=== PATIENT | male | born 1970 | race Two or more races ===

== ENCOUNTER 2021-06-10 22:31 | Inpatient (IN) | payer MEDICARE, OTHER ==
[~2021-06-10] VITALS: Ht 165.1 cm; Wt 193.2 kg
[2021-06-11 02:38] LABS: Basophils # (auto) 0.1 10 ^3/uL (0-0.2); Basophils % (auto) 1.3 % (0.0-2.0); Eosinophils # (auto) 0.1 10 ^3/uL (0-0.8); Eosinophils % (auto) 1.4 % (0.0-7.0); Hematocrit 44.5 % (41.0-53.0); Hemoglobin 14.7 g/dL (13.5-17.5); Lymphocytes # (auto) 2.4 10 ^3/uL (0.4-5.4); Lymphocytes % (auto) 36.1 % (10.0-50.0); Mean Corpuscular Hemoglobin 28.7 pg (28.0-32.0); Mean Corpuscular Hgb Conc. 33.1 g/dL (32.0-36.0); Mean Corpuscular Volume 86.6 fL (80.0-100.0); Monocytes # (auto) 0.5 10 ^3/uL (0-1.3); Monocytes % (auto) 6.8 % (0.0-12.0); Neutrophils # (auto) 3.6 10 ^3/uL (1.6-8.6); Neutrophils % (auto) 54.4 % (37.0-80.0); Nucleated Red Blood Cells % 0.1 %; Red Blood Cells 5.14 10^6/uL (4.5-5.90); Red Cell Distribution Width 16.1 % (11.8-14.3); White Blood Cell 6.7 10^3/uL (4.4-10.8)
[2021-06-11 02:59] LABS: Albumin 3.6 g/dL (3.4-5.0); BUN/Creatinine Ratio 13.9; Calcium 8.7 mg/dL (8.5-10.1); Magnesium 2.1 mg/dL (1.6-2.6); Potassium 4.8 mmol/L (3.5-5.1)
[2021-06-11 03:04] LABS: Lactic Acid w/Reflex 2.1 mmol/L (0.4-2.0)
[2021-06-11 03:06] LABS: Bilirubin, Total 0.4 mg/dL (0.2-1.0); Total Protein 7.8 g/dL (6.4-8.2)
[2021-06-11] MEDS ORDERED: SITA100T7 PO (05:39)
[2021-06-11] MEDS ORDERED: ALBU108A5 IN (05:39)
[2021-06-11] MEDS ORDERED: ICOS1CAP OR (05:40)
[2021-06-11] MEDS ORDERED: CARV12.544 PO (05:41)
[2021-06-11] MEDS ORDERED: ALL100T PO (05:41)
[2021-06-11] MEDS ORDERED: HYDR50TA15 PO ×2 (05:42→05:46)
[2021-06-11] MEDS ORDERED: SPIR25TA8 PO (05:43)
[2021-06-11] MEDS ORDERED: levETIRAcetam 500 MG TAB PO ONE (05:45)
[2021-06-11] MEDS ORDERED: SODIUM CHLORIDE 0.9% 1,000 ML IV ONE (05:45)
[2021-06-11] MEDS ORDERED: levoFLOXacin 750MG 150 ML IV ONE (05:45)
[2021-06-11] MEDS ORDERED: VANCOMYCIN 1GM/250ML 250 ML IV ONE (05:45)
[2021-06-11] MEDS ORDERED: LISI2.5T47 PO (05:47)
[2021-06-11] MEDS ORDERED: GLYB5TAB9 PO (05:48)
[2021-06-11] MEDS ORDERED: ATOR20TA50 PO (05:48)
[2021-06-11] MEDS ORDERED: ASPI1TAB20 PO (05:49)
[2021-06-11] MEDS ORDERED: KEP500T PO (05:49)
[2021-06-11] MEDS ORDERED: AMIO200T33 PO (05:50)
[2021-06-11] MEDS ORDERED: HYDR25TA4 PO (05:50)
[2021-06-11] MEDS ORDERED: METF-489 PO (05:51)
[2021-06-11] MEDS ORDERED: HYDROcodone-ACET 5/325MG TAB PO PRN (06:15)
[2021-06-11] MEDS ORDERED: ACETAMINOPHEN 325 MG TAB PO PRN (06:15)
[2021-06-11] MEDS ORDERED: DEXTROSE (50%) 50ML SYRG IV PRN (06:15)
[2021-06-11] MEDS ORDERED: VANCOMYCIN PER PHARMACY 0 MG IV SCH (06:15)
[2021-06-11] MEDS ORDERED: ONDANSETRON HCL 4 MG/2 ML VIAL IV PRN (06:15)
[2021-06-11] MEDS ORDERED: TEMAZEPAM 15 MG CAP PO PRN (06:15)
[2021-06-11] MEDS ORDERED: VANCOMYCIN 1,500 MG in D5W 5% 250 ML IV SCH (06:24)
[2021-06-11] MEDS ORDERED: levoFLOXacin 250MG 50 ML IV SCH (06:30)
[2021-06-11] MEDS ORDERED: levoFLOXacin 500MG 100 ML IV ONE (07:00)
[2021-06-11] MEDS: ALLOPURINOL 100 MG TAB PO SCH (10:00)
[2021-06-11] MEDS: CARVEDILOL 12.5 MG TAB PO SCH ×3 (10:00→22:45)
[2021-06-11] MEDS: PANTOPRAZOLE 40 MG TAB PO SCH (10:00)
[2021-06-11] MEDS: CLINDAMYCIN 600MG IV 50 ML IV SCH ×2 (10:00→18:43)
[2021-06-11] MEDS: AMIODARONE HCL 200 MG TAB PO SCH (10:00)
[2021-06-11] MEDS: levETIRAcetam 500 MG TAB PO SCH ×2 (10:00→22:55)
[2021-06-11] MEDS: ACCU-CHEK COMFORT CURVE STRIP VI SCH ×3 (12:13→23:42)
[2021-06-11] MEDS: InsuLIN REG 1unit/0.01ml Soln (100units/ml) SC SCH ×3 (12:13→23:42)
[2021-06-11] MEDS: hydrALAZINE HCL 25 MG TAB PO SCH ×2 (14:01→23:20)
[2021-06-11] MEDS ORDERED: LORazepam 2MG/ML-1ML VIAL IV ONE (14:30)
[2021-06-11] MEDS ORDERED: FUROSEMIDE 40 MG/4 ML VIAL IV ONE (15:00)
[2021-06-11] MEDS: ATORVASTATIN 20 MG TAB PO SCH (22:45)
[2021-06-11 22:52] LABS: Urine Bacteria FEW /hpf (None Seen); Urine Blood Negative /uL (Negative); Urine Specific Gravity 1.011 (1.001-1.035); Urine WBC <1 /hpf (0 - 3)
[2021-06-12 00:50] VITALS: BP 133/68
[2021-06-12] MEDS: CLINDAMYCIN 600MG IV 50 ML IV SCH ×3 (02:01→17:17)
[2021-06-12 04:57] VITALS: BP 135/71
[2021-06-12] MEDS: hydrALAZINE HCL 25 MG TAB PO SCH ×3 (05:24→21:24)
[2021-06-12] MEDS: ACCU-CHEK COMFORT CURVE STRIP VI SCH ×4 (05:46→23:59)
[2021-06-12] MEDS: InsuLIN REG 1unit/0.01ml Soln (100units/ml) SC SCH ×3 (05:47→17:18)
[2021-06-12] MEDS ORDERED: levoFLOXacin 250MG 50 ML IV SCH (07:00)
[2021-06-12 07:27] LABS: Basophils # (auto) 0 10 ^3/uL (0-0.2); Basophils % (auto) 0.5 % (0.0-2.0); Eosinophils # (auto) 0.1 10 ^3/uL (0-0.8); Eosinophils % (auto) 1.9 % (0.0-7.0); Hematocrit 40.3 % (41.0-53.0); Hemoglobin 13.4 g/dL (13.5-17.5); Lymphocytes # (auto) 2.3 10 ^3/uL (0.4-5.4); Lymphocytes % (auto) 37.5 % (10.0-50.0); Mean Corpuscular Hemoglobin 28.6 pg (28.0-32.0); Mean Corpuscular Hgb Conc. 33.1 g/dL (32.0-36.0); Mean Corpuscular Volume 86.3 fL (80.0-100.0); Monocytes # (auto) 0.5 10 ^3/uL (0-1.3); Monocytes % (auto) 8.9 % (0.0-12.0); Neutrophils # (auto) 3.1 10 ^3/uL (1.6-8.6); Neutrophils % (auto) 51.2 % (37.0-80.0); Nucleated Red Blood Cells % 0.1 %; Red Blood Cells 4.67 10^6/uL (4.5-5.90); Red Cell Distribution Width 16.1 % (11.8-14.3); White Blood Cell 6.1 10^3/uL (4.4-10.8)
[2021-06-12 07:54] LABS: Albumin 3.2 g/dL (3.4-5.0); Calcium 8.5 mg/dL (8.5-10.1); Potassium 4.2 mmol/L (3.5-5.1)
[2021-06-12 07:57] LABS: Bilirubin, Total 0.6 mg/dL (0.2-1.0)
[2021-06-12 09:00] VITALS: BP 122/75
[2021-06-12] MEDS ORDERED: levoFLOXacin 500MG 100 ML IV ONE (09:00)
[2021-06-12] MEDS: FUROSEMIDE 40 MG/4 ML VIAL IV SCH (09:36)
[2021-06-12] MEDS: CARVEDILOL 12.5 MG TAB PO SCH ×2 (09:37→21:24)
[2021-06-12] MEDS: ALLOPURINOL 100 MG TAB PO SCH (09:37)
[2021-06-12] MEDS: PANTOPRAZOLE 40 MG TAB PO SCH (09:37)
[2021-06-12] MEDS: levETIRAcetam 500 MG TAB PO SCH ×2 (09:37→21:24)
[2021-06-12] MEDS: AMIODARONE HCL 200 MG TAB PO SCH (09:37)
[2021-06-12 13:00] VITALS: BP 138/82
[2021-06-12] MEDS: levoFLOXacin 500MG 100 ML IV SCH (13:03)
[2021-06-12 17:00] VITALS: BP 137/69
[2021-06-12] MEDS: ATORVASTATIN 20 MG TAB PO SCH (21:24)
[2021-06-12 21:41] VITALS: BP 142/77
[2021-06-13] MEDS: InsuLIN REG 1unit/0.01ml Soln (100units/ml) SC SCH ×5 (00:06→23:40)
[2021-06-13] MEDS: CLINDAMYCIN 600MG IV 50 ML IV SCH ×3 (02:07→17:01)
[2021-06-13 04:59] VITALS: BP 105/61
[2021-06-13] MEDS: ACCU-CHEK COMFORT CURVE STRIP VI SCH ×4 (06:05→23:38)
[2021-06-13] MEDS: hydrALAZINE HCL 25 MG TAB PO SCH ×3 (06:08→21:46)
[2021-06-13] MEDS ORDERED: diphenhdrAMINE HCL 25 MG CAP PO ONE (06:30)
[2021-06-13] MEDS ORDERED: levoFLOXacin 750MG 150 ML IV SCH (07:00)
[2021-06-13 07:19] LABS: BUN/Creatinine Ratio 12.8; Calcium 8.6 mg/dL (8.5-10.1); Potassium 4.4 mmol/L (3.5-5.1)
[2021-06-13] MEDS: FUROSEMIDE 40 MG/4 ML VIAL IV SCH (08:51)
[2021-06-13 09:00] VITALS: BP 125/68
[2021-06-13] MEDS: CARVEDILOL 12.5 MG TAB PO SCH ×2 (10:00→21:46)
[2021-06-13] MEDS: levETIRAcetam 500 MG TAB PO SCH ×2 (10:00→21:47)
[2021-06-13] MEDS: ALLOPURINOL 100 MG TAB PO SCH (10:00)
[2021-06-13] MEDS: AMIODARONE HCL 200 MG TAB PO SCH (10:00)
[2021-06-13] MEDS: levoFLOXacin 500MG 100 ML IV SCH (10:25)
[2021-06-13 11:43] LABS: INR 1.07 (0.9-1.15); Partial Thromboplastin Time 31.9 sec (23.6-33.0)
[2021-06-13] MEDS ORDERED: ceFAZolin 1GM VL ONE (12:03)
[2021-06-13] MEDS ORDERED: MIDAZOLAM HCL 2MG/2ML 2ml VIAL (1mg/ml) ONE (12:04)
[2021-06-13] MEDS ORDERED: ACCU-CHEK COMFORT CURVE STRIP VI ONE (12:45)
[2021-06-13] MEDS ORDERED: ONDANSETRON HCL 4 MG/2 ML VIAL IV PRN (12:45)
[2021-06-13 13:40] VITALS: BP 148/83
[2021-06-13 17:00] VITALS: BP 141/81
[2021-06-13] MEDS: ATORVASTATIN 20 MG TAB PO SCH (21:47)
[2021-06-13 22:00] VITALS: BP 132/67
[2021-06-14] MEDS: CLINDAMYCIN 600MG IV 50 ML IV SCH ×2 (01:16→09:47)
[2021-06-14 05:00] VITALS: BP 122/77
[2021-06-14] MEDS: ACCU-CHEK COMFORT CURVE STRIP VI SCH ×2 (06:28→12:09)
[2021-06-14] MEDS: InsuLIN REG 1unit/0.01ml Soln (100units/ml) SC SCH ×2 (06:31→12:13)
[2021-06-14] MEDS: hydrALAZINE HCL 25 MG TAB PO SCH ×2 (06:31→14:00)
[2021-06-14 09:00] VITALS: BP 122/69
[2021-06-14] MEDS: CARVEDILOL 12.5 MG TAB PO SCH (09:43)
[2021-06-14] MEDS: ALLOPURINOL 100 MG TAB PO SCH (09:43)
[2021-06-14] MEDS: FUROSEMIDE 40 MG/4 ML VIAL IV SCH (09:43)
[2021-06-14] MEDS: AMIODARONE HCL 200 MG TAB PO SCH (09:43)
[2021-06-14] MEDS: levETIRAcetam 500 MG TAB PO SCH (09:44)
[2021-06-14] MEDS: levoFLOXacin 500MG 100 ML IV SCH ×2 (11:43→12:09)
[2021-06-14 13:00] VITALS: BP 139/80
[2021-06-14 13:29] VITALS: BP 122/69
== END 2021-06-14 14:20 | disposition home or self-care (01) | DRG 622 ==
LOC: EDBD 22:31 → ER 22:34 → OVERFLOW 06-11 06:03 → EAST 06-11 22:59
PROVIDERS: ADMIT Nurse Practitioner; ATTEND Internal Medicine
PROC: 0HDRXZZ Extraction of Toe Nail, External Approach (ICD-10-PCS; 2021-06-13)
PROC: 0JBQ0ZZ Excision of Right Foot Subcutaneous Tissue and Fascia, Open Approach (ICD-10-PCS; principal; 2021-06-13 12:05)
DX: E11.621 Type 2 diabetes mellitus with foot ulcer (principal); I50.43 Acute on chronic combined systolic (congestive) and diastolic (congestive) heart failure; E44.0 Moderate protein-calorie malnutrition; Z68.45 Body mass index [BMI] 70 or greater, adult; I13.0 Hypertensive heart and chronic kidney disease with heart failure and stage 1 through stage 4 chronic kidney disease, or unspecified chronic kidney disease; S91.209A Unspecified open wound of unspecified toe(s) with damage to nail, initial encounter; L97.519 Non-pressure chronic ulcer of other part of right foot with unspecified severity; E66.01 Morbid (severe) obesity due to excess calories; N18.30 Chronic kidney disease, stage 3 unspecified; J44.9 Chronic obstructive pulmonary disease, unspecified; G47.30 Sleep apnea, unspecified; I27.20 Pulmonary hypertension, unspecified; E11.22 Type 2 diabetes mellitus with diabetic chronic kidney disease; E11.628 Type 2 diabetes mellitus with other skin complications; X58.XXXA Exposure to other specified factors, initial encounter; E78.5 Hyperlipidemia, unspecified; R56.9 Unspecified convulsions; Z20.822 Contact with and (suspected) exposure to COVID-19; Z88.0 Allergy status to penicillin; Z79.899 Other long term (current) drug therapy; Z82.5 Family history of asthma and other chronic lower respiratory diseases; Z83.3 Family history of diabetes mellitus; Y93.89 Activity, other specified; Y92.89 Other specified places as the place of occurrence of the external cause; Y99.8 Other external cause status
CPT/HCPCS: 36415; 71045; 73700; 78315; 80048; 80053; 81001; 82962; 83036; 83605; 83735; 83880; 85025; 85610; 85730; 86850; 86900; 86901; 87040; 87070; 87075; 87077; 87186; 87205; 87426; 93306; 93926; 96361; 96365; 96375; G0378; J0690; J1815; J1956; J2250; J3490; J7060

== ENCOUNTER 2021-11-16 19:36 | Inpatient (IN) | payer MEDICARE, OTHER ==
[~2021-11-16] VITALS: Ht 167.6 cm; Wt 206.6 kg
[~2021-11-16 19:36] MED LIST: ALBU108A5 IN; ALL100T PO; AMIO200T33 PO; ASPI1TAB20 PO; ATOR20TA50 PO; CARV12.544 PO; GLYB5TAB9 PO; HYDR25TA4 PO; HYDR50TA15 PO; ICOS1CAP OR; KEP500T PO; LISI2.5T47 PO; SITA100T7 PO; SPIR25TA8 PO
[2021-11-16] MEDS ORDERED: FUROSEMIDE 100 MG/10ML VIAL IV ONE (20:15)
[2021-11-16 21:10] LABS: Basophils # (auto) 0.1 10 ^3/uL (0-0.2); Basophils % (auto) 0.9 % (0.0-2.0); Eosinophils # (auto) 0.1 10 ^3/uL (0-0.8); Eosinophils % (auto) 1.3 % (0.0-7.0); Hematocrit 47.9 % (41.0-53.0); Hemoglobin 15.7 g/dL (13.5-17.5); Lymphocytes # (auto) 1.9 10 ^3/uL (0.4-5.4); Lymphocytes % (auto) 32.3 % (10.0-50.0); Mean Corpuscular Hemoglobin 28.1 pg (28.0-32.0); Mean Corpuscular Hgb Conc. 32.7 g/dL (32.0-36.0); Mean Corpuscular Volume 86.1 fL (80.0-100.0); Monocytes # (auto) 0.5 10 ^3/uL (0-1.3); Monocytes % (auto) 8.2 % (0.0-12.0); Neutrophils # (auto) 3.3 10 ^3/uL (1.6-8.6); Neutrophils % (auto) 57.3 % (37.0-80.0); Nucleated Red Blood Cells % 0.2 %; Red Blood Cells 5.56 10^6/uL (4.5-5.90); Red Cell Distribution Width 16.4 % (11.8-14.3); White Blood Cell 5.8 10^3/uL (4.4-10.8)
[2021-11-16 21:27] LABS: Albumin 3.1 g/dL (3.4-5.0); BUN/Creatinine Ratio 14.1; Calcium 8.4 mg/dL (8.5-10.1); Magnesium 1.8 mg/dL (1.6-2.6); Potassium 4.5 mmol/L (3.5-5.1)
[2021-11-16 21:32] LABS: Bilirubin, Total 0.6 mg/dL (0.2-1.0); Total Protein 6.3 g/dL (6.4-8.2)
[2021-11-16 22:04] LABS: INR 1.1 (0.9-1.15); Partial Thromboplastin Time 25.4 sec (23.6-33.0)
[2021-11-17] MEDS ORDERED: HYDROcodone-ACET 5/325MG TAB PO PRN (06:15)
[2021-11-17] MEDS ORDERED: DEXTROSE (50%) 50ML SYRG IV PRN (06:15)
[2021-11-17] MEDS ORDERED: MORPHINE SULFATE 4 MG/ML SYR/VIAL IV PRN (06:15)
[2021-11-17] MEDS ORDERED: DOCUSATE SOD 100 MG CAP PO PRN (06:15)
[2021-11-17] MEDS ORDERED: ONDANSETRON HCL 4 MG/2 ML VIAL IV PRN (06:15)
[2021-11-17] MEDS ORDERED: NITROGLYCERIN 0.4 MG SL TAB SL PRN (06:45)
[2021-11-17] MEDS ORDERED: MORPHINE SULFATE INJECTION 2 MG/ML SYRG IV PRN (06:45)
[2021-11-17 07:41] LABS: Urine WBC None Seen /hpf (0 - 3)
[2021-11-17 07:51] LABS: Basophils # (auto) 0.1 10 ^3/uL (0-0.2); Basophils % (auto) 1.7 % (0.0-2.0); Eosinophils # (auto) 0.1 10 ^3/uL (0-0.8); Eosinophils % (auto) 0.9 % (0.0-7.0); Hemoglobin 16.2 g/dL (13.5-17.5); Lymphocytes # (auto) 1.6 10 ^3/uL (0.4-5.4); Lymphocytes % (auto) 25.1 % (10.0-50.0); Mean Corpuscular Hemoglobin 28.1 pg (28.0-32.0); Mean Corpuscular Hgb Conc. 32.4 g/dL (32.0-36.0); Mean Corpuscular Volume 86.6 fL (80.0-100.0); Monocytes # (auto) 0.6 10 ^3/uL (0-1.3); Monocytes % (auto) 9.5 % (0.0-12.0); Neutrophils % (auto) 62.8 % (37.0-80.0); Nucleated Red Blood Cells % 0.2 %; Red Blood Cells 5.78 10^6/uL (4.5-5.90); Red Cell Distribution Width 16.4 % (11.8-14.3); White Blood Cell 6.4 10^3/uL (4.4-10.8)
[2021-11-17 08:12] VITALS: BP 158/81
[2021-11-17 08:12] LABS: Potassium 5.1 mmol/L (3.5-5.1)
[2021-11-17 08:24] LABS: Albumin 3.3 g/dL (3.4-5.0); Calcium 8.8 mg/dL (8.5-10.1); Total Protein 7.1 g/dL (6.4-8.2)
[2021-11-17 08:40] LABS: Urine Bacteria NONE SEEN /hpf (None Seen); Urine Blood 3+ /uL (Negative); Urine Specific Gravity 1.012 (1.001-1.035)
[2021-11-17] MEDS: InsuLIN REG 1unit/0.01ml Soln (100units/ml) SC SCH ×4 (09:09→22:14)
[2021-11-17] MEDS: ACCU-CHEK COMFORT CURVE STRIP VI SCH ×4 (09:10→22:14)
[2021-11-17] MEDS ORDERED: FAMOTIDINE (10MG/ML) 2ML VL IV SCH (10:00)
[2021-11-17] MEDS ORDERED: FUROSEMIDE 40 MG/4 ML VIAL IV SCH (10:00)
[2021-11-17] MEDS: B-COMPLEX W/ C & FOLIC ACID(NEPHROVITE TAB) PO SCH (10:21)
[2021-11-17] MEDS: ASPirin 81 mg TAB PO SCH (10:21)
[2021-11-17] MEDS: FUROSEMIDE 100 MG/10ML VIAL IV SCH (10:22)
[2021-11-17] MEDS: FAMOTIDINE (10MG/ML) 2ML VL IV SCH ×2 (10:22→22:11)
[2021-11-17] MEDS: CARVEDILOL 12.5 MG TAB PO SCH ×2 (10:22→22:12)
[2021-11-17] MEDS: HEPARIN SODIUM (PORCINE) 5000 UNITS/ML 1ML VIAL SC SCH ×2 (10:23→22:13)
[2021-11-17 11:15] VITALS: BP 137/79
[2021-11-17] MEDS ORDERED: METF500S PO (12:32)
[2021-11-17 13:00] VITALS: BP 160/74
[2021-11-17] MEDS ORDERED: metOLazone 5 MG TAB PO ONE (13:15)
[2021-11-17] MEDS: SODIUM CHLOR 0.9% PF (SALINE LOCK) 10ML VIAL/SYR IV SCH ×2 (16:43→22:12)
[2021-11-17 17:32] VITALS: BP 152/95
[2021-11-17 22:00] VITALS: BP 138/83
[2021-11-17] MEDS: ATORVASTATIN 20 MG TAB PO SCH (22:12)
[2021-11-18 05:00] VITALS: BP 166/90
[2021-11-18 05:30] LABS: Basophils # (auto) 0 10 ^3/uL (0-0.2); Basophils % (auto) 0.6 % (0.0-2.0); Eosinophils # (auto) 0.1 10 ^3/uL (0-0.8); Eosinophils % (auto) 0.8 % (0.0-7.0); Hematocrit 48.3 % (41.0-53.0); Lymphocytes % (auto) 23.9 % (10.0-50.0); Mean Corpuscular Hemoglobin 28.5 pg (28.0-32.0); Mean Corpuscular Volume 86.4 fL (80.0-100.0); Monocytes # (auto) 0.9 10 ^3/uL (0-1.3); Monocytes % (auto) 11.3 % (0.0-12.0); Neutrophils # (auto) 5.2 10 ^3/uL (1.6-8.6); Neutrophils % (auto) 63.4 % (37.0-80.0); Nucleated Red Blood Cells % 0.3 %; Red Blood Cells 5.59 10^6/uL (4.5-5.90); Red Cell Distribution Width 16.1 % (11.8-14.3); White Blood Cell 8.3 10^3/uL (4.4-10.8)
[2021-11-18 05:42] LABS: Calcium 8.4 mg/dL (8.5-10.1); Potassium 5.3 mmol/L (3.5-5.1)
[2021-11-18 05:47] LABS: Bilirubin, Total 1.3 mg/dL (0.2-1.0); Total Protein 6.6 g/dL (6.4-8.2)
[2021-11-18] MEDS: SODIUM CHLOR 0.9% PF (SALINE LOCK) 10ML VIAL/SYR IV SCH ×3 (06:16→22:00)
[2021-11-18] MEDS: ACCU-CHEK COMFORT CURVE STRIP VI SCH ×4 (06:16→21:30)
[2021-11-18] MEDS: InsuLIN REG 1unit/0.01ml Soln (100units/ml) SC SCH ×4 (06:17→22:07)
[2021-11-18 08:30] VITALS: BP 145/91
[2021-11-18] MEDS: FAMOTIDINE (10MG/ML) 2ML VL IV SCH ×2 (09:28→22:04)
[2021-11-18] MEDS: FUROSEMIDE 100 MG/10ML VIAL IV SCH (09:30)
[2021-11-18] MEDS: HEPARIN SODIUM (PORCINE) 5000 UNITS/ML 1ML VIAL SC SCH ×2 (09:39→22:05)
[2021-11-18] MEDS: ASPirin 81 mg TAB PO SCH ×2 (10:00→12:00)
[2021-11-18] MEDS: B-COMPLEX W/ C & FOLIC ACID(NEPHROVITE TAB) PO SCH ×2 (10:00→12:00)
[2021-11-18] MEDS: CARVEDILOL 12.5 MG TAB PO SCH ×3 (10:00→22:06)
[2021-11-18] MEDS ORDERED: SODIUM BICARBONATE 8.4% INJ 50ML SYRINGE IV ONE (11:15)
[2021-11-18] MEDS ORDERED: ALBUTEROL SULF 2.5 MG/0.5ML(0.5%) NEB SOLN NEB ONE (11:15)
[2021-11-18] MEDS ORDERED: FUROSEMIDE 20 MG/2 ML VIAL IV ONE (11:15)
[2021-11-18] MEDS ORDERED: DEXTROSE (50%) 50ML SYRG IV ONE (11:15)
[2021-11-18] MEDS ORDERED: InsuLIN REG 1unit/0.01ml Soln (100units/ml) IV ONE (11:15)
[2021-11-18] MEDS ORDERED: metOLazone 5 MG TAB PO ONE (12:45)
[2021-11-18] MEDS ORDERED: DEXTROSE 10% 250 ML IV ONE (12:45)
[2021-11-18 13:00] VITALS: BP 135/76
[2021-11-18] MEDS: ACETAMINOPHEN 325 MG TAB PO PRN (15:25)
[2021-11-18 16:56] VITALS: BP 127/75
[2021-11-18] MEDS: ALBUTEROL SULF 2.5 MG/0.5ML(0.5%) NEB SOLN NEB PRN (18:59)
[2021-11-18] MEDS: ATORVASTATIN 20 MG TAB PO SCH (22:05)
[2021-11-18 22:30] VITALS: BP 140/82
[2021-11-18 22:47] VITALS: BP 140/82
[2021-11-19 05:20] VITALS: BP 125/71
[2021-11-19] MEDS: SODIUM CHLOR 0.9% PF (SALINE LOCK) 10ML VIAL/SYR IV SCH ×3 (05:40→22:12)
[2021-11-19] MEDS: ACETAMINOPHEN 325 MG TAB PO PRN (05:55)
[2021-11-19] MEDS: ACCU-CHEK COMFORT CURVE STRIP VI SCH ×4 (06:10→22:14)
[2021-11-19 06:11] LABS: Basophils # (auto) 0 10 ^3/uL (0-0.2); Basophils % (auto) 0.6 % (0.0-2.0); Eosinophils # (auto) 0.1 10 ^3/uL (0-0.8); Hemoglobin 16.1 g/dL (13.5-17.5); Lymphocytes # (auto) 1.2 10 ^3/uL (0.4-5.4); Lymphocytes % (auto) 22.5 % (10.0-50.0); Mean Corpuscular Hemoglobin 28.8 pg (28.0-32.0); Mean Corpuscular Hgb Conc. 33.4 g/dL (32.0-36.0); Monocytes # (auto) 0.6 10 ^3/uL (0-1.3); Monocytes % (auto) 10.8 % (0.0-12.0); Neutrophils # (auto) 3.4 10 ^3/uL (1.6-8.6); Neutrophils % (auto) 65.1 % (37.0-80.0); Nucleated Red Blood Cells % 0.1 %; Red Blood Cells 5.58 10^6/uL (4.5-5.90); Red Cell Distribution Width 15.7 % (11.8-14.3); White Blood Cell 5.3 10^3/uL (4.4-10.8)
[2021-11-19 06:20] LABS: Potassium 4.5 mmol/L (3.5-5.1)
[2021-11-19 06:24] LABS: Calcium 8.7 mg/dL (8.5-10.1)
[2021-11-19] MEDS: InsuLIN REG 1unit/0.01ml Soln (100units/ml) SC SCH ×4 (06:58→22:14)
[2021-11-19 08:37] VITALS: BP 125/77
[2021-11-19] MEDS: FUROSEMIDE 100 MG/10ML VIAL IV SCH (09:04)
[2021-11-19] MEDS: ASPirin 81 mg TAB PO SCH (09:05)
[2021-11-19] MEDS: FAMOTIDINE (10MG/ML) 2ML VL IV SCH ×2 (09:05→22:12)
[2021-11-19] MEDS: B-COMPLEX W/ C & FOLIC ACID(NEPHROVITE TAB) PO SCH (09:06)
[2021-11-19] MEDS: CARVEDILOL 12.5 MG TAB PO SCH ×2 (09:06→22:13)
[2021-11-19] MEDS: HEPARIN SODIUM (PORCINE) 5000 UNITS/ML 1ML VIAL SC SCH ×2 (09:26→22:13)
[2021-11-19 12:41] VITALS: BP 104/66
[2021-11-19] MEDS: ALBUTEROL SULF 2.5 MG/0.5ML(0.5%) NEB SOLN NEB PRN (13:19)
[2021-11-19 16:46] VITALS: BP 135/85
[2021-11-19 22:00] VITALS: BP 118/76
[2021-11-19] MEDS: ATORVASTATIN 20 MG TAB PO SCH (22:13)
[2021-11-19 22:30] VITALS: BP 118/76
[2021-11-20] VITALS: BP 118/76
[2021-11-20 05:00] VITALS: BP 130/75
[2021-11-20] MEDS: SODIUM CHLOR 0.9% PF (SALINE LOCK) 10ML VIAL/SYR IV SCH ×2 (05:21→14:00)
[2021-11-20] MEDS: ACCU-CHEK COMFORT CURVE STRIP VI SCH ×2 (06:15→11:30)
[2021-11-20] MEDS: InsuLIN REG 1unit/0.01ml Soln (100units/ml) SC SCH ×2 (06:17→12:46)
[2021-11-20 06:39] LABS: Basophils # (auto) 0 10 ^3/uL (0-0.2); Basophils % (auto) 0.4 % (0.0-2.0); Eosinophils # (auto) 0.1 10 ^3/uL (0-0.8); Eosinophils % (auto) 1.8 % (0.0-7.0); Hematocrit 46.9 % (41.0-53.0); Hemoglobin 15.7 g/dL (13.5-17.5); Lymphocytes # (auto) 1.3 10 ^3/uL (0.4-5.4); Lymphocytes % (auto) 28.8 % (10.0-50.0); Mean Corpuscular Hemoglobin 28.6 pg (28.0-32.0); Mean Corpuscular Hgb Conc. 33.5 g/dL (32.0-36.0); Mean Corpuscular Volume 85.3 fL (80.0-100.0); Monocytes # (auto) 0.5 10 ^3/uL (0-1.3); Monocytes % (auto) 11.9 % (0.0-12.0); Neutrophils # (auto) 2.6 10 ^3/uL (1.6-8.6); Neutrophils % (auto) 57.1 % (37.0-80.0); Nucleated Red Blood Cells % 0.2 %; Red Cell Distribution Width 15.6 % (11.8-14.3); White Blood Cell 4.6 10^3/uL (4.4-10.8)
[2021-11-20 06:52] LABS: BUN/Creatinine Ratio 17.5; Calcium 8.6 mg/dL (8.5-10.1)
[2021-11-20 08:55] VITALS: BP 105/62
[2021-11-20] MEDS: HEPARIN SODIUM (PORCINE) 5000 UNITS/ML 1ML VIAL SC SCH (08:57)
[2021-11-20] MEDS: ASPirin 81 mg TAB PO SCH (08:57)
[2021-11-20] MEDS: B-COMPLEX W/ C & FOLIC ACID(NEPHROVITE TAB) PO SCH (08:57)
[2021-11-20] MEDS: FAMOTIDINE (10MG/ML) 2ML VL IV SCH (09:14)
[2021-11-20 09:55] VITALS: BP 105/62
[2021-11-20] MEDS: CARVEDILOL 12.5 MG TAB PO SCH (10:00)
[2021-11-20] MEDS ORDERED: FURO1TAB32 PO (10:26)
[2021-11-20] MEDS: FUROSEMIDE 100 MG/10ML VIAL IV SCH (10:43)
[2021-11-20 13:00] VITALS: BP 115/69
[2021-11-20 13:14] VITALS: BP 105/62
== END 2021-11-20 15:36 | disposition home or self-care (01) | DRG 291 ==
LOC: ER 19:40 → TELE 11-17 06:33 → TELE-WESTW 11-17 11:20
PROVIDERS: ADMIT Nurse Practitioner Family; ATTEND Internal Medicine
PROC: 5A09357 Assistance with Respiratory Ventilation, Less than 24 Consecutive Hours, Continuous Positive Airway Pressure (ICD-10-PCS; principal; 2021-11-17)
PROC: 5A09357 Assistance with Respiratory Ventilation, Less than 24 Consecutive Hours, Continuous Positive Airway Pressure (ICD-10-PCS; 2021-11-18)
DX: I13.0 Hypertensive heart and chronic kidney disease with heart failure and stage 1 through stage 4 chronic kidney disease, or unspecified chronic kidney disease (principal); J96.21 Acute and chronic respiratory failure with hypoxia; I50.23 Acute on chronic systolic (congestive) heart failure; Z68.45 Body mass index [BMI] 70 or greater, adult; E88.09 Other disorders of plasma-protein metabolism, not elsewhere classified; E11.65 Type 2 diabetes mellitus with hyperglycemia; N18.30 Chronic kidney disease, stage 3 unspecified; E11.22 Type 2 diabetes mellitus with diabetic chronic kidney disease; E66.01 Morbid (severe) obesity due to excess calories; E87.5 Hyperkalemia; Z20.822 Contact with and (suspected) exposure to COVID-19; E78.5 Hyperlipidemia, unspecified; J44.9 Chronic obstructive pulmonary disease, unspecified; Z88.0 Allergy status to penicillin; Z91.14 Patient's other noncompliance with medication regimen; Z82.5 Family history of asthma and other chronic lower respiratory diseases; Z83.3 Family history of diabetes mellitus; Z95.810 Presence of automatic (implantable) cardiac defibrillator; Z79.84 Long term (current) use of oral hypoglycemic drugs
CPT/HCPCS: 36415; 51702; 71045; 76700; 80048; 80053; 81001; 82962; 83036; 83735; 83880; 84484; 85025; 85610; 85730; 94640; 94660; 96374; 96375; 96376; G0378; J1815; J3490; J7060

== ENCOUNTER 2022-09-17 20:07 | Emergency (ER) | payer OTHER ==
[~2022-09-17] VITALS: Ht 167.6 cm; Wt 191.0 kg
[~2022-09-17 20:07] MED LIST changes: +FURO1TAB32 PO; +METF500S PO
[2022-09-17 21:40] LABS: Basophils # (auto) 0 10 ^3/uL (0-0.2); Eosinophils # (auto) 0 10 ^3/uL (0-0.8); Eosinophils % (auto) 0.4 % (0.0-7.0); Mean Corpuscular Volume 90.5 fL (80.0-100.0); Monocytes # (auto) 0.5 10 ^3/uL (0-1.3); Neutrophils # (auto) 7.8 10 ^3/uL (1.6-8.6); White Blood Cell 9.8 10^3/uL (4.4-10.8)
[2022-09-17 21:42] LABS: Basophils % (auto) 0.3 % (0.0-2.0); Hematocrit 54.9 % (41.0-53.0); Hemoglobin 17.9 g/dL (13.5-17.5); Lymphocytes # (auto) 1.4 10 ^3/uL (0.4-5.4); Lymphocytes % (auto) 14.5 % (10.0-50.0); Mean Corpuscular Hemoglobin 29.5 pg (28.0-32.0); Mean Corpuscular Hgb Conc. 32.6 g/dL (32.0-36.0); Monocytes % (auto) 5.1 % (0.0-12.0); Neutrophils % (auto) 79.7 % (37.0-80.0); Nucleated Red Blood Cells % 0.3 %; Red Blood Cells 6.07 10^6/uL (4.5-5.90); Red Cell Distribution Width 15.7 % (11.8-14.3)
[2022-09-17 22:08] LABS: Albumin 3.4 g/dL (3.4-5.0); BUN/Creatinine Ratio 14.5; Bilirubin, Total 1.8 mg/dL (0.2-1.0); Calcium 8.9 mg/dL (8.5-10.1); Total Protein 6.5 g/dL (6.4-8.2)
[2022-09-18] MEDS ORDERED: FURO1TAB33 PO (07:00)
[2022-09-18] MEDS ORDERED: HYDROcodone-ACET 7.5/325MG TAB PO ONE (08:00)
[2022-09-18] MEDS ORDERED: HYDR-4902 PO (08:01)
[2022-09-18 08:30] VITALS: BP 132/54
== END 2022-09-18 10:04 | disposition home or self-care (01) ==
LOC: EDUNIT# 20:07 → EDBD 20:07 → ER 20:07
DX: R10.13 Epigastric pain (principal); N17.9 Acute kidney failure, unspecified; I11.0 Hypertensive heart disease with heart failure; I50.9 Heart failure, unspecified; J44.9 Chronic obstructive pulmonary disease, unspecified; E78.5 Hyperlipidemia, unspecified; Z79.899 Other long term (current) drug therapy; Z79.82 Long term (current) use of aspirin; Z88.0 Allergy status to penicillin
CPT/HCPCS: 36415; 71045; 80053; 83690; 83880; 84484; 85025; 93005

== ENCOUNTER 2022-10-06 16:57 | Inpatient (IN) | payer OTHER ==
[~2022-10-06] VITALS: Ht 167.6 cm; Wt 218.0 kg
[~2022-10-06 16:57] MED LIST changes: +FURO1TAB33 PO
[2022-10-06 19:12] LABS: Basophils # (auto) 0.1 10 ^3/uL (0-0.2); Basophils % (auto) 0.8 % (0.0-2.0); Eosinophils # (auto) 0.1 10 ^3/uL (0-0.8); Eosinophils % (auto) 1.5 % (0.0-7.0); Hematocrit 48.3 % (41.0-53.0); Hemoglobin 15.7 g/dL (13.5-17.5); Lymphocytes # (auto) 1.6 10 ^3/uL (0.4-5.4); Lymphocytes % (auto) 23.3 % (10.0-50.0); Mean Corpuscular Hemoglobin 29.7 pg (28.0-32.0); Mean Corpuscular Hgb Conc. 32.5 g/dL (32.0-36.0); Mean Corpuscular Volume 91.5 fL (80.0-100.0); Monocytes # (auto) 0.7 10 ^3/uL (0-1.3); Monocytes % (auto) 10.3 % (0.0-12.0); Neutrophils # (auto) 4.4 10 ^3/uL (1.6-8.6); Neutrophils % (auto) 64.1 % (37.0-80.0); Nucleated Red Blood Cells % 0.3 %; Red Blood Cells 5.28 10^6/uL (4.5-5.90); White Blood Cell 6.8 10^3/uL (4.4-10.8)
[2022-10-06 19:41] LABS: Albumin 3.1 g/dL (3.4-5.0); Calcium 8.6 mg/dL (8.5-10.1); Potassium 4.6 mmol/L (3.5-5.1)
[2022-10-06 19:44] LABS: BUN/Creatinine Ratio 19.8; Bilirubin, Total 0.8 mg/dL (0.2-1.0); Total Protein 6.3 g/dL (6.4-8.2)
[2022-10-06] MEDS ORDERED: ALBUTEROL SULF 2.5 MG/0.5ML(0.5%) NEB SOLN NEB ONE (23:00)
[2022-10-06] MEDS ORDERED: ALBUTEROL MEDNEB 2.5 mg/3ml NEB ONE (23:09)
[2022-10-07 04:09] VITALS: BP 118/67
[2022-10-07 06:15] VITALS: BP 123/75
[2022-10-07 11:45] VITALS: BP 123/76
[2022-10-07] MEDS ORDERED: HEPARIN SODIUM (PORCINE) 5000 UNITS/ML 1ML VIAL IV ONE (21:00)
[2022-10-07] MEDS ORDERED: ALBUTEROL SULF 2.5 MG/0.5ML(0.5%) NEB SOLN NEB PRN (21:00)
[2022-10-07] MEDS ORDERED: DEXTROSE (50%) 50ML SYRG IV PRN (21:00)
[2022-10-07] MEDS: HEPARIN DRIP/D5W 100UNITS/ML 250 ML IV SCH (21:36)
[2022-10-07 21:49] LABS: Basophils # (auto) 0 10 ^3/uL (0-0.2); Basophils % (auto) 0.4 % (0.0-2.0); Eosinophils # (auto) 0 10 ^3/uL (0-0.8); Eosinophils % (auto) 0.4 % (0.0-7.0); Hematocrit 50.1 % (41.0-53.0); Hemoglobin 16.1 g/dL (13.5-17.5); Lymphocytes # (auto) 1.2 10 ^3/uL (0.4-5.4); Mean Corpuscular Hemoglobin 29.6 pg (28.0-32.0); Mean Corpuscular Hgb Conc. 32.1 g/dL (32.0-36.0); Mean Corpuscular Volume 92.1 fL (80.0-100.0); Monocytes # (auto) 0.9 10 ^3/uL (0-1.3); Monocytes % (auto) 10.5 % (0.0-12.0); Neutrophils # (auto) 6.5 10 ^3/uL (1.6-8.6); Neutrophils % (auto) 74.7 % (37.0-80.0); Nucleated Red Blood Cells % 0.3 %; Red Blood Cells 5.44 10^6/uL (4.5-5.90); Red Cell Distribution Width 16.7 % (11.8-14.3); White Blood Cell 8.7 10^3/uL (4.4-10.8)
[2022-10-07 22:10] LABS: INR 1.16 (0.9-1.15)
[2022-10-07] MEDS: ACCU-CHEK COMFORT CURVE STRIP VI SCH (22:23)
[2022-10-07] MEDS: InsuLIN REG 1unit/0.01ml Soln (100units/ml) SC SCH (22:23)
[2022-10-07 22:25] VITALS: BP 116/82
[2022-10-07 23:17] LABS: Calcium 8.7 mg/dL (8.5-10.1); Potassium 5.4 mmol/L (3.5-5.1)
[2022-10-08] MEDS: FUROSEMIDE 40 MG/4 ML VIAL IV SCH ×3 (00:29→21:51)
[2022-10-08 00:40] LABS: Urine Bacteria FEW /hpf (None Seen); Urine Blood Negative /uL (Negative); Urine Hyaline Cast FEW /lpf (0 - 2); Urine Mucus FEW (None Seen); Urine WBC 2 /hpf (0 - 3)
[2022-10-08 00:42] VITALS: BP 139/69
[2022-10-08 02:28] VITALS: BP 141/56
[2022-10-08 03:50] LABS: Basophils # (auto) 0 10 ^3/uL (0-0.2); Basophils % (auto) 0.3 % (0.0-2.0); Eosinophils # (auto) 0 10 ^3/uL (0-0.8); Eosinophils % (auto) 0.3 % (0.0-7.0); Hematocrit 51.3 % (41.0-53.0); Hemoglobin 16.3 g/dL (13.5-17.5); Lymphocytes % (auto) 13.9 % (10.0-50.0); Mean Corpuscular Hemoglobin 29.6 pg (28.0-32.0); Mean Corpuscular Hgb Conc. 31.7 g/dL (32.0-36.0); Mean Corpuscular Volume 93.4 fL (80.0-100.0); Monocytes # (auto) 0.8 10 ^3/uL (0-1.3); Monocytes % (auto) 11.1 % (0.0-12.0); Neutrophils # (auto) 5.6 10 ^3/uL (1.6-8.6); Neutrophils % (auto) 74.4 % (37.0-80.0); Nucleated Red Blood Cells % 0.2 %; Red Cell Distribution Width 16.7 % (11.8-14.3); White Blood Cell 7.5 10^3/uL (4.4-10.8)
[2022-10-08 04:07] LABS: BUN/Creatinine Ratio 16.9; Calcium 8.8 mg/dL (8.5-10.1); Potassium 5.5 mmol/L (3.5-5.1)
[2022-10-08 04:08] LABS: INR 1.17 (0.9-1.15); Partial Thromboplastin Time 62.3 sec (24.6-33.4)
[2022-10-08 04:19] VITALS: BP 131/70
[2022-10-08] MEDS ORDERED: CALCIUM GLUC 1,000mg/50ml-NS 50 ML IV ONE (05:15)
[2022-10-08] MEDS ORDERED: InsuLIN REG 1unit/0.01ml Soln (100units/ml) IV ONE (05:15)
[2022-10-08] MEDS ORDERED: DEXTROSE (50%) 50ML SYRG IV ONE (05:15)
[2022-10-08 06:19] VITALS: BP 125/75
[2022-10-08] MEDS: ACCU-CHEK COMFORT CURVE STRIP VI SCH ×4 (07:05→22:06)
[2022-10-08] MEDS: InsuLIN REG 1unit/0.01ml Soln (100units/ml) SC SCH ×4 (07:07→22:07)
[2022-10-08] MEDS: HEPARIN DRIP/D5W 100UNITS/ML 250 ML IV SCH (09:13)
[2022-10-08] MEDS ORDERED: SODIUM ZIRCONIUM CYCL 10 GM PAK PO ONE (09:45)
[2022-10-08 12:32] LABS: INR 1.18 (0.9-1.15); Partial Thromboplastin Time 60.6 sec (24.6-33.4)
[2022-10-08 13:20] LABS: Anion Gap 5 (5-15); BUN/Creatinine Ratio 16.6; Blood Urea Nitrogen 28 mg/dL (7-18); Carbon Dioxide 30 mmol/L (21-32); Chloride 106 mmol/L (98-107); GFR African American 55 mL/min; GFR Non-African American 46 mL/min; Glucose 201 mg/dL (74-106); Potassium 5.2 mmol/L (3.5-5.1); Sodium 141 mmol/L (136-145)
[2022-10-08 13:21] LABS: Alanine Aminotransferase 31 U/L (16-61); Albumin 2.8 g/dL (3.4-5.0); Alkaline Phosphatase 53 U/L (45-117); Aspartate Aminotransferase 18 U/L (15-37); Bilirubin, Total 1.3 mg/dL (0.2-1.0); Calcium 8.8 mg/dL (8.5-10.1); Total Protein 6.2 g/dL (6.4-8.2)
[2022-10-08] MEDS ORDERED: ALBUTEROL SULF 2.5 MG/0.5ML(0.5%) NEB SOLN NEB SCH (14:00)
[2022-10-08] MEDS ORDERED: IPRATROPIUM BROM 0.5 MG/2.5ML INH SOL NEB SCH (14:00)
[2022-10-08] MEDS ORDERED: NITROGLYCERIN 0.4 MG SL TAB SL PRN (14:00)
[2022-10-08] MEDS: HYDROcodone-ACET 5/325MG TAB PO PRN (14:16)
[2022-10-08] MEDS: metOLazone 5 MG TAB PO SCH (14:16)
[2022-10-08 15:20] LABS: Basophils # (auto) 0.1 10 ^3/uL (0-0.2); Basophils % (auto) 1.1 % (0.0-2.0); Eosinophils # (auto) 0 10 ^3/uL (0-0.8); Eosinophils % (auto) 0.7 % (0.0-7.0); Hematocrit 46.4 % (41.0-53.0); Hemoglobin 15.2 g/dL (13.5-17.5); Lymphocytes # (auto) 0.8 10 ^3/uL (0.4-5.4); Lymphocytes % (auto) 12.5 % (10.0-50.0); Mean Corpuscular Hemoglobin 29.8 pg (28.0-32.0); Mean Corpuscular Hgb Conc. 32.9 g/dL (32.0-36.0); Mean Corpuscular Volume 90.8 fL (80.0-100.0); Monocytes # (auto) 0.7 10 ^3/uL (0-1.3); Monocytes % (auto) 10.8 % (0.0-12.0); Neutrophils # (auto) 4.7 10 ^3/uL (1.6-8.6); Neutrophils % (auto) 74.9 % (37.0-80.0); Nucleated Red Blood Cells % 0.2 %; Red Blood Cells 5.11 10^6/uL (4.5-5.90); Red Cell Distribution Width 16.2 % (11.8-14.3); White Blood Cell 6.2 10^3/uL (4.4-10.8)
[2022-10-08] MEDS ORDERED: ALBUTEROL MEDNEB 2.5 mg/3ml NEB ONE ×2 (18:05→23:28)
[2022-10-08 18:52] LABS: BUN/Creatinine Ratio 15.2; Calcium 8.7 mg/dL (8.5-10.1)
[2022-10-08] MEDS: IPRATROPIUM BROM 0.5 MG/2.5ML INH SOL NEB SCH (18:53)
[2022-10-08] MEDS: ALBUTEROL SULF 2.5 MG/0.5ML(0.5%) NEB SOLN NEB SCH (18:54)
[2022-10-08 20:51] LABS: Protein, Urine 83.8 mg/dL (0.0-11.9)
[2022-10-08] MEDS: levETIRAcetam 500 MG TAB PO SCH (21:51)
[2022-10-08] MEDS ORDERED: FUROSEMIDE 40 MG/4 ML VIAL IV ONE (22:00)
[2022-10-09] MEDS: HYDROcodone-ACET 5/325MG TAB PO PRN (00:11)
[2022-10-09] MEDS ORDERED: ALBUTEROL MEDNEB 2.5 mg/3ml NEB ONE ×2 (05:42→11:17)
[2022-10-09 06:14] LABS: Basophils # (auto) 0 10 ^3/uL (0-0.2); Basophils % (auto) 0.6 % (0.0-2.0); Eosinophils # (auto) 0.1 10 ^3/uL (0-0.8); Hematocrit 46.6 % (41.0-53.0); Hemoglobin 15.1 g/dL (13.5-17.5); Lymphocytes % (auto) 14.5 % (10.0-50.0); Mean Corpuscular Hemoglobin 29.4 pg (28.0-32.0); Mean Corpuscular Hgb Conc. 32.4 g/dL (32.0-36.0); Mean Corpuscular Volume 90.9 fL (80.0-100.0); Monocytes # (auto) 0.9 10 ^3/uL (0-1.3); Monocytes % (auto) 12.6 % (0.0-12.0); Neutrophils # (auto) 5.2 10 ^3/uL (1.6-8.6); Neutrophils % (auto) 71.3 % (37.0-80.0); Red Blood Cells 5.13 10^6/uL (4.5-5.90); Red Cell Distribution Width 15.9 % (11.8-14.3); White Blood Cell 7.2 10^3/uL (4.4-10.8)
[2022-10-09 06:39] LABS: Potassium 4.3 mmol/L (3.5-5.1)
[2022-10-09] MEDS: ACCU-CHEK COMFORT CURVE STRIP VI SCH ×2 (06:48→12:31)
[2022-10-09] MEDS: InsuLIN REG 1unit/0.01ml Soln (100units/ml) SC SCH ×2 (06:48→12:32)
[2022-10-09 06:49] LABS: Albumin 2.8 g/dL (3.4-5.0); BUN/Creatinine Ratio 16.1; Calcium 8.5 mg/dL (8.5-10.1); Total Protein 6.3 g/dL (6.4-8.2)
[2022-10-09] MEDS: IPRATROPIUM BROM 0.5 MG/2.5ML INH SOL NEB SCH ×3 (07:05→12:12)
[2022-10-09] MEDS: ALBUTEROL SULF 2.5 MG/0.5ML(0.5%) NEB SOLN NEB SCH ×3 (07:05→12:12)
[2022-10-09] MEDS ORDERED: FURO1TAB32 PO (07:46)
[2022-10-09] MEDS ORDERED: HYDROcodone-ACET 10/325MG TAB PO PRN ×2 (08:30→08:45)
[2022-10-09] MEDS ORDERED: HYDROcodone-ACET 5/325MG TAB PO PRN (08:45)
[2022-10-09] MEDS: levETIRAcetam 500 MG TAB PO SCH (09:41)
[2022-10-09] MEDS: metOLazone 5 MG TAB PO SCH (09:41)
[2022-10-09] MEDS: FUROSEMIDE 40 MG/4 ML VIAL IV SCH (09:42)
[2022-10-09] MEDS ORDERED: ALLOPURINOL 100 MG TAB PO SCH (10:00)
[2022-10-09 16:00] VITALS: BP 117/75
== END 2022-10-09 17:00 | DRG 291 ==
LOC: ER 16:57 → TELE 10-08 14:39
PROVIDERS: ADMIT Hospitalist; ATTEND Hospitalist
PROC: 5A09457 Assistance with Respiratory Ventilation, 24-96 Consecutive Hours, Continuous Positive Airway Pressure (ICD-10-PCS; principal; 2022-10-07)
DX: I13.0 Hypertensive heart and chronic kidney disease with heart failure and stage 1 through stage 4 chronic kidney disease, or unspecified chronic kidney disease (principal); I50.33 Acute on chronic diastolic (congestive) heart failure; N17.0 Acute kidney failure with tubular necrosis; J96.21 Acute and chronic respiratory failure with hypoxia; J44.1 Chronic obstructive pulmonary disease with (acute) exacerbation; Z68.45 Body mass index [BMI] 70 or greater, adult; E11.22 Type 2 diabetes mellitus with diabetic chronic kidney disease; E66.01 Morbid (severe) obesity due to excess calories; G47.33 Obstructive sleep apnea (adult) (pediatric); Z20.822 Contact with and (suspected) exposure to COVID-19; E87.5 Hyperkalemia; E78.5 Hyperlipidemia, unspecified; E11.65 Type 2 diabetes mellitus with hyperglycemia; N18.30 Chronic kidney disease, stage 3 unspecified; Z82.5 Family history of asthma and other chronic lower respiratory diseases; R56.9 Unspecified convulsions; M79.89 Other specified soft tissue disorders; R79.89 Other specified abnormal findings of blood chemistry; Z83.3 Family history of diabetes mellitus; Z86.73 Personal history of transient ischemic attack (TIA), and cerebral infarction without residual deficits; Z88.0 Allergy status to penicillin; Z95.810 Presence of automatic (implantable) cardiac defibrillator
CPT/HCPCS: 36415; 36600; 71045; 71046; 76775; 80048; 80053; 81001; 82306; 82570; 82805; 82962; 83735; 83880; 83970; 84100; 84156; 84484; 85025; 85379; 85610; 85730; 87426; 93005; 93306; 94640; 94660; 96365; 96372; 96375; 99291; G0378; J1815

== ENCOUNTER 2024-07-05 15:03 | Observation (INO) | payer OTHER ==
[~2024-07-05] VITALS: Ht 167.6 cm; Wt 209.4 kg
[~2024-07-05 15:03] MED LIST changes: +HYDR-4902 PO; -HYDR50TA15 PO; +HYDR50TA47 PO; -METF500S PO; +METF500S3 PO
[2024-07-05 15:30] VITALS: PULSE 86; RESP 20; O2SAT 95
--- NOTE | 2024-07-05 15:52 | DVH ---
Procedure: XY CHEST PORTABLE 07/05/2024 03:18 PM Indication: sob. Comparison: CHEST PORTABLE on DOS: 10/08/22, CXRP on DOS: 10/08/22, CXR1 on DOS: 09/18/22 FINDINGS: Lines and Tubes: A multilead pacemaker /ACD is seen in the left chest wall with leads extending to th e cardiac chambers. Cardiomediastinal: The heart is moderately enlarged . Pulmonary vasculature is prominent. Lungs: Hazy opacities are noted throughout the bilateral lungs. The costophrenic angles are clear. No pneumothorax. Bones/soft tissues: No acute abnormality is noted. IMPRESSION: 1. Cardiomegaly and pulmonary venous congestion. 2. Hazy opacities throughout the bilateral lungs that could be artifactual related to summation of ti ssues and unobstructed station versus layering pleural effusion/or pulmonary opacities/ edema. Recomm end clinical and biochemical correlation.
[2024-07-05] MEDS: ALBUTEROL SULF 2.5 MG/0.5ML(0.5%) NEB SOLN NEB ONE ×2 (16:00→21:09)
[2024-07-05] MEDS: IPRATROPIUM BROM 0.5 MG/2.5ML INH SOL NEB ONE ×2 (16:00→21:08)
--- NOTE | 2024-07-05 16:10 | ED.PDOC ---
History of Present Illness HPI Comments 54 y/o M, with a Hx of asthma, CHF, COPD, CVA, DM, HLD, HTN, morbid obesity, seizures, and polysubstance use, is BIBA for c/o shortness of breath, today. Patient was found with low SpO2, while attending his appointment at urgent care for prescription refill of his Lasix medications that he ran-out of for over a week. Patient was found on scene by EMS staff with diminished lower lung sounds with a SpO2 of 86% RA and 94-96% w/baseline 2LPM O2 that he, usually, takes on a PRN basis. Patient denies having any chest pain, cough, dyspnea, fever, chills, or other associated symptoms or modifiers at this time. Chief Complaint: Shortness of Breath Time Seen by MD: 15:15 Primary Care Provider: UNKNOWN Reviewed Notes: Nurses Notes, Business Analytics Analyst Notes, Medications, Allergies Allergies: Coded Allergies: Penicillins (Verified Allergy, Unknown, 06/10/21) Home Meds Active Scripts Furosemide (Lasix) 80 Mg Tab, 80 TAB PO DAILY, #30 TAB 5 Refills Prov:KEZIA MICHAELS MD 10/09/22 Furosemide (Lasix) 20 Mg Tb, 1 TAB PO DAILY, #14 TAB 0 Refills Prov:MIGUEL MORGAN MD 09/18/22 Reported Medications Metformin HCl (Metformin Hydrochloride) 500 Mg/5 Ml Kenia, 500 MG PO BID, ML 11/17/21 Amiodarone Hcl (Amiodarone Hcl) 200 Mg Tab, 1 TAB PO DAILY, #90 TAB 1 Refill 06/11/21 Hydrochlorothiazide (Hydrochlorothiazide) 25 Mg Tab, 1 TAB PO DAILY, #30 TAB 5 Refills 06/11/21 Aspirin (Aspir-81) 81 Mg Tab, 1 TAB PO DAILY, #30 TAB 5 Refills 06/11/21 Levetiracetam (KEPPRA TABLET) 500 Mg Tb, 500 MG PO BID, TAB 06/11/21 Glyburide (Micronase) 5 Mg Tb, 2 TAB PO DAILY, #360 TAB 3 Refills 06/11/21 Atorvastatin Calcium (ATORVASTATIN CALCIUM) 20 Mg Tab, 1 TAB PO QPM, #30 TAB 5 Refills 06/11/21 Lisinopril (Lisinopril) 2.5 Mg Tab, 5 MG PO DAILY, TAB 06/11/21 Hydralazine Hcl (Hydralazine Hcl) 50 Mg Tab, 25 MG PO TID, TAB 06/11/21 Spironolactone (Spironolactone) 25 Mg Tab, 1 TAB PO BID, #90 TAB 1 Refill 06/11/21 Carvedilol (Carvedilol) 12.5 Mg Tab, 1 TAB PO BID, #180 TAB 1 Refill 06/11/21 Allopurinol (ZYLOPRIM TABLET) 100 Mg Tb, 1 TAB PO DAILY, #30 TAB 5 Refills 06/11/21 Epa Ethyl Nazanin (VASCEPA) 1 Gm Cap, 1 GM OR, CAP 06/11/21 Sitagliptin Phosphate (Januvia) 100 Mg Tab, 1 TAB PO DAILY, #30 TAB 5 Refills 06/11/21 Albuterol Sulfate (Albuterol Sulfate Hfa) 108 Mcg/Act Aer, 108 MCG IN, AER 06/11/21 Information Source: Patient, Emergency Med Personnel Mode of Arrival: EMS Severity: Moderate Timing: Hours Duration: Since onset Prehospital treatment: 12 Lead EKG, Systems Planner, Oxygen Past Medical History PAST MEDICAL HISTORY: Asthma, CHF, COPD, CVA, DM, High Lipids, HTN, Seizures Past Medical History (Other): morbid obesity Surgical History: Denies all surgeries Family History Family History: Reviewed,noncontributory to illness, No family hx of Liver corbin, No family hx of Lung corbin, Family hx of DM, Family hx of heart corbin, Family hx of HTN, Family hx of Kidney corbin Social History Smoker: Non-Smoker, Quit Greater Than 1 Year Alcohol: Denies ETOH Use, Sober Drugs: Denies Drug Use, Marijuana (former use ) Lives In: Home Constitutional: denies: chills, diaphoresis, fatigue, fever, malaise, sweats, weakness, others EENTM: denies: blurred vision, double vision, ear bleeding, ear discharge, ear drainage, ear pain, ear ringing, eye pain, eye redness, hearing loss, mouth pain, mouth swelling, nasal discharge, nose bleeding, nose congestion, nose pain, photophobia, tearing, throat pain, throat swelling, voice changes, others Respiratory: reports: shortness of breath; denies: cough, hemoptysis, orthopnea, SOB at rest, SOB with excertion, stridor, wheezing, others Cardiovascular: denies: chest pain, dizzy spells, diaphoresis, Dyspnea on exertion, edema, irregular heart beat, left arm pain, lightheadedness, palpitations, PND, syncope, others Gastrointestinal: denies: abdomen distended, abdominal pain, blood streaked bowels, constipated, diarrhea, dysphagia, difficulty swallowing, hematemesis, melena, nausea, poor appetite, poor fluid intake, rectal bleeding, rectal pain, vomiting, others Genitourinary: denies: burning, dysuria, flank pain, frequency, hematuria, incontinence, penile discharge, penile sore, pain, testicle pain, testicle swelling, urgency, others Neurological: denies: dizziness, fainting, headache, left sided numbness, left sided weakness, numbness, paresthesia, pre-existing deficit, right sided numbness, right sided weakness, seizure, speech problems, tingling, tremors, weakness, others Musculoskeletal: denies: back pain, gout, joint pain, joint swelling, muscle pain, muscle stiffness, neck pain, others Integumetry: denies: bruises, change in color, change in hair/nails, dryness, laceration, lesions, lumps, rash, wounds, others Allergic/Immunocompromised: denies: Difficulty Healing, Frequent Infections, Hives, Itching, others Hematologic/Lymphatic: denies: anemia, blood clots, easy bleeding, easy bruising, swollen glands, others Endocrine: denies: excessive hunger, excessive sweating, excessive thirst, excessive urination, flushing, intolerance to cold, intolerance to heat, unexplained weight gain, unexplained weight loss, others Psychiatric: denies: anxiety, bipolar disorder, depression, hopeless, panic disorder, schizophrenia, sleepless, suicidal, others All Other Systems: Reviewed and Negative Physical Exam General Appearance: Moderate Distress, Obese HEENT: Normal ENT Inspection, Pharynx Normal, TMs Normal Neck: Full Range of Motion, Non-Tender, Normal, Normal Inspection Respiratory: Other (Coarse breath sounds) Cardiovascular: No Edema, No JVD, No Murmur, No Gallop, Normal Peripheral Pulses, Regular Rate/Rhythm Breast Exam: Deferred Gastrointestinal: No Organomegaly, Non Tender, No Pulsatile Mass, Normal Bowel Sounds, Soft Genitalia: Deferred Pelvic: Deferred Rectal: Deferred Extremities: No calf tenderness, Normal capillary refill, Non-tender, Pedal e harrison, Swelling (Bilateral lower extremity) Musculoskeletal : Apperance: Normal Neurologic: Alert Cerebellar Function: NOT DONE Reflexes: NOT DONE Skin: Normal Color Peripheral Pulses: 3+ Radial (R), 3+ Radial (L) Lymphatic: No Adenopathy Was a procedure done? Was a procedure done?: No Differential Dx Considerations may include: COPD exacerbation, CHF exacerbation, bronchitis, PNA, Covid19, URI X-Ray, Labs, Meds, VS Vital Signs Date Time Temp Pulse Resp B/P (MAP) Pulse Ox O2 Delivery O2 Flow Rate FiO2 07/05/24 16:19 163/85 07/05/24 16:00 26 94 Nasal Cannula* 2 28 07/05/24 15:59 86 07/05/24 15:30 86 20 95 Nasal Cannula* 2 28 07/05/24 15:30 97.5 86 20 163/85 (111) 95 97.5 Lab Test 07/05/24 16:00 Range/Units White Blood Count 5.4 4.4-10.8 10^3/uL Red Blood Count 5.35 4.5-5.90 10^6/uL Hemoglobin 15.2 13.5-17.5 g/dL Hematocrit 46.0 41.0-53.0 % Mean Corpuscular Volume 86.0 80.0-100.0 fL Mean Corpuscular Hemoglobin 28.4 28.0-32.0 pg Mean Corpuscular Hemoglobin Concent 33.0 32.0-36.0 g/dL Red Cell Distribution Width 16.7 H 11.8-14.3 % Platelet Count 167 140-450 10^3/uL Mean Platelet Volume 7.9 6.9-10.8 fL Neutrophils (%) (Auto) 66.7 37.0-80.0 % Lymphocytes (%) (Auto) 24.2 10.0-50.0 % Monocytes (%) (Auto) 6.4 0.0-12.0 % Eosinophils (%) (Auto) 1.8 0.0-7.0 % Basophils (%) (Auto) 0.9 0.0-2.0 % Neutrophils # (Auto) 3.6 1.6-8.6 10 ^3/uL Lymphocytes # (Auto) 1.3 0.4-5.4 10 ^3/uL Monocytes # (Auto) 0.3 0-1.3 10 ^3/uL Eosinophils # (Auto) 0.1 0-0.8 10 ^3/uL Basophils # (Auto) 0 0-0.2 10 ^3/uL Nucleated Red Blood Cells 0.4 % Sodium Level Pending Potassium Level Pending Chloride Level Pending Carbon Dioxide Level Pending Anion Gap Pending Blood Urea Nitrogen Pending Creatinine Pending Glomerular Filtration Rate Calc Pending BUN/Creatinine Ratio Pending Serum Glucose Pending Calcium Level Pending Troponin I High Sensitivity Pending B-Type Natriuretic Peptide Pending Current Medications Medications (Trade) Dose Ordered Sig/Ju Route Start Time Stop Time Status Last Admin Furosemide (Lasix Injection) 40 mg ONCE ONCE IV 07/05/24 15:45 07/05/24 15:47 DC 07/05/24 16:19 Methylprednisolone Sodium Succinate (Solu Medrol) 125 mg ONCE ONCE IV 07/05/24 15:45 07/05/24 15:47 DC 07/05/24 16:30 Albuterol (Ventolin Medneb) 5 mg ONCE ONCE NEB 07/05/24 15:45 07/05/24 15:47 DC 07/05/24 16:00 Ipratropium [place] (Atrovent Medneb) 0.5 mg ONCE ONCE NEB 07/05/24 15:45 07/05/24 15:47 DC 07/05/24 16:00 [place] [id number] Ph: [phone] DIAGNOSTIC IMAGING Diagnostic Imaging Report : [id number] Signed PATIENT: SANDY SANCHEZ ACCT: [id number] UNIT: [id number] : 1970 LOC: ER ROOM / BED: / AGE / SEX: 54 / M ADM STATUS: REG ER SERVICE 1510 ORDERING PHYSICIAN: ELISHA HOFFMANN MD PROCEDURE(s): CXRP - CHEST PORTABLE REASON: sob ORDER NUMBER(s): [id number], ACCESSION NUMBER(s): [id number] Procedure: XY CHEST PORTABLE 07/05/2024 03:18 PM Indication: sob. Comparison: CHEST PORTABLE on DOS: 10/08/22, CXRP on DOS: 2/15/23, CXR1 on DOS: 09/18/22 FINDINGS: Lines and Tubes: A multilead pacemaker /ACD is seen in the left chest wall with leads extending to the cardiac chambers. Cardiomediastinal: The heart is moderately enlarged . Pulmonary vasculature is prominent. Lungs: Hazy opacities are noted throughout the bilateral lungs. The costophrenic angles are clear. No pneumothorax. Bones/soft tissues: No acute abnormality is noted. IMPRESSION: 1. Cardiomegaly and pulmonary venous congestion. 2. Hazy opacities throughout the bilateral lungs that could be artifactual related to summation of tissues and unobstructed station versus layering pleural effusion/or pulmonary opacities/ edema. Recommend clinical and biochemical correlation. ATED BY: CONSUELO CARDOZA MD DICTATED DATE/TIME: 07/05/241549 SIGNED BY: CONSUELO CARDOZA MD SIGNED DATE/TIME: 07/05/241549 CC: Patient alert. Complaining of shortness a breath. Is not using his oxygen. Placed on oxygen. Doing much better after being on oxygen. Chest x-ray reviewed does show CHF. Possible pneumonia. Establish intravenous access. Was given Levaquin. Was given steroid. Was given breathing treatment. Was given Lasix. WBC within normal limits. Hemoglobin within normal limits. Reviewed his previous visit. Explained to the patient. Continue cardiac monitoring. EKG reviewed does not show any acute changes. Will be followed by [facility] physician. Time of 1ST Reevaluation: 15:45 Reevaluation 1ST: Improved Time of 2ND Reevaluation: 17:08 Reevaluation 2ND: Improved Patient Education/Counseling: Diagnosis, Treatment Family Education/Counseling: No Family Present Departure 1 Departure Time of Disposition: 16:53 Impression: Primary Impression: Acute respiratory failure Qualified Codes: J96.01 - Acute respiratory failure with hypoxia Additional Impressions: COPD exacerbation CHF (congestive heart failure) Qualified Codes: I50.43 - Acute on chronic combined systolic (congestive) and diastolic (congestive) heart failure Pneumonia Qualified Codes: J18.9 - Pneumonia, unspecified organism Disposition: ADMITTED INPATIENT Admit to: Med Surg Condition: Guarded Critical Care Note Critical Care Time?: Yes (90 min-critical care time only) Stability Stability form required: No Heart Score Heart Score: Heart Score Response (Comments) Value History Moderate Suspicious 1 EKG Normal 0 Age 45-64 1 Risk Factors 1 or 2 risk factors 1 Troponin Normal limit 0 Total 3 I personally scribed for ELISHA HOFFMANN MD ([email or web address]) on 07/05/24 at 16:10. Electronically submitted by Jamarcus Jones [email or web address]). ELISHA HOFFMANN MD Jul 05, 2024 16:10
[2024-07-05] MEDS: FUROSEMIDE 40 MG/4 ML VIAL IV ONE ×2 (16:19→18:32)
[2024-07-05] MEDS: methylPREDNISolone SOD SUCC 125 MG/2 ML VL IV ONE (16:30)
[2024-07-05 16:40] LABS: Basophils # (auto) 0 10 ^3/uL (0-0.2); Basophils % (auto) 0.9 % (0.0-2.0); Eosinophils # (auto) 0.1 10 ^3/uL (0-0.8); Eosinophils % (auto) 1.8 % (0.0-7.0); Hemoglobin 15.2 g/dL (13.5-17.5); Lymphocytes # (auto) 1.3 10 ^3/uL (0.4-5.4); Lymphocytes % (auto) 24.2 % (10.0-50.0); Mean Corpuscular Hemoglobin 28.4 pg (28.0-32.0); Monocytes # (auto) 0.3 10 ^3/uL (0-1.3); Monocytes % (auto) 6.4 % (0.0-12.0); Neutrophils # (auto) 3.6 10 ^3/uL (1.6-8.6); Neutrophils % (auto) 66.7 % (37.0-80.0); Nucleated Red Blood Cells % 0.4 %; Platelet Count (auto) 167 10^3/uL (140-450); Red Blood Cells 5.35 10^6/uL (4.5-5.90); Red Cell Distribution Width 16.7 % (11.8-14.3); White Blood Cell 5.4 10^3/uL (4.4-10.8)
[2024-07-05 17:31] LABS: Base Excess -2.2 mmol/L (-2.0-3.0)
[2024-07-05] MEDS: levoFLOXacin 750MG 150 ML IV ONE (17:33)
[2024-07-05 17:35] LABS: Chloride 107 mmol/L (98-107); Potassium 4.6 mmol/L (3.5-5.1); Sodium 139 mmol/L (136-145)
[2024-07-05 17:36] LABS: Anion Gap 6 (5-15); Carbon Dioxide 26 mmol/L (20-31)
[2024-07-05 17:37] LABS: Calcium 8.9 mg/dL (8.7-10.4)
[2024-07-05 17:41] LABS: Blood Urea Nitrogen 11 mg/dL (9-23); Glucose 323 mg/dL (74-106)
[2024-07-05 18:07] LABS: Urine Bacteria None Seen /hpf (None Seen); Urine WBC None Seen /hpf (0 - 3)
[2024-07-05 18:24] LABS: Urine Blood Negative /uL (Negative); Urine Clarity Clear (Clear); Urine Color Colorless (Yellow); Urine Protein, UAD Negative (Negative); Urine Specific Gravity 1.005 (1.001-1.035); Urine Urobilinogen Normal (Negative)
[2024-07-05] MEDS ORDERED: FURO1TAB32 PO (18:24)
--- NOTE | 2024-07-05 20:25 | ECG ---
[facility] Test Date: 2024-07-05 Test Time: 15:59:39 Pat Name: SANDY SANCHEZ Department: ER Room: 0292T Gender: M Interdisciplinary Professor: KLARISSA : 1970 Requested By: ELISHA HOFFMANN Order Number: [id number] Reading MD: Royal Rutherford Measurements Intervals [place] Rate: 86 P: 76 MN: 163 QRS: 101 QRSD: 99 T: 59 QT: 410 QTc: 491 Interpretive Statements Sinus rhythm Lateral infarct, old Baseline wander in lead(s) I,II,III,aVL,aVF,V3 Electronically Signed On 07-14-2024 12:56:45 PST by Royal Rutherford Please click the below link to view image of tracing.
[2024-07-05] MEDS: IPRATROPIUM BROM 0.5 MG/2.5ML INH SOL ONE (21:09)
[2024-07-05] MEDS: ALBUTEROL SULF 2.5 MG/0.5ML(0.5%) NEB SOLN ONE (21:09)
[2024-07-05] MEDS ORDERED: DEXTROSE (50%) 50ML SYRG IV PRN (22:00)
[2024-07-05] MEDS ORDERED: ONDANSETRON HCL 4 MG/2 ML VIAL IV PRN (22:00)
[2024-07-05] MEDS ORDERED: NITROGLYCERIN 0.4 MG SL TAB SL PRN (22:00)
[2024-07-05] MEDS ORDERED: MORPHINE SULFATE INJ 2 MG/ml SYRG IV PRN (22:00)
[2024-07-05 22:14] VITALS: BP 138/72; PULSE 82; RESP 18; TEMP 97.5; O2SAT 91
[2024-07-05] MEDS ORDERED: metOLazone 5 MG TAB PO ONE (22:15)
[2024-07-05] MEDS: CARVEDILOL 12.5 MG TAB PO SCH (22:31)
[2024-07-05] MEDS: FUROSEMIDE 40 MG/4 ML VIAL IV SCH (22:32)
[2024-07-05] MEDS: methylPREDNISolone SOD SUCC 125 MG/2 ML VL IV SCH (22:32)
[2024-07-05 22:50] VITALS: PULSE 91; RESP 13; O2SAT 90
[2024-07-05] MEDS: IPRATROPIUM BROM 0.5 MG/2.5ML INH SOL NEB SCH (22:50)
[2024-07-05] MEDS: ALBUTEROL SULF 2.5 MG/0.5ML(0.5%) NEB SOLN NEB SCH (22:50)
[2024-07-05 22:59] VITALS: PULSE 89; RESP 13; O2SAT 94
--- NOTE | 2024-07-05 23:15 | DVHINCON2 ---
Date of service: Jul 05, 2024 Referring Physician Kwaku Reason for Consultation CHF exacerbation History of Present Illness This is a 54 year old male with a PMH of asthma, CHF, COPD, CVA, DM, HLD, HTN, severe morbid obesity, seizures, and polysubstance use who was brought in by EMS with c/o shortness of breath today. The patient was found with low SpO2, while attending his appointment at urgent care for prescription refill of his Lasix medications that he ran-out of for over a week. Pox 80s but does not use his home oxygen. WBC 5.4, Hgb 15.2, Plt 167. BMP is WNL. Trops are negative. Chest x-ray shows cardiomegaly with pulmonary vascular congestion, possible pleural effusion. EKG: SR. Patient was admitted to the hospital. I am asked to consult on this patient. Family History: Asthma G8 MOTHER G8 BROTHER G8 SISTER Diabetes mellitus G8 MOTHER Other blood disorders G8 MOTHER Allergies: Coded Allergies: Penicillins (Verified Allergy, Unknown, 06/10/21) Home Meds Active Scripts Furosemide (Lasix) 80 Mg Tab, 80 TAB PO DAILY, #90 TAB 1 Refill Prov:CONSUELO HAN MD 07/05/24 Furosemide (Lasix) 20 Mg Tb, 1 TAB PO DAILY, #14 TAB 0 Refills Prov:MIGUEL MORGAN MD 09/18/22 Reported Medications Metformin HCl (Metformin Hydrochloride) 500 Mg/5 Ml Kenia, 500 MG PO BID, ML 11/17/21 Amiodarone Hcl (Amiodarone Hcl) 200 Mg Tab, 1 TAB PO DAILY, #90 TAB 1 Refill 06/11/21 Hydrochlorothiazide (Hydrochlorothiazide) 25 Mg Tab, 1 TAB PO DAILY, #30 TAB 5 Refills 06/11/21 Aspirin (Aspir-81) 81 Mg Tab, 1 TAB PO DAILY, #30 TAB 5 Refills 06/11/21 Levetiracetam (KEPPRA TABLET) 500 Mg Tb, 500 MG PO BID, TAB 06/11/21 Glyburide (Micronase) 5 Mg Tb, 2 TAB PO DAILY, #360 TAB 3 Refills 06/11/21 Atorvastatin Calcium (ATORVASTATIN CALCIUM) 20 Mg Tab, 1 TAB PO QPM, #30 TAB 5 Refills 06/11/21 Lisinopril (Lisinopril) 2.5 Mg Tab, 5 MG PO DAILY, TAB 06/11/21 Hydralazine Hcl (Hydralazine Hcl) 50 Mg Tab, 25 MG PO TID, TAB 06/11/21 Spironolactone (Spironolactone) 25 Mg Tab, 1 TAB PO BID, #90 TAB 1 Refill 06/11/21 Carvedilol (Carvedilol) 12.5 Mg Tab, 1 TAB PO BID, #180 TAB 1 Refill 06/11/21 Allopurinol (ZYLOPRIM TABLET) 100 Mg Tb, 1 TAB PO DAILY, #30 TAB 5 Refills 06/11/21 Epa Ethyl Nazanin (VASCEPA) 1 Gm Cap, 1 GM OR, CAP 06/11/21 Sitagliptin Phosphate (Januvia) 100 Mg Tab, 1 TAB PO DAILY, #30 TAB 5 Refills 06/11/21 Albuterol Sulfate (Albuterol Sulfate Hfa) 108 Mcg/Act Aer, 108 MCG IN, AER 06/11/21 Current Medications Current Medications Medications (Trade) Dose Ordered Sig/Ju Route PRN Reason Start Time Stop Time Status Last Admin Diagnostic Test (Pha) (Accu-Chek Comfort Curve T) 1 strip Q6HR 07/06/24 00:00 Insulin Human Regular (InsuLIN R) Q6HR SC 07/06/24 00:00 Dextrose 50 ml UD PRN IV Blood Sugar LESS THAN 60 07/05/24 22:00 Acetaminophen/ Hydrocodone Bitart ([place]ing[place] 5/325MG Tab) 1 tab Q4HP PRN PO MODERATE PAIN (4-6 PAIN SCALE) 07/05/24 22:00 Ondansetron HCl (Zofran) 4 mg Q4HP PRN IV NAUSEA / VOMITING 07/05/24 22:00 Enoxaparin Sodium (Lovenox) 40 mg DAILY SC 07/06/24 10:00 Nitroglycerin (Ntrostat Sublingual) 0.4 mg Q5MINP PRN SL FOR CHEST PAIN 07/05/24 22:00 Morphine Sulfate 2 mg Q30M PRN IV FOR CHEST PAIN 07/05/24 22:00 Albuterol (Ventolin Medneb) 2.5 mg Q4HR NEB 07/05/24 22:00 07/05/24 22:50 Ipratropium [place] (Atrovent Medneb) 0.5 mg Q4HR NEB 07/05/24 22:00 07/05/24 22:50 Methylprednisolone Sodium Succinate (Solu Medrol) 80 mg Q8HR IV 07/05/24 22:00 07/05/24 22:32 Furosemide (Lasix Injection) 40 mg TID IV 07/05/24 22:00 07/05/24 22:32 Hydralazine HCl (Apresoline Injection) 10 mg Q6HP PRN IV SBP>150 07/05/24 22:00 Carvedilol (Coreg Tablet) 12.5 mg Q12HR PO 07/05/24 22:00 07/05/24 22:31 Lisinopril (Zestril Tablet) 5 mg DAILY PO 07/06/24 10:00 Levetiracetam (Keppra Tablet) 500 mg TID PO 07/06/24 06:00 Review of Systems Constitutional: denies: chills, diaphoresis, fatigue, fever, malaise, sweats, weakness, others EENTM: denies: blurred vision, double vision, ear bleeding, ear discharge, ear drainage, ear pain, ear ringing, eye pain, eye redness, hearing loss, mouth pain, mouth swelling, nasal discharge, nose bleeding, nose congestion, nose pain, photophobia, tearing, throat pain, throat swelling, voice changes, others Respiratory: reports: shortness of breath; denies: cough, hemoptysis, orthopnea, SOB at rest, SOB with excertion, stridor, wheezing, others Cardiovascular: denies: chest pain, dizzy spells, diaphoresis, Dyspnea on exertion, edema, irregular heart beat, left arm pain, lightheadedness, palpitations, PND, syncope, others Gastrointestinal: denies: abdomen distended, abdominal pain, blood streaked bowels, constipated, diarrhea, dysphagia, difficulty swallowing, hematemesis, melena, nausea, poor appetite, poor fluid intake, rectal bleeding, rectal pain, vomiting, others Genitourinary: denies: burning, dysuria, flank pain, frequency, hematuria, incontinence, penile discharge, penile sore, pain, testicle pain, testicle swelling, urgency, others Neurological: denies: dizziness, fainting, headache, left sided numbness, left sided weakness, numbness, paresthesia, pre-existing deficit, right sided numbness, right sided weakness, seizure, speech problems, tingling, tremors, weakness, others Musculoskeletal: denies: back pain, gout, joint pain, joint swelling, muscle pain, muscle stiffness, neck pain, others Integumetry: denies: bruises, change in color, change in hair/nails, dryness, laceration, lesions, lumps, rash, wounds, others Allergic/Immunocompromised: denies: Difficulty Healing, Frequent Infections, Hives, Itching, others Hematologic/Lymphatic: denies: anemia, blood clots, easy bleeding, easy bruising, swollen glands, others Endocrine: denies: excessive hunger, excessive sweating, excessive thirst, excessive urination, flushing, intolerance to cold, intolerance to heat, unexplained weight gain, unexplained weight loss, others Psychiatric: denies: anxiety, bipolar disorder, depression, hopeless, panic disorder, schizophrenia, sleepless, suicidal, others All Other Systems: Reviewed and Negativ Vital Signs Vital Signs Date Time Temp Pulse Resp B/P (MAP) Pulse Ox O2 Delivery O2 Flow Rate FiO2 07/05/24 22:59 89 13 94 07/05/24 22:50 Nasal Cannula 3.0 07/05/24 22:50 32 07/05/24 22:32 162/81 07/05/24 22:14 97.5 97.5 Physical Exam GENERAL: Awake, alert, oriented. Morbidly obese. LUNGS: Coarse breath sounds. CARDIOVASCULAR: Heart sounds are good. ABDOMEN: Soft. Labs/Diagnostic Data Labs Test 07/05/24 18:06 07/05/24 17:16 07/05/24 16:00 Range/Units Urine Color Colorless Yellow Urine Clarity Clear Clear Urine pH 5.0 5.0-9.0 Urine Specific [place] 1.005 1.001-1.035 Urine Protein Negative Negative Urine Ketones Negative Negative Urine Blood Negative Negative /uL Urine Nitrite Negative Negative Urine Bilirubin Negative Negative Urine Urobilinogen Normal Negative mg/dL Urine Leukocyte Esterase Negative Negative /uL Urine RBC <1 0 - 3 /hpf Urine WBC None seen 0 - 3 /hpf Urine Squamous Epithelial Cells None seen <5 /hpf Urine Bacteria None seen None Seen /hpf Urine Glucose 2+ H Normal mg/dL Blood Gas Specimen Type Arterial Blood Gas Sample Site Left radial Blood Gas Patient Temperature 37.0 Arterial Blood Date Drawn Arterial Blood pH 7.340 L 7.350-7.450 Arterial Blood Partial Pressure CO2 45.2 35.0-48.0 mmHg Arterial Blood Partial Pressure O2 67.8 L 83.0-108.0 mmHg Arterial Blood HCO3 23.8 21.0-28.0 mmol/L Arterial Blood Oxygen Saturation 92.7 L 94.0-98.0 % Arterial Blood Base Excess -2.2 L -2.0-3.0 mmol/L Arterial Blood Oxyhemoglobin 90.7 L 94.0-98.0 % Arterial Blood Carboxyhemoglobin 1.5 0.5-1.5 % Arterial Blood Methemoglobin 0.7 0.0-1.5 % Tab Test Yes Blood Gas Total Hemoglobin 16.70 13.5-17.5 g/dL Blood Gas Liter Flow 2.00 Blood Gas Modality Nasal cannula FiO2 % 28.0 Specimen Drawn By Rosey barrios White Blood Count 5.4 4.4-10.8 10^3/uL Red Blood Count 5.35 4.5-5.90 10^6/uL Hemoglobin 15.2 13.5-17.5 g/dL Hematocrit 46.0 41.0-53.0 % Mean Corpuscular Volume 86.0 80.0-100.0 fL Mean Corpuscular Hemoglobin 28.4 28.0-32.0 pg Mean Corpuscular Hemoglobin Concent 33.0 32.0-36.0 g/dL Red Cell Distribution Width 16.7 H 11.8-14.3 % Platelet Count 167 140-450 10^3/uL Mean Platelet Volume 7.9 6.9-10.8 fL Neutrophils (%) (Auto) 66.7 37.0-80.0 % Lymphocytes (%) (Auto) 24.2 10.0-50.0 % Monocytes (%) (Auto) 6.4 0.0-12.0 % Eosinophils (%) (Auto) 1.8 0.0-7.0 % Basophils (%) (Auto) 0.9 0.0-2.0 % Neutrophils # (Auto) 3.6 1.6-8.6 10 ^3/uL Lymphocytes # (Auto) 1.3 0.4-5.4 10 ^3/uL Monocytes # (Auto) 0.3 0-1.3 10 ^3/uL Eosinophils # (Auto) 0.1 0-0.8 10 ^3/uL Basophils # (Auto) 0 0-0.2 10 ^3/uL Nucleated Red Blood Cells 0.4 % Sodium Level 139 136-145 mmol/L Potassium Level 4.6 3.5-5.1 mmol/L Chloride Level 107 98-107 mmol/L Carbon Dioxide Level 26 20-31 mmol/L Anion Gap 6 5-15 Blood Urea Nitrogen 11 9-23 mg/dL Creatinine 1.10 0.700-1.30 mg/dL Glomerular Filtration Rate Calc 80 >90 mL/min BUN/Creatinine Ratio 10.0 10.0-20.0 Serum Glucose 323 H 74-106 mg/dL Calcium Level 8.9 8.7-10.4 mg/dL Troponin I High Sensitivity 18 </=54 ng/L B-Type Natriuretic Peptide 88.07 0-100 pg/mL Assessment Acute CHF exacerbation. Acute on chronic respiratory failure COPD exacerbation. Asthma. DM. HTN. Seizures. Plan/Recommendation I agree with your ongoing assessment and care of plan. Echocardiogram. Morphine and Wingina for pain management. Coreg, Lisinopril. DVT prophylactics. Diuretics with Lasix. Additional plan as per the hospital course. A total of 45 minutes was spent reviewing the patient record, examining the patient, making a diagnostic and therapeutic plan, discussing this plan with medical personnel, following up on diagnostic studies and following the patient for clinical stability excluding any and all procedures. At least 50% of this time was spent in direct, [id number] contact. Plan discussed with: Patient CAROLIN ANG MD Jul 05, 2024 23:15
[2024-07-05 23:32] VITALS: PULSE 84; RESP 21; O2SAT 90
[2024-07-06] VITALS (18 sets, daily range): BP systolic 112–158; BP diastolic 60–90; PULSE 81–97; RESP 18–21; TEMP 36.6; O2SAT 92–98
[2024-07-06] MEDS: ACCU-CHEK COMFORT CURVE STRIP VI SCH (00:07)
[2024-07-06] MEDS: InsuLIN REG 1unit/0.01ml Soln (100units/ml) SC SCH (00:10)
--- NOTE | 2024-07-06 02:34 | DVHHP ---
ADMIT DATE: 07/05/2024 CHIEF COMPLAINT: Coming for shortness of breath. HISTORY OF PRESENT ILLNESS: This is a 54-year-old -Welsh male with significant past medical history for congestive heart failure, chronic respiratory failure, on home intermittent oxygen, COPD, diabetes mellitus type 2, essential hypertension, hyperlipidemia, epilepsy, severe morbid obesity, who presents to Emergency Room with chief complaint of shortness of breath. The patient apparently was seen by his PCP office of Dr. Grant. The patient was found to be satting in the mid 80s on room air and the patient was transitioned here to the ER. The patient says he ran out of LasLyfepoints about 7 days ago has noticed that he has got some swelling in his lower legs as well as swelling around his lower portions of his abdominal pannus. The patient otherwise has not noticed any new onset of cough or phlegm, any fevers or chills. Denies any chest pain symptoms, any bloody or tarry stools, any urinary frequency, urgency or burning sensation and has had loose stools for the last 2 days. PAST MEDICAL HISTORY: CHF, chronic respiratory failure, COPD, diabetes mellitus type 2, essential hypertension, hyperlipidemia, severe morbid obesity, epilepsy. PAST SURGICAL HISTORY: Has a defibrillator implantation in 2013. SOCIAL HISTORY: No tobacco, quit in 2017. No alcohol. No illicit drugs. MEDICATIONS AT HOME: Per medical reconciliation. MEDICATION ALLERGIES: PENICILLIN. REVIEW OF SYSTEMS: A 10-point review of systems was covered with the patient and was negative with exception to what was present in history of present illness. PHYSICAL EXAMINATION: VITAL SIGNS: Temperature 97.5, pulse rate of 86, respiratory rate of 20, blood pressure 160/85, pulse 95% on 3 liters nasal cannula oxygen. GENERAL: Seems to be alert and oriented x 4, not in acute distress -Welsh male, sitting up on his bed. HEENT: Normocephalic, atraumatic. Extraocular muscles were intact. Pupils seem to be equally round, react to light and accommodation. Mucous membranes look moist. CARDIOVASCULAR: S1, S2 positive, regular rate and rhythm. No rubs, gallops or murmurs. LUNGS: Seems to be clear to auscultation bilaterally. No wheeze, rhonchi or rales. ABDOMEN: Seems to be obese, pitting edema and large lower portions of his pannus is palpable. Bowel sounds are present. No guarding, no rebound. EXTREMITIES: Lower extremities, 1+ pitting edema extending to the mid shins. No clubbing, no cyanosis. NEUROLOGIC: No focal deficits. Cranial nerves testing 2-12 overall seems to be intact. LABORATORY WORKUP: Shows a white count 5.4, H of H of 15.2 and 46, platelet count of 167,000. Sodium 139, potassium 4.6, carbon dioxide of 26, BUN of 11, creatinine 1.11 with a glucose of 323, and calcium 8.9. Troponins of 18. BNP of 88.07. Parathyroid hormone of 49. Urinalysis was negative for nitrites, negative for leukocyte esterase. Blood gas was completed, shows a pH of 7.340, pCO2 of 45.2, pO2 of 67.8, bicarbonate 23.8. O2 saturations of 92.7 and this is on 2 liters nasal cannula oxygen. IMAGING: Chest x-ray shows cardiomegaly and pulmonary venous congestion, hazy opacity throughout the bilateral lungs that could be artifactual related to inflammation of tissues versus layering pleural effusion or pulmonary opacities/edema. Recommend clinical and biochemical correlation. DIAGNOSES: * Acute congestive heart failure exacerbation. * Possible chronic obstructive pulmonary disease exacerbation. * Chronic respiratory failure. SECONDARY DIAGNOSES: Diabetes mellitus type 2, epilepsy, severe morbid obesity, essential hypertension. PLAN: The patient will be admitted to medical telemetry floor for continuous cardiopulmonary monitoring under observation status. The patient will have consultation with Dr. Imelda Gregorio, Cardiology. Echocardiogram to be completed in the morning. The patient to be placed on Lasix 40 mg IV 3 times a day. Strict I's and O's to be implemented. The patient to be placed on a low sodium, cardiac, low fat, carbohydrate controlled diet with Accu-Cheks q. 6 hours with moderate dose sliding scale regular insulin. The patient additionally be resumed back on his Keppra medication 500 mg 3 times a day for history of seizures. The patient otherwise will also be given med neb treatments, albuterol, ipratropium q. 4 hours around the clock. The patient to have Solu-Medrol 80 mg IV q. 8 hours and med neb treatments every 4 hours. The patient's blood gas did not show any significant CO2 retention. The patient's pCO2 levels were at 45.2 and likely to be his baseline; however, the patient does have a slight acidosis at 7.34 pH. Given this, patient has been empirically started on med neb treatments and steroids to treat possibility of underlying COPD exacerbation. The patient's saturations do improve from the low 90s to upper 90s after breathing treatments and the patient overall feels improved as well. Furthermore, the patient will be resumed back on his home blood pressure medications lisinopril 5 mg once a day, Coreg 12.5 p.o. twice a day. The patient to have morphine 2 mg IV q. 30 minutes as needed for chest pain, Zofran 4 mg IV p.r.n. for nausea and vomiting. The patient to have Zofran 4 mg IV p.r.n. Q4 hours for nausea and vomiting. Lovenox 40 mg subcutaneous daily for DVT prophylaxis. The patient is a full code. Further recommendations will depend on the patient's hospital progression. Adrian Garcia MD LM/RADHA/WOJCIECH/TEJ TID: [id number] RECEIPT: [id number] MTDD
[2024-07-06] MEDS: levETIRAcetam 500 MG TAB PO SCH (06:45)
[2024-07-06 07:37] LABS: Basophils # (auto) 0 10 ^3/uL (0-0.2); Basophils % (auto) 0.2 % (0.0-2.0); Eosinophils # (auto) 0 10 ^3/uL (0-0.8); Hematocrit 47.8 % (41.0-53.0); Hemoglobin 15.9 g/dL (13.5-17.5); Lymphocytes # (auto) 0.8 10 ^3/uL (0.4-5.4); Lymphocytes % (auto) 10.5 % (10.0-50.0); Mean Corpuscular Hemoglobin 28.4 pg (28.0-32.0); Mean Corpuscular Hgb Conc. 33.2 g/dL (32.0-36.0); Mean Corpuscular Volume 85.6 fL (80.0-100.0); Monocytes # (auto) 0 10 ^3/uL (0-1.3); Monocytes % (auto) 0.6 % (0.0-12.0); Neutrophils # (auto) 6.6 10 ^3/uL (1.6-8.6); Neutrophils % (auto) 88.7 % (37.0-80.0); Nucleated Red Blood Cells % 0.2 %; Platelet Count (auto) 183 10^3/uL (140-450); Red Blood Cells 5.59 10^6/uL (4.5-5.90); Red Cell Distribution Width 16.9 % (11.8-14.3); White Blood Cell 7.5 10^3/uL (4.4-10.8)
[2024-07-06 07:38] LABS: Chloride 103 mmol/L (98-107); Potassium 4.5 mmol/L (3.5-5.1); Sodium 138 mmol/L (136-145)
[2024-07-06 07:39] LABS: Anion Gap 9 (5-15); Calcium 9.3 mg/dL (8.7-10.4); Carbon Dioxide 26 mmol/L (20-31)
[2024-07-06 07:44] LABS: BUN/Creatinine Ratio 12.5 (10.0-20.0); Blood Urea Nitrogen 15 mg/dL (9-23); Glucose 332 mg/dL (74-106)
[2024-07-06] MEDS: ENOXAPARIN SOD 40 MG/0.4 ML SYRINGE SC SCH (09:05)
[2024-07-06] MEDS: LISINOPRIL 5 MG TAB PO SCH (09:06)
[2024-07-06] MEDS ORDERED: DAPA1TAB4 PO (10:25)
[2024-07-06] MEDS ORDERED: LISI10TA34 PO (10:25)
[2024-07-06] MEDS ORDERED: ATOR20TA PO (10:25)
[2024-07-06] MEDS ORDERED: LISI-275 PO (10:25)
[2024-07-06] MEDS ORDERED: RIVA10TA PO (10:25)
--- NOTE | 2024-07-06 10:39 | DVHDS2 ---
Discharge Summary Date of Admission Jul 05, 2024 at 21:50 Date of Discharge: Jul 06, 2024 Admitting Diagnosis Acute CHF exacerbation, Chronic Respiratory Failure Wounds: None Labs/Diagnostic Data: Laboratory Results Test 07/06/24 06:22 07/06/24 06:01 07/05/24 18:06 07/05/24 17:16 White Blood Count 7.5 10^3/uL (4.4-10.8) Red Blood Count 5.59 10^6/uL (4.5-5.90) Hemoglobin 15.9 g/dL (13.5-17.5) Hematocrit 47.8 % (41.0-53.0) Mean Corpuscular Volume 85.6 fL (80.0-100.0) Mean Corpuscular Hemoglobin 28.4 pg (28.0-32.0) Mean Corpuscular Hemoglobin Concent 33.2 g/dL (32.0-36.0) Red Cell Distribution Width 16.9 % (11.8-14.3) Platelet Count 183 10^3/uL (140-450) Mean Platelet Volume 8.1 fL (6.9-10.8) Neutrophils (%) (Auto) 88.7 % (37.0-80.0) Lymphocytes (%) (Auto) 10.5 % (10.0-50.0) Monocytes (%) (Auto) 0.6 % (0.0-12.0) Eosinophils (%) (Auto) 0.0 % (0.0-7.0) Basophils (%) (Auto) 0.2 % (0.0-2.0) Neutrophils # (Auto) 6.6 10 ^3/uL (1.6-8.6) Lymphocytes # (Auto) 0.8 10 ^3/uL (0.4-5.4) Monocytes # (Auto) 0 10 ^3/uL (0-1.3) Eosinophils # (Auto) 0 10 ^3/uL (0-0.8) Basophils # (Auto) 0 10 ^3/uL (0-0.2) Nucleated Red Blood Cells 0.2 % Sodium Level 138 mmol/L (136-145) Potassium Level 4.5 mmol/L (3.5-5.1) Chloride Level 103 mmol/L (98-107) Carbon Dioxide Level 26 mmol/L (20-31) Anion Gap 9 (5-15) Blood Urea Nitrogen 15 mg/dL (9-23) Creatinine 1.20 mg/dL (0.700-1.30) Glomerular Filtration Rate Calc 72 mL/min (>90) BUN/Creatinine Ratio 12.5 (10.0-20.0) Serum Glucose 332 mg/dL (74-106) Calcium Level 9.3 mg/dL (8.7-10.4) POC Glucose 328 mg/dl (70-106) Urine Color Colorless (Yellow) Urine Clarity Clear (Clear) Urine pH 5.0 (5.0-9.0) Urine Specific [place] 1.005 (1.001-1.035) Urine Protein Negative (Negative) Urine Ketones Negative (Negative) Urine Blood Negative /uL (Negative) Urine Nitrite Negative (Negative) Urine Bilirubin Negative (Negative) Urine Urobilinogen Normal mg/dL (Negative) Urine Leukocyte Esterase Negative /uL (Negative) Urine RBC <1 /hpf (0 - 3) Urine WBC None seen /hpf (0 - 3) Urine Squamous Epithelial Cells None seen /hpf (<5) Urine Bacteria None seen /hpf (None Seen) Urine Glucose 2+ mg/dL (Normal) Blood Gas Specimen Type Arterial Blood Gas Sample Site Left radial Blood Gas Patient Temperature 37.0 Arterial Blood Date Drawn Arterial Blood pH 7.340 (7.350-7.450) Arterial Blood Partial Pressure CO2 45.2 mmHg (35.0-48.0) Arterial Blood Partial Pressure O2 67.8 mmHg (83.0-108.0) Arterial Blood HCO3 23.8 mmol/L (21.0-28.0) Arterial Blood Oxygen Saturation 92.7 % (94.0-98.0) Arterial Blood Base Excess -2.2 mmol/L (-2.0-3.0) Arterial Blood Oxyhemoglobin 90.7 % (94.0-98.0) Arterial Blood Carboxyhemoglobin 1.5 % (0.5-1.5) Arterial Blood Methemoglobin 0.7 % (0.0-1.5) Tab Test Yes Blood Gas Total Hemoglobin 16.70 g/dL (13.5-17.5) Blood Gas Liter Flow 2.00 Blood Gas Modality Nasal cannula FiO2 % 28.0 Specimen Drawn By Rosey Sanders 07/05/24 16:00 Troponin I High Sensitivity 18 ng/L (</=54) B-Type Natriuretic Peptide 88.07 pg/mL (0-100) Other Laboratory Tests 07/06/24 06:22 Brief Hx & Hospital Course: This is a 54 YO Male with multiple medical problems who presented to the ER from Dr Rudy Paredes for hypoxia and shortness of breath. Patient had stopped taking his Lasix medications over 7 days ago as he ran out. Patient had swelling in his lower extremities and part of his abdomen. Patient had no fevers, chills, no white count, or wheezing. Patient was admitted for acte CHF Exacerbation with concern for possible COPD exacerbation. Patient had a blood gas that was completed and showed minimally elevated CO2 but seem to be chronic in nature. Patient improved overnight with IV diuresis and Med Neb treatments. Patient was seen by cardiology and cleared to go home with some adjustments to his medications as listed below. Cardiology recommended that patient be started on Xarelto 10mg PO dailly for DVT prophylaxis given that patient is typically non ambulatory. Other recommendations was to start patient on Farxiga for heart protection, and start a low dose statin. Patient also has history of defibrillator which the patient says no longer functioning. Patient apparently was told by his primary record pressman that he needs a replacement after they were not able to replace his battery. Patient apparently refused surgery on two different occasions secondary to not wanting to be shocked as its painful and that he plainly does not want any procedures to be done. Patient understands the risks of arrhythmia and possible form not having this life saving procedure completed. Patient will be discharged home in stable condition with home health arranged to monitor his CHF and Diabetes. Consults/Reason for consult Dr. Michael Gregorio, Cardiology Operations or Procedures None Condition at Discharge: Stable Final Diagnosis/Problems List Acute CHF exacerbation, Chronic Respiratory Failure Secondary Diagnosis: Essential Hypertension Diabetes Mellitus Type 2 Morbid Obesity Espilepsy Discharge Disposition: Home Discharge Instruct/Medications Diet: Consistent carbohydrate, Cardiac 2g Na,low cholest Activity: No Restrictions, As Tolerated Follow Up/Referral: PCP follow up in the next 5-7 days Cardiology, Dr. Lima, in the next 5-7 days Patient to be placed on Cardio Comp through [facility] Congestive Heart failure monitoring. Patient to monitor daily morning weights and blood pressures and keep a log to present to primary care provider. Medications: Take Lasix 80mg PO twice a day for three days then back to 1 tab a day after that. Lipitor 20mg PO daily Xarelto 10mg PO Daily for DVT prophylaxis Lisinopril 10mg PO daily Farxiga 10mg PO daily Discharge Statement: "Patient was advised to return to the ER or call 911 if any headaches, dizziness, shortness of breath, chest pain, abdominal pain, bleeding, fevers, or worsening of medical condition. Patient was counseled about treatment plan, medications, possible side effects, patientverbalized understanding. All questions were answered to the best of my ability. This discharge took greater then 30 minutes in planning, reviewing documentation, counseling the patient, and discussing with other team members." ASSESSMENT ASSESSMENT Assessment Acute CHF exacerbation, Chronic Respiratory Failure CONSUELO HAN MD Jul 06, 2024 10:39
[2024-07-06] MEDS: hydrALAZINE HCL 20 MG/ML VL IV PRN (12:13)
[2024-07-06] MEDS: HYDROcodone-ACET 5/325MG TAB PO PRN (13:35)
--- NOTE | 2024-07-06 20:50 | DVHPN2 ---
Progress Note - Dictate Date Seen: Jul 06, 2024 Medical Necessity Reason Pt with a Central, PICC or Fol: No Subjective Patient was seen and evaluated in follow up. Patient is complaining of SOB. BS are elevated in the 300s. Echocardiogram is pending. vital signs Vital Sign Date Time Temp Pulse Resp B/P (MAP) Pulse Ox O2 Delivery O2 Flow Rate FiO2 07/06/24 17:05 98.1 86 21 112/60 (77) 92 98.1 07/06/24 10:16 Nasal Cannula* 3 32 Total Intake and Output 07/05/24 07/05/24 07/06/24 15:00 23:00 07:00 Intake Total 150 ml 240 ml Output Total 250 ml Balance 150 ml -10 ml objective GENERAL: Awake, alert, oriented. Morbidly obese. LUNGS: Coarse breath sounds. CARDIOVASCULAR: Heart sounds are good. ABDOMEN: Soft. laboratory and microbiology Laboratory Tests 07/06/24 06:22 Test 07/06/24 06:22 Range/Units Serum Glucose 332 H 74-106 mg/dL Problem List Acute CHF exacerbation. Acute on chronic respiratory failure COPD exacerbation. Asthma. DM. HTN. Seizures. Assessment/Plan Continued all current supportive medical care. Echocardiogram. Morphine and Lutz for pain management. Coreg, Lisinopril. DVT prophylactics. Diuretics with Lasix. Additional plan as per the hospital course. Plan discussed with: Patient CAROLIN ANG MD Jul 06, 2024 20:50
--- NOTE | 2024-07-06 21:31 | DVHPN ---
DATE: 07/06/2024 SUBJECTIVE: The patient was seen, evaluated and examined with our nurse. The patient is morbidly obese. He is on oxygen. He has been bedridden. Blood pressure is currently 150/93. His sodium 130, potassium 4.5, chloride 106, CO2 26. His glucose is 328. DIAGNOSES: As follows: * Underlying systolic and diastolic congestive heart failure. * Morbid obesity. * Chronic obstructive pulmonary disease. * Chronic respiratory failure. PLAN: * I discussed with Dr. Ames. We put him on the Lasix. * Lisinopril increase the dose as tolerated. * Coreg 12.5 b.i.d., increase the dose as tolerated. * Management of the blood sugar and also suggested to put him on the Xarelto 10 mg a day, aspirin 81 mg a day, Lipitor and that he may also qualify to have Farxiga or Jardiance. * Outpatient followup. * He will be on oxygen also at home. Extended time spent. Explanation given. Jefferson Gregorio MD MP TID: [id number] RECEIPT: [id number]
--- NOTE | 2024-07-16 02:14 | DVHSR ---
APPROVED REPORT EXAM: Two-dimensional and M-mode echocardiogram with Doppler and color Doppler. Blood Pressure: 139/70 mmHg INDICATION Heart Failure RISK FACTORS Obesity: Height: 5'6", Weight: 461 DIMENSIONS LVDd4.8 (3.8-5.7cm)LA (2D)4.0 (1.9-4.0cm)Aortic Root2.8 (2.0-3.7cm) LVDs3.2 (2.5-4.0cm)LA (MM) (1.9-4.0cm)Aortic Cusp Exc2.4 (1.5-2.0cm) EF (%) 64.0 (55-70%)Rt. Atrium (1.9-4.0cm)Asc. Aorta cm IVSd1.5 (0.7-1.1cm)RV (D) (1.8-2.4cm) PWd1.1 (0.7-1.1cm) Mitral Valve MitralMitral Stenosis E/A ratio0.02D MVAcm2 Aortic Valve Aortic ValveAortic Stenosis LVOT Diameter2.4 (1.8-2.4cm)Doppler AVAcm2 Tricuspid Valve TR Velocity2.79m/s [id number] Other Information Quality : Technically LimitedRhythm : Technically limited study due to body habitus and patient position. Conclusion MODERATELY DILATED RIGHT VENTRICLE AND RIGHT ATRIUM MILD PULMONARY HYPERTENSION RVSP IS 40 MM OF HG AND IS ELEVATED LV EJECTION FRACTION IS 65% NORMAL VALVES NO EFFUSION
== END 2024-07-06 17:31 | disposition home or self-care (01) ==
LOC: ER 15:03 → EDBD 15:03 → TELE 21:50 → INTOOBSV 21:50 → TELE-WESTW 07-06 02:07
PROVIDERS: ADMIT Hospitalist; ATTEND Hospitalist
DX: J18.9 Pneumonia, unspecified organism (principal); J96.21 Acute and chronic respiratory failure with hypoxia; I11.0 Hypertensive heart disease with heart failure; I50.43 Acute on chronic combined systolic (congestive) and diastolic (congestive) heart failure; J44.1 Chronic obstructive pulmonary disease with (acute) exacerbation; G40.909 Epilepsy, unspecified, not intractable, without status epilepticus; E11.9 Type 2 diabetes mellitus without complications; E66.01 Morbid (severe) obesity due to excess calories; E78.5 Hyperlipidemia, unspecified; D84.9 Immunodeficiency, unspecified; R11.2 Nausea with vomiting, unspecified; R82.4 Acetonuria; Z79.899 Other long term (current) drug therapy; Z95.810 Presence of automatic (implantable) cardiac defibrillator; Z86.73 Personal history of transient ischemic attack (TIA), and cerebral infarction without residual deficits
CPT/HCPCS: 36415; 36600; 71045; 80048; 81001; 82805; 82962; 83880; 84484; 85025; 93005; 93306; 94640; 96365; 96372; 96375; 96376; 99291; 99292; G0378; J0360; J1650; J1815; J1940; J1956; J2919

== ENCOUNTER 2024-08-10 21:50 | Emergency (ER) | payer OTHER ==
[~2024-08-10] VITALS: Ht 167.6 cm; Wt 163.2 kg
[~2024-08-10 21:50] MED LIST changes: +ATOR20TA PO; +DAPA1TAB4 PO; -FURO1TAB33 PO; -GLYB5TAB9 PO; -HYDR-4902 PO; +LISI-275 PO; +LISI10TA34 PO; -LISI2.5T47 PO; +RIVA10TA PO
--- NOTE | 2024-08-10 22:48 | DVH ---
EXAMINATION: AP portable chest radiograph CLINICAL HISTORY: chest pain COMPARISON: XY CHEST PORTABLE on DOS: 07/05/24 FINDINGS: Left-sided implantable cardiac device again noted. Cardiac silhouette is enlarged. Diffuse pulmonary haziness and vascular redistribution. No definite p leural effusion or pneumothorax. IMPRESSION: Cardiomegaly with pulmonary vascular congestion / interstitial edema. Correlate to exclude atypical i nfection.
[2024-08-10 22:51] LABS: Basophils # (auto) 0 10 ^3/uL (0-0.2); Basophils % (auto) 0.5 % (0.0-2.0); Eosinophils # (auto) 0.2 10 ^3/uL (0-0.8); Eosinophils % (auto) 2.3 % (0.0-7.0); Hematocrit 48.5 % (41.0-53.0); Hemoglobin 16.2 g/dL (13.5-17.5); Lymphocytes # (auto) 2.7 10 ^3/uL (0.4-5.4); Lymphocytes % (auto) 37.4 % (10.0-50.0); Mean Corpuscular Hemoglobin 28.2 pg (28.0-32.0); Mean Corpuscular Hgb Conc. 33.3 g/dL (32.0-36.0); Mean Corpuscular Volume 84.5 fL (80.0-100.0); Monocytes # (auto) 0.5 10 ^3/uL (0-1.3); Monocytes % (auto) 6.6 % (0.0-12.0); Neutrophils # (auto) 3.8 10 ^3/uL (1.6-8.6); Neutrophils % (auto) 53.2 % (37.0-80.0); Nucleated Red Blood Cells % 0.5 %; Platelet Count (auto) 180 10^3/uL (140-450); Red Blood Cells 5.74 10^6/uL (4.5-5.90); Red Cell Distribution Width 15.7 % (11.8-14.3); White Blood Cell 7.1 10^3/uL (4.4-10.8)
[2024-08-10 23:08] LABS: Alanine Aminotransferase 10 U/L (7-40); Albumin 4.2 g/dL (3.2-4.8); Anion Gap 9 (5-15); BUN/Creatinine Ratio 13.3 (10.0-20.0); Bilirubin, Total 0.6 mg/dL (0.2-1.0); Blood Urea Nitrogen 20 mg/dL (9-23); Calcium 9.6 mg/dL (8.7-10.4); Carbon Dioxide 28 mmol/L (20-31); Chloride 98 mmol/L (98-107); Potassium 3.8 mmol/L (3.5-5.1); Total Protein 7.2 g/dL (5.7-8.2)
[2024-08-10 23:18] LABS: Alkaline Phosphatase 148 U/L (46-116); Aspartate Aminotransferase 13 U/L (13-40); Glucose 323 mg/dL (74-106); Sodium 135 mmol/L (136-145)
[2024-08-10 23:30] VITALS: TEMP 97.9
--- NOTE | 2024-08-10 23:40 | ED.PDOC ---
HPI Comments A 54 year old male brought in by EMS presents to the ED with a chief complaint of palpitations onset today. Patient states he was talking on the phone when he felt his defibrillator "shock him." Patient also states "battery has been for almost 2 years" and has not followed up to get it changed. Patient is currently experiencing chest discomfort and rates pain 10/31. He has a past medical history of COPD, CHF, seizures, HTN, DM, Afib, asthma, CVA. Denies cough, fever, dizziness, abdominal pain, nausea, vomiting, diarrhea. No other symptoms or modifying factors present at this time. Chief Complaint: Palpitations Time Seen by MD: 23:29 Primary Care Provider: UNKNOWN Reviewed Notes: Medications, Allergies Allergies: Coded Allergies: Penicillins (Verified Allergy, Unknown, 06/10/21) Home Meds Active Scripts Rivaroxaban (XARELTO) 10 Mg Tab, 1 TAB PO DAILY, #30 TAB Prov:CONSUELO HAN MD 07/06/24 Atorvastatin Calcium (Lipitor) 20 Mg Tab, 1 TAB PO DAILY, #90 TAB 1 Refill Prov:CONSUELO HAN MD 07/06/24 Lisinopril (Lisinopril) 10 Mg Tab, 10 MG PO DAILY for 90 Days, #90 TAB Prov:CONSUELO HAN MD 07/06/24 Lisinopril (Lisinopril) 5 Mg Tab, 5 MG PO DAILY for 60 Days, #60 TAB Prov:CONSUELO HAN MD 07/06/24 Dapagliflozin Propanediol (Farxiga) 10 Mg Tab, 10 MG PO DAILY, #60 TAB Prov:CONSUELO HAN MD 07/06/24 Furosemide (Lasix) 80 Mg Tab, 80 TAB PO DAILY, #90 TAB 1 Refill Prov:CONSUELO HAN MD 07/05/24 Reported Medications Metformin HCl (Metformin Hydrochloride) 500 Mg/5 Ml Ken[place], 500 MG PO BID, ML 11/17/21 Amiodarone Hcl (Amiodarone Hcl) 200 Mg Tab, 1 TAB PO DAILY, #90 TAB 1 Refill 06/11/21 Hydrochlorothiazide (Hydrochlorothiazide) 25 Mg Tab, 1 TAB PO DAILY, #30 TAB 5 Refills 06/11/21 Aspirin (Aspir-81) 81 Mg Tab, 1 TAB PO DAILY, #30 TAB 5 Refills 06/11/21 Levetiracetam (KEPPRA TABLET) 500 Mg Tb, 500 MG PO BID, TAB 06/11/21 Atorvastatin Calcium (ATORVASTATIN CALCIUM) 20 Mg Tab, 1 TAB PO QPM, #30 TAB 5 Refills 06/11/21 Hydralazine Hcl (Hydralazine Hcl) 50 Mg Tab, 25 MG PO TID, TAB 06/11/21 Spironolactone (Spironolactone) 25 Mg Tab, 1 TAB PO BID, #90 TAB 1 Refill 06/11/21 Carvedilol (Carvedilol) 12.5 Mg Tab, 1 TAB PO BID, #180 TAB 1 Refill 06/11/21 Allopurinol (ZYLOPRIM TABLET) 100 Mg Tb, 1 TAB PO DAILY, #30 TAB 5 Refills 06/11/21 Epa Ethyl Nazanin (VASCEPA) 1 Gm Cap, 1 GM OR, CAP 06/11/21 Sitagliptin Phosphate (Januvia) 100 Mg Tab, 1 TAB PO DAILY, #30 TAB 5 Refills 06/11/21 Albuterol Sulfate (Albuterol Sulfate Hfa) 108 Mcg/Act Aer, 108 MCG IN, AER 06/11/21 Information Source: Patient, Emergency Med Personnel Mode of Arrival: EMS Severity: Moderate Timing: Hours Duration: Since onset Prehospital treatment: None Cardiac Risk Factors: HTN, Diabetes PE Risk Factors: None History of: Aspirin Associated Signs and Symptoms: Palpitations Past Medical History PAST MEDICAL HISTORY: Asthma, CHF, COPD, CVA, DM, High Lipids, HTN, Seizures Surgical History: Pacemaker Family History Family History: Reviewed,noncontributory to illness, No family hx of Liver corbin, No family hx of Lung corbin, Family hx of DM, Family hx of heart corbin, Family hx of HTN, Family hx of Kidney corbin Social History Smoker: Non-Smoker, Quit Greater Than 1 Year Alcohol: Denies ETOH Use, Sober Drugs: Denies Drug Use, Marijuana Lives In: Home Constitutional: denies: chills, diaphoresis, fatigue, fever, malaise, sweats, weakness, others EENTM: denies: blurred vision, double vision, ear bleeding, ear discharge, ear drainage, ear pain, ear ringing, eye pain, eye redness, hearing loss, mouth pain, mouth swelling, nasal discharge, nose bleeding, nose congestion, nose pain, photophobia, tearing, throat pain, throat swelling, voice changes, others Respiratory: denies: cough, hemoptysis, orthopnea, SOB at rest, shortness of breath, SOB with excertion, stridor, wheezing, others Cardiovascular: reports: chest pain, palpitations; denies: dizzy spells, diaphoresis, Dyspnea on exertion, edema, irregular heart beat, left arm pain, lightheadedness, PND, syncope, others Gastrointestinal: denies: abdomen distended, abdominal pain, blood streaked b owels, constipated, diarrhea, dysphagia, difficulty swallowing, hematemesis, melena, nausea, poor appetite, poor fluid intake, rectal bleeding, rectal pain, vomiting, others Genitourinary: denies: burning, dysuria, flank pain, frequency, hematuria, incontinence, penile discharge, penile sore, pain, testicle pain, testicle swelling, urgency, others Neurological: denies: dizziness, fainting, headache, left sided numbness, left sided weakness, numbness, paresthesia, pre-existing deficit, right sided numbness, right sided weakness, seizure, speech problems, tingling, tremors, weakness, others Musculoskeletal: denies: back pain, gout, joint pain, joint swelling, muscle pain, muscle stiffness, neck pain, others Integumetry: denies: bruises, change in color, change in hair/nails, dryness, laceration, lesions, lumps, rash, wounds, others Allergic/Immunocompromised: denies: Difficulty Healing, Frequent Infections, Hives, Itching, others Hematologic/Lymphatic: denies: anemia, blood clots, easy bleeding, easy bruisi ng, swollen glands, others Endocrine: denies: excessive hunger, excessive sweating, excessive thirst, exce ssive urination, flushing, intolerance to cold, intolerance to heat, unexplained weight gain, unexplained weight loss, others Psychiatric: denies: anxiety, bipolar disorder, depression, hopeless, panic disorder, schizophrenia, sleepless, suicidal, others All Other Systems: Reviewed and Negative Physical Exam General Appearance: No Apparent Distress, Normal HEENT: Normal ENT Inspection, Pharynx Normal, TMs Normal Neck: Full Range of Motion, Non-Tender, Normal, Normal Inspection Respiratory: Chest Non-Tender, Lungs Clear, No Accessory Muscle Use, No Respiratory Distress, Normal Breath Sounds Cardiovascular: No Edema, No JVD, No Murmur, No Gallop, Normal Peripheral Pulses, Regular Rate/Rhythm Breast Exam: Deferred Gastrointestinal: No Organomegaly, Non Tender, No Pulsatile Mass, Normal Bowel Sounds, Soft Genitalia: Deferred Pelvic: Deferred Rectal: Deferred Extremities: No calf tenderness, Normal capillary refill, Normal inspection, Normal range of motion, Non-tender, No pedal edema Musculoskeletal : Apperance: Normal Neurologic: Alert, director of laboratory operations II-XII nml as Tested, No Motor Deficits, Normal Affect, Normal Mood, No Sensory Deficits Cerebellar Function: Normal Reflexes: Normal Skin: Dry, Normal Color, Warm Lymphatic: No Adenopathy EKG EKG : Pulse Rate (adult): 100 [place]: RAD Hypertrophy: LAE Comments artifact in several leads Was a procedure done? Was a procedure done?: No CP Differential Dx Differential Diagnosis: A-fib, A-Flutter, Angina, Atrial Dysrhythmia, Heart Failure, Pacemaker Malfunction, PSVT, PVC's, Sinus Tachycardia, Torsades De Poi ntes, V-Fib, V-Tach, WPW X-Ray, Labs, Meds, VS Vital Signs Date Time Temp Pulse Resp B/P (MAP) Pulse Ox O2 Delivery O2 Flow Rate FiO2 08/10/24 22:04 97.8 108 24 128/86 (100) 94 08/10/24 21:54 100 Lab Test 08/10/24 23:25 08/10/24 22:28 Range/Units Troponin I High Sensitivity 18 18 </=54 ng/L White Blood Count 7.1 4.4-10.8 10^3/uL Red Blood Count 5.74 4.5-5.90 10^6/uL Hemoglobin 16.2 13.5-17.5 g/dL Hematocrit 48.5 41.0-53.0 % Mean Corpuscular Volume 84.5 80.0-100.0 fL Mean Corpuscular Hemoglobin 28.2 28.0-32.0 pg Mean Corpuscular Hemoglobin Concent 33.3 32.0-36.0 g/dL Red Cell Distribution Width 15.7 H 11.8-14.3 % Platelet Count 180 140-450 10^3/uL Mean Platelet Volume 7.9 6.9-10.8 fL Neutrophils (%) (Auto) 53.2 37.0-80.0 % Lymphocytes (%) (Auto) 37.4 10.0-50.0 % Monocytes (%) (Auto) 6.6 0.0-12.0 % Eosinophils (%) (Auto) 2.3 0.0-7.0 % Basophils (%) (Auto) 0.5 0.0-2.0 % Neutrophils # (Auto) 3.8 1.6-8.6 10 ^3/uL Lymphocytes # (Auto) 2.7 0.4-5.4 10 ^3/uL Monocytes # (Auto) 0.5 0-1.3 10 ^3/uL Eosinophils # (Auto) 0.2 0-0.8 10 ^3/uL Basophils # (Auto) 0 0-0.2 10 ^3/uL Nucleated Red Blood Cells 0.5 % Sodium Level 135 L 136-145 mmol/L Potassium Level 3.8 3.5-5.1 mmol/L Chloride Level 98 98-107 mmol/L Carbon Dioxide Level 28 20-31 mmol/L Anion Gap 9 5-15 Blood Urea Nitrogen 20 9-23 mg/dL Creatinine 1.50 H 0.700-1.30 mg/dL Glomerular Filtration Rate Calc 55 >90 mL/min BUN/Creatinine Ratio 13.3 10.0-20.0 Serum Glucose 323 H 74-106 mg/dL Calcium Level 9.6 8.7-10.4 mg/dL Total Bilirubin 0.6 0.2-1.0 mg/dL Aspartate Amino Transferase (AST) 13 13-40 U/L Alanine Aminotransferase (ALT) 10 7-40 U/L Alkaline Phosphatase 148 H 46-116 U/L Total Protein 7.2 5.7-8.2 g/dL Albumin 4.2 3.2-4.8 g/dL [address] [address] Ph: [phone] DIAGNOSTIC IMAGING Diagnostic Imaging Report : [id number] Signed PATIENT: SANDY SANCHEZ ACCT: [id number] UNIT: [id number] : 1970 LOC: ER ROOM / BED: / AGE / SEX: 54 / M ADM STATUS: REG ER SERVICE 02 ORDERING PHYSICIAN: REZA BECERRIL MD PROCEDURE(s): CXRP - CHEST PORTABLE REASON: chest pain ORDER NUMBER(s): [id number], ACCESSION NUMBER(s): [id number] EXAMINATION: AP portable chest radiograph CLINICAL HISTORY: chest pain COMPARISON: XY CHEST PORTABLE on DOS: 07/05/24 FINDINGS: Left-sided implantable cardiac device again noted. Cardiac silhouette is enlarged. Diffuse pulmonary haziness and vascular redistribution. No definite pleural effusion or pneumothorax. IMPRESSION: Cardiomegaly with pulmonary vascular congestion / interstitial edema. Correlate to exclude atypical infection. ATED BY: STUART GREGORIO MD DICTATED DATE/TIME: 08/10/242245 SIGNED BY: STUART GREGORIO MD SIGNED DATE/TIME: 08/10/242245 CC: Time of 1ST Reevaluation: 23:59 Reevaluation 1ST: Unchanged Time of 2ND Reevaluation: 00:16 Reevaluation 2ND: Unchanged Patient Education/Counseling: Diagnosis, Treatment, Prognosis Family Education/Counseling: No Family Present Additional Information I reviewed the following notes from patient's past medical encounters: The following tests were ordered, and results were reviewed by me: CBC, CMP, TROP, TROP, EKG, Chest XY Additional Information was gathered from interviewing the following independent historians: EMS I reviewed and agreed with the following test results read by other providers: radiologist I discussed treatment and results with medical personnel and: patient Departure 1 Departure Time of Disposition: 00:16 Impression: Primary Impression: Life-threatening cardiac arrhythmia Disposition: ADMITTED INPATIENT Admit to: Tele Condition: Guarded Critical Care Note Critical Care Time?: Yes (45 min-critical care time only) Critical care comment: Total critical care time: Approximately 36 minutes Due to a high probability of clinically significant, life threatening deterioration, the patient required my highest level of preparedness to intervene emergently and I personally spent this critical care time directly and personally managing the patient. This critical care time included obtaining a history; examining the patient; pulse oximetry; ordering and review of studies; arranging urgent treatment with development of a management plan; evaluation of patient's response to treatment; frequent reassessment; and, discussions with other providers. This critical care time was performed to assess and manage the high probability of imminent, life-threatening deterioration that could result in multi-organ failure. It was exclusive of separately billable procedures and treating other patients. Stability Stability form required: No Heart Score Heart Score: Heart Score Response (Comments) Value History Highly Suspicious 2 EKG Repolarization Disturb 1 Age 45-64 1 Risk Factors 1 or 2 risk factors 1 Troponin Normal limit 0 Total 5 I personally scribed for REZA BECERRIL MD ([email or web address]) on 08/10/24 at 23:40. Electronically submitted by Aline Vásquez ([email or web address]). REZA BECERRIL MD Aug 10, 2024 23:40
[2024-08-10] MEDS: ASPirin 81 mg TAB PO ONE (23:45)
[2024-08-11 00:22] VITALS: PULSE 90; RESP 18; O2SAT 96
--- NOTE | 2024-08-11 00:33 | DVH ---
CHEST RADIOGRAPH Indication: chest pain Technique: Single frontal view of the chest was obtained Comparison: XY CHEST PORTABLE on DOS: 08/10/24, XY CHEST PORTABLE on DOS: 07/05/24, CHEST PORTABLE on DOS: 10/08/22 Findings/ IMPRESSION: Compared to most recent prior there is relative stable bilateral opacification which may be from poor inspiratory effort versus pulmonary edema versus developing airspace disease. Mild cardiomegaly is u nchanged. Left-sided cardiac device unchanged. No pneumothorax.
[2024-08-11 06:00] VITALS: BP 121/70; RESP 20; O2SAT 96
--- NOTE | 2024-08-11 06:36 | ECG ---
[facility] Test Date: 2024-08-10 Test Time: 21:54:50 Pat Name: SANDY SANCHEZ Department: ER Room: Gender: M Assisted Living Housekeeper: OPHELIA : 1970 Requested By: REZA BECERRIL Order Number: [id number] Reading MD: Royal Rutherford Measurements Intervals [place] Rate: 100 P: 65 DC: 169 QRS: 96 QRSD: 104 T: 19 QT: 362 QTc: 467 Interpretive Statements Sinus tachycardia Probable left atrial enlargement Borderline right axis deviation Consider anterolateral infarct Artifact in lead(s) I,II,III,aVR,aVL,aVF,V5 Electronically Signed On 08-12-2024 10:29:22 PST by Royal Rutherford Please click the below link to view image of tracing.
[2024-08-11 08:00] VITALS: PULSE 88
== END 2024-08-11 10:15 | disposition home or self-care (01) ==
LOC: EDBD 21:50 → ER 21:50
DX: I49.9 Cardiac arrhythmia, unspecified (principal); I11.0 Hypertensive heart disease with heart failure; I50.9 Heart failure, unspecified; E11.9 Type 2 diabetes mellitus without complications; E78.5 Hyperlipidemia, unspecified; J44.9 Chronic obstructive pulmonary disease, unspecified; F15.90 Other stimulant use, unspecified, uncomplicated; Z86.73 Personal history of transient ischemic attack (TIA), and cerebral infarction without residual deficits; Z95.0 Presence of cardiac pacemaker; Z87.891 Personal history of nicotine dependence; Z88.0 Allergy status to penicillin; Z79.01 Long term (current) use of anticoagulants; Z79.82 Long term (current) use of aspirin; Z79.84 Long term (current) use of oral hypoglycemic drugs; Z79.899 Other long term (current) drug therapy
CPT/HCPCS: 36415; 71045; 80053; 84484; 85025; 93005

== ENCOUNTER 2024-09-29 23:12 | Inpatient (IN) | payer OTHER, MEDICARE ==
[~2024-09-29] VITALS: Ht 168.9 cm; Wt 167.6 kg
[2024-09-29] MEDS ORDERED: AMIODARONE HCL 200 MG TAB PO ONE (23:30)
[2024-09-29 23:42] LABS: Basophils # (auto) 0.1 10 ^3/uL (0-0.2); Basophils % (auto) 0.6 % (0.0-2.0); Eosinophils # (auto) 0.2 10 ^3/uL (0-0.8); Eosinophils % (auto) 1.9 % (0.0-7.0); Hematocrit 43.5 % (41.0-53.0); Hemoglobin 14.8 g/dL (13.5-17.5); Lymphocytes # (auto) 3.3 10 ^3/uL (0.4-5.4); Lymphocytes % (auto) 35.4 % (10.0-50.0); Mean Corpuscular Hemoglobin 28.8 pg (28.0-32.0); Mean Corpuscular Hgb Conc. 34.1 g/dL (32.0-36.0); Mean Corpuscular Volume 84.3 fL (80.0-100.0); Monocytes # (auto) 0.7 10 ^3/uL (0-1.3); Monocytes % (auto) 7.1 % (0.0-12.0); Neutrophils # (auto) 5.2 10 ^3/uL (1.6-8.6); Platelet Count (auto) 187 10^3/uL (140-450); Red Blood Cells 5.16 10^6/uL (4.5-5.90); Red Cell Distribution Width 15.6 % (11.8-14.3); White Blood Cell 9.4 10^3/uL (4.4-10.8)
--- NOTE | 2024-09-29 23:44 | ED.PDOC ---
HPI Comments HPI: Poor Historian. 54-year-old male brought in by ambulance from home for evaluation of palp itation. Patient says he has a pacemaker but the battery needs to be replaced and has not been working for approximately one year. He stated that they contacted him to get it fixed but he never showed up. Later the patient endorsed that he has not been taking most of his medications including Coumadin and amiodarone. Per EMS patient onset started 1 hour prior to arrival of palpitation sensation. They found the patient with heart rate in the 150s to 180s consistent with atrial fibrillation with RVR. Past Medical History: CHF, COPD, atrial fibrillation, hypertension, diabetes, seizure disorder, stroke. Past Surgical History: REVIEW OF SYSTEMS: CONSTITUTIONAL: Denies acute: fever, diaphoresis, chills, HEAD: Denies acute: headache, photophobia Eyes: Denies acute: Double vision, vision loss, eye pain, eye discharge. EARS: Denies acute: tinnitus, hearing loss, ear discharge, ear pain, THROAT: Denies acute: sore throat, swelling, difficulty swallowing , pain with swallowing, change in voice. NECK: Denies acute: neck pain, neck swelling, stiff neck. HEART: Denies acute : chest pain, LUNGS: Denies acute: wheezing, cough, hemoptysis ABDOMEN: Denies acute: abdominal pain, Nausea, Vomiting, diarrhea, melena , hematemesis, hematochezia SKIN: Denies acute: rash, redness, lesions, itchiness. EXTREMITIES: Denies acute: calf pain, numbness, tingling, weakness, denies pain in extremity. Denies acute: Low back pain. Neuro: Denies acute: focal neurological deficit, motor or sensory focal neurological deficit, tremors, seizure like activity, confusion, dizziness, change in mental status, loss of bowel or bladder function, cauda equina like symptoms. : Denies acute: dysuria, hematuria, flank pain, increase in urinary frequency. PSYCH: Denies acute: hallucination, suicidal ideation, homicidal ideation. PHYSICAL EXAM: General: no acute distress, awake and alert. Head: normocephalic, atraumatic. Neck: supple, trachea is midline, no swelling. Throat: Normal phonation. Eyes:, no erythema, no purulent discharge, no proptosis, no icterus. Heart: Irregular rate and rhythm consistent with atrial fibrillation with RVR, no significant murmur appreciated. Lungs: no apparent respiratory distress, Able to speak in full sentences. No wheezing, no rhonchi, no crackles. No stridors Clear to auscultation bilaterally. Abdomen: non tender to palpation, non distended, soft, no guarding, no rebound, + bowel sounds. Morbidly obese Neuro: Awake, Alert, oriented to name, self, situation, follows commands GCS=15. Speech is normal. Skin: no petechia, no purpura, no cyanosis, non-pale, not jaundice. Lower extremities: --2/4 - Pitting edema no deformity, no focal swelling, no calf TTP. Makes eye contact. moves all four extremities. Face: no apparent facial droop. ED COURSE: Chief Complaint: Palpitations Time Seen by MD: 23:18 Primary Care Provider: UNKNOWN Reviewed Notes: Nurses Notes, Safety Manager Notes, Allergies Allergies: Coded Allergies: Penicillins (Verified Allergy, Unknown, 06/10/21) Home Meds Active Scripts Rivaroxaban (XARELTO) 10 Mg Tab, 1 TAB PO DAILY, #30 TAB Prov:CONSUELO HAN MD 07/06/24 Atorvastatin Calcium (Lipitor) 20 Mg Tab, 1 TAB PO DAILY, #90 TAB 1 Refill Prov:CONSUELO HAN MD 07/06/24 Lisinopril (Lisinopril) 10 Mg Tab, 10 MG PO DAILY for 90 Days, #90 TAB Prov:CONSUELO HAN MD 07/06/24 Lisinopril (Lisinopril) 5 Mg Tab, 5 MG PO DAILY for 60 Days, #60 TAB Prov:CONSUELO HAN MD 07/06/24 Dapagliflozin Propanediol (Farxiga) 10 Mg Tab, 10 MG PO DAILY, #60 TAB Prov:CONSUELO HAN MD 07/06/24 Furosemide (Lasix) 80 Mg Tab, 80 TAB PO DAILY, #90 TAB 1 Refill Prov:CONSUELO HAN MD 07/05/24 Reported Medications Metformin HCl (Metformin Hydrochloride) 500 Mg/5 Ml [place], 500 MG PO BID, ML 11/17/21 Amiodarone Hcl (Amiodarone Hcl) 200 Mg Tab, 1 TAB PO DAILY, #90 TAB 1 Refill 06/11/21 Hydrochlorothiazide (Hydrochlorothiazide) 25 Mg Tab, 1 TAB PO DAILY, #30 TAB 5 Refills 06/11/21 Aspirin (Aspir-81) 81 Mg Tab, 1 TAB PO DAILY, #30 TAB 5 Refills 06/11/21 Levetiracetam (KEPPRA TABLET) 500 Mg Tb, 500 MG PO BID, TAB 06/11/21 Atorvastatin Calcium (ATORVASTATIN CALCIUM) 20 Mg Tab, 1 TAB PO QPM, #30 TAB 5 Refills 06/11/21 Hydralazine Hcl (Hydralazine Hcl) 50 Mg Tab, 25 MG PO TID, TAB 06/11/21 Spironolactone (Spironolactone) 25 Mg Tab, 1 TAB PO BID, #90 TAB 1 Refill 06/11/21 Carvedilol (Carvedilol) 12.5 Mg Tab, 1 TAB PO BID, #180 TAB 1 Refill 06/11/21 Allopurinol (ZYLOPRIM TABLET) 100 Mg Tb, 1 TAB PO DAILY, #30 TAB 5 Refills 06/11/21 Epa Ethyl Nazanin (VASCEPA) 1 Gm Cap, 1 GM OR, CAP 06/11/21 Sitagliptin Phosphate (Januvia) 100 Mg Tab, 1 TAB PO DAILY, #30 TAB 5 Refills 06/11/21 Albuterol Sulfate (Albuterol Sulfate Hfa) 108 Mcg/Act Aer, 108 MCG IN, AER 06/11/21 Information Source: Patient, Emergency Med Personnel Past Medical History PAST MEDICAL HISTORY: Asthma, CHF, COPD, CVA, DM, High Lipids, HTN, Seizures Surgical History: Pacemaker Family History Family History: Reviewed,noncontributory to illness, No family hx of Liver corbin, No family hx of Lung corbin, Family hx of DM, Family hx of heart corbin, Family hx of HTN, Family hx of Kidney corbin Social History Smoker: Non-Smoker, Quit Greater Than 1 Year Alcohol: Denies ETOH Use, Sober Drugs: Denies Drug Use, Marijuana Lives In: Home Was a procedure done? Was a procedure done?: No CP Differential Dx Differential Diagnosis: A-fib, A-Flutter, Angina, Anxiety / Panic Attack, Atrial Dysrhythmia, AV Block 1st Degree, AV Block 3rd Degree, Digoxin Toxicity, Electrolyte Disorder, Heart Failure, Hyperthyroidism, Hyperventilation, Hypoxia, MAT, ID, PAC's, Pacemaker Malfunction, PSVT, Pulmonary Embolus, PVC's, Renal Failure, Sinus Tachycardia, Torsades De Pointes, Ventricular Dysrhythmia, V-Fib, V-Tach, WPW X-Ray, Labs, Meds, VS Vital Signs Date Time Temp Pulse Resp B/P (MAP) Pulse Ox O2 Delivery O2 Flow Rate FiO2 09/30/24 01:14 94/49 09/30/24 01:01 154 09/30/24 00:40 98.3 167 21 142/115 (124) 94 98.3 09/30/24 00:40 167 21 94 Simple Mask* 6 50 09/29/24 23:51 16 98 Nasal Cannula* 2 28 09/29/24 23:15 97.3 170 24 112/78 (89) 94 Lab Test 09/30/24 00:33 09/29/24 23:34 Range/Units Troponin I High Sensitivity 29 21 </=54 ng/L White Blood Count 9.4 4.4-10.8 10^3/uL Red Blood Count 5.16 4.5-5.90 10^6/uL Hemoglobin 14.8 13.5-17.5 g/dL Hematocrit 43.5 41.0-53.0 % Mean Corpuscular Volume 84.3 80.0-100.0 fL Mean Corpuscular Hemoglobin 28.8 28.0-32.0 pg Mean Corpuscular Hemoglobin Concent 34.1 32.0-36.0 g/dL Red Cell Distribution Width 15.6 H 11.8-14.3 % Platelet Count 187 140-450 10^3/uL Mean Platelet Volume 7.4 6.9-10.8 fL Neutrophils (%) (Auto) 55.0 37.0-80.0 % Lymphocytes (%) (Auto) 35.4 10.0-50.0 % Monocytes (%) (Auto) 7.1 0.0-12.0 % Eosinophils (%) (Auto) 1.9 0.0-7.0 % Basophils (%) (Auto) 0.6 0.0-2.0 % Neutrophils # (Auto) 5.2 1.6-8.6 10 ^3/uL Lymphocytes # (Auto) 3.3 0.4-5.4 10 ^3/uL Monocytes # (Auto) 0.7 0-1.3 10 ^3/uL Eosinophils # (Auto) 0.2 0-0.8 10 ^3/uL Basophils # (Auto) 0.1 0-0.2 10 ^3/uL Nucleated Red Blood Cells 0.0 % Prothrombin Time 10.2 9.3-11.8 sec Prothrombin Time INR 0.96 0.9-1.15 Activated Partial Thromboplast Time 30.0 24.5-34.5 SEC Sodium Level 136 136-145 mmol/L Potassium Level 4.2 3.5-5.1 mmol/L Chloride Level 101 98-107 mmol/L Carbon Dioxide Level 26 20-31 mmol/L Anion Gap 9 5-15 Blood Urea Nitrogen 16 9-23 mg/dL Creatinine 1.20 0.700-1.30 mg/dL Glomerular Filtration Rate Calc 72 >90 mL/min BUN/Creatinine Ratio 13.3 10.0-20.0 Serum Glucose 227 H 74-106 mg/dL Calcium Level 9.3 8.7-10.4 mg/dL Magnesium Level 1.5 L 1.6-2.6 mg/dL Total Bilirubin 0.6 0.2-1.0 mg/dL Aspartate Amino Transferase (AST) 8 L 13-40 U/L Alanine Aminotransferase (ALT) < 9 7-40 U/L Alkaline Phosphatase 120 H 46-116 U/L B-Type Natriuretic Peptide 20.77 0-100 pg/mL Total Protein 6.6 5.7-8.2 g/dL Albumin 4.0 3.2-4.8 g/dL Current Medications Medications (Trade) Dose Ordered Sig/Ju Route Start Time Stop Time Status Last Admin Methylprednisolone Sodium Succinate (Solu Medrol) 125 mg ONCE ONCE IV 09/29/24 23:30 09/30/24 00:27 DC 09/30/24 01:14 Furosemide (Lasix Injection) 60 mg ONCE ONCE IV 09/29/24 23:30 09/30/24 00:27 DC 09/30/24 01:14 Amiodarone HCl 100 ml @ 618 mls/hr ONCE ONCE IV 09/30/24 01:00 09/30/24 01:09 DC 09/30/24 00:52 Magnesium Sulfate/ Dextrose 100 ml @ 100 mls/hr ONCE ONCE IV 09/30/24 01:00 09/30/24 01:59 DC 09/30/24 01:20 Time of 1ST Reevaluation: 01:06 (The case was discussed with the admitting team (HPI, physical exam, labs and diagnostic tests that were available at the time of disposition, ED course, treatment plan) on the phone. They agreed to admit the patient to their service and assume care of this patient from this point forward. --- magno. ) Reevaluation 1ST: Unchanged Time of 2ND Reevaluation: 02:41 Reevaluation 2ND: Improved Patient Education/Counseling: Diagnosis, Treatment Family Education/Counseling: No Family Present Comments Patient presented with the above HPI.---atrial fibrillation with RVR---workup was initiated. patient was found with the above mentioned diagnosis. the following medications were ordered: please refer to order lists of meds and tests obtained by myself Dr. Fuller. Patient ED course and VS have been stabilized. Patient has been reassessed in the ED and remained in a stable condition. Pertinent incidental findings were discussed with the patient and/or family. Patient/family voices understanding and is agreeable with plan. Patient has been observed in the ED adequate length of time to insure improvement/stability. Escalation of care considered: Consideration of escalation to observation or admission Patient was ADMITTED to the medicine team for further evaluation and treatment of their presentation. Patient has been noncompliant with the medication for a long time. Patient has not been taking his Coumadin. Patient has not been taking amiodarone along with many other medications. Patient was not a candidate to cardiovert him electrically in the ED at this time. Amiodarone bolus and a drip were initiated. All the reports of any imaging studies that were ordered by myself were reviewed by myself. Departure 1 Departure Time of Disposition: 00:47 Impression: Primary Impression: Atrial fibrillation with RVR Additional Impressions: Noncompliance with medication regimen CHF exacerbation Hypomagnesemia Disposition: 09 ADMITTED INPATIENT Admit to: Tele Condition: Guarded Discharged With: Self Critical Care Note Critical Care Time?: Yes (1 hr-critical care time only) Heart Score Heart Score: Heart Score Response (Comments) Value History Moderate Suspicious 1 EKG Repolarization Disturb 1 Age 45-64 1 Risk Factors >3 or Hx ASHD 2 Troponin Normal limit 0 Total 5 SIMRAN FULLER DO Sep 29, 2024 23:44
[2024-09-29] MEDS: ALBUTEROL SULF 2.5 MG/0.5ML(0.5%) NEB SOLN ONE (23:51)
[2024-09-29] MEDS: IPRATROPIUM BROM 0.5 MG/2.5ML INH SOL ONE ×2 (23:51→23:52)
[2024-09-29] MEDS: ALBUTEROL SULF 2.5 MG/0.5ML(0.5%) NEB SOLN NEB ONE (23:51)
[2024-09-29] MEDS: IPRATROPIUM BROM 0.5 MG/2.5ML INH SOL NEB ONE (23:51)
[2024-09-29 23:59] LABS: INR 0.96 (0.9-1.15); Prothrombin Time 10.2 sec (9.3-11.8)
[2024-09-30] VITALS (13 sets, daily range): BP systolic 117; BP diastolic 60; PULSE 80–167; RESP 16–24; O2SAT 86–99
[2024-09-30] LABS: Anion Gap 9 (5-15); BUN/Creatinine Ratio 13.3 (10.0-20.0); Bilirubin, Total 0.6 mg/dL (0.2-1.0); Blood Urea Nitrogen 16 mg/dL (9-23); Calcium 9.3 mg/dL (8.7-10.4); Carbon Dioxide 26 mmol/L (20-31); Chloride 101 mmol/L (98-107); Potassium 4.2 mmol/L (3.5-5.1); Sodium 136 mmol/L (136-145); Total Protein 6.6 g/dL (5.7-8.2)
[2024-09-30 00:01] LABS: Alanine Aminotransferase < 9 U/L (7-40); Alkaline Phosphatase 120 U/L (46-116); Aspartate Aminotransferase 8 U/L (13-40); Glucose 227 mg/dL (74-106); Magnesium 1.5 mg/dL (1.6-2.6)
--- NOTE | 2024-09-30 00:36 | DVH ---
EXAM: XY CHEST PORTABLE CLINICAL HISTORY: sob/palpitations/afib TECHNIQUE: Single AP view of the chest WID: COMPARISON: XY CHEST PORTABLE on DOS: 08/11/24, FINDINGS: Lines and tubes: Defibrillator pad projects over the right chest. There is a left-sided multi lead pa cemaker in place. Chest: Cardiomegaly and pulmonary vascular congestion. No pneumothorax. The costophrenic angles are not enti rely included in the field of view. The osseous structures are grossly intact. IMPRESSION: Cardiomegaly and mild pulmonary vascular congestion.
[2024-09-30] MEDS: AMIODARONE BOLUS KIT 100 ML IV ONE (00:52)
[2024-09-30] MEDS ORDERED: AMIODARONE 360mg/200mL PREMIX 200 ML IV SCH (01:00)
[2024-09-30] MEDS: AMIODARONE 360mg/200mL PREMIX 200 ML IV SCH ×2 (01:03→07:03)
[2024-09-30] MEDS: methylPREDNISolone SOD SUCC 125 MG/2 ML VL IV ONE (01:14)
[2024-09-30] MEDS: FUROSEMIDE 100 MG/10ML VIAL IV ONE (01:14)
[2024-09-30] MEDS ORDERED: DEXTROSE (50%) 50ML SYRG IV PRN (01:15)
[2024-09-30] MEDS ORDERED: NITROGLYCERIN 0.4 MG SL TAB SL PRN (01:15)
[2024-09-30] MEDS ORDERED: MORPHINE SULFATE INJ 2 MG/ml SYRG IV PRN (01:15)
[2024-09-30] MEDS: MAGNESIUM SULFATE 1GM/100ML 100 ML IV ONE (01:20)
--- NOTE | 2024-09-30 01:38 | DVHHP2 ---
Admitting Diagnosis: Afib RVR, medical noncompliance History of Present Illness HPI 54 y.o. male with Afib, pacemaker, CHF, DM, morbid obesity was brought to the ED with Abif RVR with HR over 160. Patient c/o palpitations and SOB. Patient is aware that his pacemaker battery is not working for a year or so. He was in the ER 2 months ago and [facility] medical management scheduled an appointment for him to see a patient transition specialist on 07/25/24 but it was a no show. After that [facility] binder caser made 3 attempts to reschedule but was not able to contact the patient. Patient informed that he also has not been taking his prescribed medications. His BG on arrival was 227. ER MD started Amiodarone drip. Home Meds Active Scripts Rivaroxaban (XARELTO) 10 Mg Tab, 1 TAB PO DAILY, #30 TAB Prov:CONSUELO HAN MD 07/06/24 Atorvastatin Calcium (Lipitor) 20 Mg Tab, 1 TAB PO DAILY, #90 TAB 1 Refill Prov:CONSUELO HAN MD 07/06/24 Lisinopril (Lisinopril) 10 Mg Tab, 10 MG PO DAILY for 90 Days, #90 TAB Prov:CONSUELO HAN MD 07/06/24 Lisinopril (Lisinopril) 5 Mg Tab, 5 MG PO DAILY for 60 Days, #60 TAB Prov:CONSUELO HAN MD 07/06/24 Dapagliflozin Propanediol (Farxiga) 10 Mg Tab, 10 MG PO DAILY, #60 TAB Prov:CONSUELO HAN MD 07/06/24 Furosemide (Lasix) 80 Mg Tab, 80 TAB PO DAILY, #90 TAB 1 Refill Prov:CONSUELO HAN MD 07/05/24 Reported Medications Metformin HCl (Metformin Hydrochloride) 500 Mg/5 Ml [place], 500 MG PO BID, ML 11/17/21 Amiodarone Hcl (Amiodarone Hcl) 200 Mg Tab, 1 TAB PO DAILY, #90 TAB 1 Refill 06/11/21 Hydrochlorothiazide (Hydrochlorothiazide) 25 Mg Tab, 1 TAB PO DAILY, #30 TAB 5 Refills 06/11/21 Aspirin (Aspir-81) 81 Mg Tab, 1 TAB PO DAILY, #30 TAB 5 Refills 06/11/21 Levetiracetam (KEPPRA TABLET) 500 Mg Tb, 500 MG PO BID, TAB 06/11/21 Atorvastatin Calcium (ATORVASTATIN CALCIUM) 20 Mg Tab, 1 TAB PO QPM, #30 TAB 5 Refills 06/11/21 Hydralazine Hcl (Hydralazine Hcl) 50 Mg Tab, 25 MG PO TID, TAB 06/11/21 Spironolactone (Spironolactone) 25 Mg Tab, 1 TAB PO BID, #90 TAB 1 Refill 06/11/21 Carvedilol (Carvedilol) 12.5 Mg Tab, 1 TAB PO BID, #180 TAB 1 Refill 06/11/21 Allopurinol (ZYLOPRIM TABLET) 100 Mg Tb, 1 TAB PO DAILY, #30 TAB 5 Refills 06/11/21 Epa Ethyl Nazanin (VASCEPA) 1 Gm Cap, 1 GM OR, CAP 06/11/21 Sitagliptin Phosphate (Januvia) 100 Mg Tab, 1 TAB PO DAILY, #30 TAB 5 Refills 06/11/21 Albuterol Sulfate (Albuterol Sulfate Hfa) 108 Mcg/Act Aer, 108 MCG IN, AER 06/11/21 Past Medical History Cardiac: AFIB, CHF, HTN, Hyperlipidemia Pulmonary: COPD Endocrine: NIDDM Patient Family History: Asthma G8 MOTHER G8 BROTHER G8 SISTER Diabetes mellitus G8 MOTHER Other blood disorders G8 MOTHER Review of Systems Cardiovascular: Palpitations, Edema H&P Exam Vital Signs Vital Signs Date Time Temp Pulse Resp B/P (MAP) Pulse Ox O2 Delivery O2 Flow Rate FiO2 09/30/24 01:14 94/49 09/29/24 23:51 16 98 Nasal Cannula* 2 28 09/29/24 23:15 97.3 170 General Appeara: Obese Head Exam: Normal inspection Neck Exam: Normal inspection Eye Exam: bilateral eye PERRL, bilateral eye EOMI Pulmonary/Respiratory: Crackles Cardiovascular/Chest: Tachycardia, Irregularly irregular Abdominal Exam: No tenderness Ankle Exam: bilateral ankle Swelling Foot: bilateral foot swelling Neuro/Mental St: Alert, Oriented Labs/Xrays Labs Test 09/30/24 00:33 09/29/24 23:34 Range/Units Troponin I High Sensitivity 29 </=54 ng/L White Blood Count 9.4 4.4-10.8 10^3/uL Red Blood Count 5.16 4.5-5.90 10^6/uL Hemoglobin 14.8 13.5-17.5 g/dL Hematocrit 43.5 41.0-53.0 % Mean Corpuscular Volume 84.3 80.0-100.0 fL Mean Corpuscular Hemoglobin 28.8 28.0-32.0 pg Mean Corpuscular Hemoglobin Concent 34.1 32.0-36.0 g/dL Red Cell Distribution Width 15.6 H 11.8-14.3 % Platelet Count 187 140-450 10^3/uL Mean Platelet Volume 7.4 6.9-10.8 fL Neutrophils (%) (Auto) 55.0 37.0-80.0 % Lymphocytes (%) (Auto) 35.4 10.0-50.0 % Monocytes (%) (Auto) 7.1 0.0-12.0 % Eosinophils (%) (Auto) 1.9 0.0-7.0 % Basophils (%) (Auto) 0.6 0.0-2.0 % Neutrophils # (Auto) 5.2 1.6-8.6 10 ^3/uL Lymphocytes # (Auto) 3.3 0.4-5.4 10 ^3/uL Monocytes # (Auto) 0.7 0-1.3 10 ^3/uL Eosinophils # (Auto) 0.2 0-0.8 10 ^3/uL Basophils # (Auto) 0.1 0-0.2 10 ^3/uL Nucleated Red Blood Cells 0.0 % Prothrombin Time 10.2 9.3-11.8 sec Prothrombin Time INR 0.96 0.9-1.15 Activated Partial Thromboplast Time 30.0 24.5-34.5 SEC Sodium Level 136 136-145 mmol/L Potassium Level 4.2 3.5-5.1 mmol/L Chloride Level 101 98-107 mmol/L Carbon Dioxide Level 26 20-31 mmol/L Anion Gap 9 5-15 Blood Urea Nitrogen 16 9-23 mg/dL Creatinine 1.20 0.700-1.30 mg/dL Glomerular Filtration Rate Calc 72 >90 mL/min BUN/Creatinine Ratio 13.3 10.0-20.0 Serum Glucose 227 H 74-106 mg/dL Calcium Level 9.3 8.7-10.4 mg/dL Magnesium Level 1.5 L 1.6-2.6 mg/dL Total Bilirubin 0.6 0.2-1.0 mg/dL Aspartate Amino Transferase (AST) 8 L 13-40 U/L Alanine Aminotransferase (ALT) < 9 7-40 U/L Alkaline Phosphatase 120 H 46-116 U/L B-Type Natriuretic Peptide 20.77 0-100 pg/mL Total Protein 6.6 5.7-8.2 g/dL Albumin 4.0 3.2-4.8 g/dL Assessment/Plan Problem List: (1) Atrial fibrillation with RVR (2) Noncompliance with medication regimen (3) CHF exacerbation Plan Amiodarone drip, Lovenox, Lasix, ECHO, cardiology consult Plan discussed with: Patient ROXY SEXTON MD Sep 30, 2024 01:38
[2024-09-30] MEDS: ENOXAPARIN SOD 150 MG/1 ML SYRINGE SC ONE (02:12)
[2024-09-30] MEDS: ACCU-CHEK COMFORT CURVE STRIP VI SCH (05:48)
[2024-09-30] MEDS: InsuLIN REG 1unit/0.01ml Soln (100units/ml) SC SCH (05:53)
[2024-09-30] MEDS: FUROSEMIDE 40 MG/4 ML VIAL IV SCH (05:53)
--- NOTE | 2024-09-30 06:07 | ECG ---
[facility] Test Date: 2024-09-29 Test Time: 23:18:58 Pat Name: SANDY SANCHEZ Department: ER Room: [address] [place] [address] Gender: M Digital Solutions Architect: OPHELIA : 1970 Requested By: SIMRAN PAZ Order Number: [id number] Reading MD: Royal Rutherford Measurements Intervals [place] Rate: 162 P: 0 WI: 0 QRS: 91 QRSD: 97 T: 4 QT: 299 QTc: 492 Interpretive Statements Atrial fibrillation Probable lateral infarct, old Electronically Signed On 09-30-2024 12:12:13 PST by Royal Rutherford Please click the below link to view image of tracing.
--- NOTE | 2024-09-30 06:08 | ECG ---
[facility] Test Date: 2024-09-30 Test Time: 02:30:20 Pat Name: SANDY SANCHEZ Department: ER Room: [address] [place] [address] Gender: M Fashion Coordinator: OPHELIA : 1970 Requested By: SIMRAN PAZ Order Number: [id number] Reading MD: Royal Rutherford Measurements Intervals [place] Rate: 139 P: 0 WI: 0 QRS: 93 QRSD: 101 T: 9 QT: 319 QTc: 485 Interpretive Statements Atrial fibrillation Borderline right axis deviation Borderline prolonged QT interval Electronically Signed On 09-30-2024 12:12:23 PST by Royal Rutherford Please click the below link to view image of tracing.
[2024-09-30 06:29] LABS: Basophils # (auto) 0 10 ^3/uL (0-0.2); Basophils % (auto) 0.4 % (0.0-2.0); Eosinophils # (auto) 0 10 ^3/uL (0-0.8); Eosinophils % (auto) 0.4 % (0.0-7.0); Hematocrit 46.1 % (41.0-53.0); Hemoglobin 15.8 g/dL (13.5-17.5); Lymphocytes # (auto) 1.4 10 ^3/uL (0.4-5.4); Lymphocytes % (auto) 15.3 % (10.0-50.0); Mean Corpuscular Hemoglobin 28.9 pg (28.0-32.0); Mean Corpuscular Hgb Conc. 34.3 g/dL (32.0-36.0); Mean Corpuscular Volume 84.1 fL (80.0-100.0); Monocytes # (auto) 0.1 10 ^3/uL (0-1.3); Monocytes % (auto) 1.2 % (0.0-12.0); Neutrophils # (auto) 7.3 10 ^3/uL (1.6-8.6); Neutrophils % (auto) 82.7 % (37.0-80.0); Nucleated Red Blood Cells % 0.1 %; Platelet Count (auto) 193 10^3/uL (140-450); Red Blood Cells 5.48 10^6/uL (4.5-5.90); Red Cell Distribution Width 15.5 % (11.8-14.3); White Blood Cell 8.9 10^3/uL (4.4-10.8)
[2024-09-30] MEDS: ALBUTEROL SULF 2.5 MG/0.5ML(0.5%) NEB SOLN NEB SCH (06:31)
[2024-09-30] MEDS: IPRATROPIUM BROM 0.5 MG/2.5ML INH SOL NEB SCH (06:31)
[2024-09-30 06:43] LABS: Alanine Aminotransferase < 9 U/L (7-40); Albumin 4.5 g/dL (3.2-4.8); Alkaline Phosphatase 132 U/L (46-116); Anion Gap 7 (5-15); Aspartate Aminotransferase 9 U/L (13-40); BUN/Creatinine Ratio 15.8 (10.0-20.0); Bilirubin, Total 0.5 mg/dL (0.2-1.0); Blood Urea Nitrogen 19 mg/dL (9-23); Calcium 9.6 mg/dL (8.7-10.4); Carbon Dioxide 30 mmol/L (20-31); Chloride 99 mmol/L (98-107); Glucose 275 mg/dL (74-106); Potassium 4.5 mmol/L (3.5-5.1); Sodium 136 mmol/L (136-145); Total Protein 7.3 g/dL (5.7-8.2)
[2024-09-30 07:20] LABS: Urine Bacteria None Seen /hpf (None Seen)
[2024-09-30 07:51] LABS: Urine Blood Negative /uL (Negative); Urine Clarity Clear (Clear); Urine Color Light-Yellow (Yellow); Urine Hyaline Cast MOD /lpf (0 - 2); Urine Protein, UAD Negative (Negative); Urine Specific Gravity 1.015 (1.001-1.035); Urine Squamous Epithelial Cell FEW /hpf (<5); Urine Urobilinogen Normal (Negative); Urine WBC < 1 /HPF (0-3)
--- NOTE | 2024-09-30 10:16 | DVHINCON2 ---
Date of service: Sep 30, 2024 History of Present Illness 54 yo M massively obese BMI of 65, hx of afib on doac, hx of ppm (no infiormation but per its at [facility]) comes in for weakness. pt is a terrible historian and sleepy. he likely has severe NOAH. he knows little to nothing abut his ppm history. his cards tried to set him up for ppm change out but per primary pt was lost to follow up or didnt follow up. Past Medical History reviewed Family History: Asthma G8 MOTHER G8 BROTHER G8 SISTER Diabetes mellitus G8 MOTHER Other blood disorders G8 MOTHER Allergies: Coded Allergies: Penicillins (Verified Allergy, Unknown, 06/10/21) Home Meds Active Scripts Rivaroxaban (XARELTO) 10 Mg Tab, 1 TAB PO DAILY, #30 TAB Prov:CONSUELO HAN MD 07/06/24 Atorvastatin Calcium (Lipitor) 20 Mg Tab, 1 TAB PO DAILY, #90 TAB 1 Refill Prov:CONSUELO HAN MD 07/06/24 Lisinopril (Lisinopril) 10 Mg Tab, 10 MG PO DAILY for 90 Days, #90 TAB Prov:CONSUELO HAN MD 07/06/24 Lisinopril (Lisinopril) 5 Mg Tab, 5 MG PO DAILY for 60 Days, #60 TAB Prov:CONSUELO HAN MD 07/06/24 Dapagliflozin Propanediol (Farxiga) 10 Mg Tab, 10 MG PO DAILY, #60 TAB Prov:CONSUELO HAN MD 07/06/24 Furosemide (Lasix) 80 Mg Tab, 80 TAB PO DAILY, #90 TAB 1 Refill Prov:CONSUELO HAN MD 07/05/24 Reported Medications Metformin HCl (Metformin Hydrochloride) 500 Mg/5 Ml [place], 500 MG PO BID, ML 11/17/21 Amiodarone Hcl (Amiodarone Hcl) 200 Mg Tab, 1 TAB PO DAILY, #90 TAB 1 Refill 06/11/21 Hydrochlorothiazide (Hydrochlorothiazide) 25 Mg Tab, 1 TAB PO DAILY, #30 TAB 5 Refills 06/11/21 Aspirin (Aspir-81) 81 Mg Tab, 1 TAB PO DAILY, #30 TAB 5 Refills 06/11/21 Levetiracetam (KEPPRA TABLET) 500 Mg Tb, 500 MG PO BID, TAB 06/11/21 Atorvastatin Calcium (ATORVASTATIN CALCIUM) 20 Mg Tab, 1 TAB PO QPM, #30 TAB 5 Refills 06/11/21 Hydralazine Hcl (Hydralazine Hcl) 50 Mg Tab, 25 MG PO TID, TAB 06/11/21 Spironolactone (Spironolactone) 25 Mg Tab, 1 TAB PO BID, #90 TAB 1 Refill 06/11/21 Carvedilol (Carvedilol) 12.5 Mg Tab, 1 TAB PO BID, #180 TAB 1 Refill 06/11/21 Allopurinol (ZYLOPRIM TABLET) 100 Mg Tb, 1 TAB PO DAILY, #30 TAB 5 Refills 06/11/21 Epa Ethyl Nazanin (VASCEPA) 1 Gm Cap, 1 GM OR, CAP 06/11/21 Sitagliptin Phosphate (Januvia) 100 Mg Tab, 1 TAB PO DAILY, #30 TAB 5 Refills 06/11/21 Albuterol Sulfate (Albuterol Sulfate Hfa) 108 Mcg/Act Aer, 108 MCG IN, AER 06/11/21 Current Medications Current Medications Medications (Trade) Dose Ordered Sig/Ju Route PRN Reason Start Time Stop Time Status Last Admin Nitroglycerin (Ntrostat Sublingual) 0.4 mg Q5MINP PRN SL FOR CHEST PAIN 09/30/24 01:15 Morphine Sulfate 2 mg Q30M PRN IV FOR CHEST PAIN 09/30/24 01:15 Diagnostic Test (Pha) (Accu-Chek Comfort Curve T) 1 strip Q6HR 09/30/24 06:00 09/30/24 05:48 Insulin Human Regular (InsuLIN R) Q6HR SC 09/30/24 06:00 09/30/24 05:53 Dextrose 50 ml UD PRN IV Blood Sugar LESS THAN 60 09/30/24 01:15 Furosemide (Lasix Injection) 40 mg TID IV 09/30/24 06:00 09/30/24 05:53 Albuterol (Ventolin Medneb) 2.5 mg Q6HR NEB 09/30/24 06:00 09/30/24 06:31 Ipratropium [place] (Atrovent Medneb) 0.5 mg Q6HP NEB 09/30/24 06:00 09/30/24 06:31 Review of Systems 10 pt ros otherwise negative Vital Signs Vital Signs Date Time Temp Pulse Resp B/P (MAP) Pulse Ox O2 Delivery O2 Flow Rate FiO2 09/30/24 09:20 70 20 117/63 (81) 95 09/30/24 07:57 8.0 09/30/24 06:31 Simple Mask* 60 09/30/24 00:40 98.3 98.3 Physical Exam nad s1 s2 irregular diffuse rhonchi abd soft obese +2 leg edema Labs/Diagnostic Data Labs Test 09/30/24 06:15 09/30/24 05:52 09/30/24 05:47 09/30/24 02:27 Range/Units Urine Color Light-yellow Yellow Urine Clarity Clear Clear Urine pH 5.0 5.0-9.0 Urine Specific [place] 1.015 1.001-1.035 Urine Protein Negative Negative Urine Ketones Negative Negative Urine Blood Negative Negative /uL Urine Nitrite Negative Negative Urine Bilirubin Negative Negative Urine Urobilinogen Normal Negative mg/dL Urine Leukocyte Esterase Negative Negative /uL Urine RBC None seen 0 - 3 /hpf Urine Microscopic WBC < 1 0-3 /HPF Urine Squamous Epithelial Cells Few <5 /hpf Urine Bacteria None seen None Seen /hpf Urine Hyaline Casts Mod 0 - 2 /lpf Urine Glucose Normal Normal mg/dL White Blood Count 8.9 4.4-10.8 10^3/uL Red Blood Count 5.48 4.5-5.90 10^6/uL Hemoglobin 15.8 13.5-17.5 g/dL Hematocrit 46.1 41.0-53.0 % Mean Corpuscular Volume 84.1 80.0-100.0 fL Mean Corpuscular Hemoglobin 28.9 28.0-32.0 pg Mean Corpuscular Hemoglobin Concent 34.3 32.0-36.0 g/dL Red Cell Distribution Width 15.5 H 11.8-14.3 % Platelet Count 193 140-450 10^3/uL Mean Platelet Volume 7.7 6.9-10.8 fL Neutrophils (%) (Auto) 82.7 H 37.0-80.0 % Lymphocytes (%) (Auto) 15.3 10.0-50.0 % Monocytes (%) (Auto) 1.2 0.0-12.0 % Eosinophils (%) (Auto) 0.4 0.0-7.0 % Basophils (%) (Auto) 0.4 0.0-2.0 % Neutrophils # (Auto) 7.3 1.6-8.6 10 ^3/uL Lymphocytes # (Auto) 1.4 0.4-5.4 10 ^3/uL Monocytes # (Auto) 0.1 0-1.3 10 ^3/uL Eosinophils # (Auto) 0 0-0.8 10 ^3/uL Basophils # (Auto) 0 0-0.2 10 ^3/uL Nucleated Red Blood Cells 0.1 % Sodium Level 136 136-145 mmol/L Potassium Level 4.5 3.5-5.1 mmol/L Chloride Level 99 98-107 mmol/L Carbon Dioxide Level 30 20-31 mmol/L Anion Gap 7 5-15 Blood Urea Nitrogen 19 9-23 mg/dL Creatinine 1.20 0.700-1.30 mg/dL Glomerular Filtration Rate Calc 72 >90 mL/min BUN/Creatinine Ratio 15.8 10.0-20.0 Serum Glucose 275 H 74-106 mg/dL Calcium Level 9.6 8.7-10.4 mg/dL Total Bilirubin 0.5 0.2-1.0 mg/dL Aspartate Amino Transferase (AST) 9 L 13-40 U/L Alanine Aminotransferase (ALT) < 9 7-40 U/L Alkaline Phosphatase 132 H 46-116 U/L Total Protein 7.3 5.7-8.2 g/dL Albumin 4.5 3.2-4.8 g/dL POC Glucose 270 H 70-106 mg/dl Troponin I High Sensitivity 39 </=54 ng/L Test 09/29/24 23:34 Range/Units Prothrombin Time 10.2 9.3-11.8 sec Prothrombin Time INR 0.96 0.9-1.15 Activated Partial Thromboplast Time 30.0 24.5-34.5 SEC Magnesium Level 1.5 L 1.6-2.6 mg/dL B-Type Natriuretic Peptide 20.77 0-100 pg/mL Assessment massive obesity bmi of 65 afib ppm ?DAKOTA, htn weakness NOAH Plan/Recommendation device check (we dont know name of company_ ) pt unaware hold doac rate control pt , HR 80s consider device change out when feasible , check coags Plan discussed with: Patient DEMARIO HSIEH MD Sep 30, 2024 10:16
[2024-10-01] VITALS (15 sets, daily range): BP systolic 121–149; BP diastolic 68–85; PULSE 70–94; RESP 17–76; TEMP 97.8–98.5; O2SAT 91–100
[2024-10-01] MEDS ORDERED: METF-370 PO (00:08)
[2024-10-01] MEDS ORDERED: SEMA2INJ3 (00:25)
--- NOTE | 2024-10-01 11:00 | DVHPN2 ---
Progress Note - Dictate Date Seen: Oct 01, 2024 Medical Necessity Reason Pt with a Central, PICC or Fol: No Subjective Patient resting comfortably. vital signs Vital Sign Date Time Temp Pulse Resp B/P (MAP) Pulse Ox O2 Delivery O2 Flow Rate FiO2 10/01/24 10:00 98 Room Air* 0 21 10/01/24 09:00 98.4 88 19 149/83 (105) 98.4 Total Intake and Output 09/30/24 09/30/24 10/01/24 15:00 23:00 07:00 Intake Total 116.62 ml 16.66 ml 116.62 ml Balance 116.62 ml 16.66 ml 116.62 ml medications Current Medications Medications Dose Ordered Sig/Ju Route Start Time Stop Time Status Last Admin Dose Admin Nitroglycerin 0.4 mg Q5MINP PRN SL 09/30/24 01:15 Morphine Sulfate 2 mg Q30M PRN IV 09/30/24 01:15 Diagnostic Test (Pha) 1 strip Q6HR 09/30/24 06:00 10/01/24 06:11 1 STRIP Insulin Human Regular Q6HR SC 09/30/24 06:00 10/01/24 06:09 3 UNITS Dextrose 50 ml UD PRN IV 09/30/24 01:15 Furosemide 40 mg TID IV 09/30/24 06:00 10/01/24 06:06 40 MG Albuterol 2.5 mg Q6HR NEB 09/30/24 06:00 10/01/24 07:34 2.5 MG Ipratropium [place] 0.5 mg Q6HP NEB 09/30/24 06:00 10/01/24 07:34 0.5 MG objective General: Obese Lungs: CTA Cards: RRR. Trace lower extremity edema laboratory and microbiology Laboratory Tests 09/30/24 05:52 Test 09/30/24 05:52 Range/Units Serum Glucose 275 H 74-106 mg/dL Assessment/Plan 1. CHF Exacerbation 2. Atrial Fibrillation with RVR, now rate controlled 3. Morbid Obesity 4. Type 2 DM 5. End Stage CHF last reported EF 20-25%, with AICD 6. Medication Non-Compliance Plan: -Cardiology consulted, Dr. Cuellar. -Amiodarone drip -Lasix per OCT -Strict I/O -PPM battery replacement planned for Thursday. Hold DVT prophylaxis and anticoagulation. Patient overdue since 02/2023. -Insulin sliding scale -Hgb A1c ordered, lipid panel ordered -Full Code Plan discussed with: Patient TED JAMESON DO Oct 01, 2024 11:00
[2024-10-01] MEDS: ACETAMINOPHEN 325 MG TAB PO PRN (21:48)
[2024-10-02] VITALS (16 sets, daily range): BP systolic 116–147; BP diastolic 56–96; PULSE 82–95; RESP 16–20; TEMP 97.7–98.1; O2SAT 94–100
[2024-10-02] MEDS ORDERED: LORazepam 2MG/ML-1ML VIAL IV PRN (01:45)
[2024-10-02] MEDS: levETIRAcetam 500 MG TAB PO ONE (01:57)
[2024-10-02] MEDS: levETIRAcetam 500 MG TAB PO SCH (09:42)
--- NOTE | 2024-10-02 10:54 | DVHPN2 ---
Progress Note - Dictate Date Seen: Oct 02, 2024 Medical Necessity Reason Pt with a Central, PICC or Fol: No Subjective Patient resting comfortably. Complains of mild headache. vital signs Vital Sign Date Time Temp Pulse Resp B/P (MAP) Pulse Ox O2 Delivery O2 Flow Rate FiO2 10/02/24 07:32 94 Nasal Cannula* 2 28 10/02/24 07:32 94 16 10/02/24 05:23 116/56 10/02/24 05:00 97.9 97.9 Total Intake and Output 10/01/24 10/01/24 10/02/24 15:00 23:00 07:00 Intake Total 344 ml 494.94 ml Output Total 1700 ml 0 ml Balance -1356 ml 494.94 ml medications Current Medications Medications Dose Ordered Sig/Ju Route Start Time Stop Time Status Last Admin Dose Admin Nitroglycerin 0.4 mg Q5MINP PRN SL 09/30/24 01:15 Morphine Sulfate 2 mg Q30M PRN IV 09/30/24 01:15 Diagnostic Test (Pha) 1 strip Q6HR 09/30/24 06:00 10/02/24 05:23 1 STRIP Insulin Human Regular Q6HR SC 09/30/24 06:00 10/02/24 05:24 3 UNITS Dextrose 50 ml UD PRN IV 09/30/24 01:15 Furosemide 40 mg TID IV 09/30/24 06:00 10/02/24 05:23 40 MG Albuterol 2.5 mg Q6HR NEB 09/30/24 06:00 10/02/24 07:32 2.5 MG Ipratropium [place] 0.5 mg Q6HP NEB 09/30/24 06:00 10/02/24 07:32 0.5 MG Acetaminophen 650 mg Q4HP PRN PO 10/01/24 13:00 10/01/24 21:48 650 MG Lorazepam 1 mg Q2HP PRN IV 10/02/24 01:45 Levetiracetam 500 mg BID PO 10/02/24 10:00 10/02/24 09:42 500 MG objective General: Obese Lungs: CTA Cards: RRR. laboratory and microbiology Laboratory Tests 09/30/24 05:52 Test 09/30/24 05:52 Range/Units Serum Glucose 275 H 74-106 mg/dL Assessment/Plan 1. CHF Exacerbation 2. Atrial Fibrillation with RVR, now rate controlled 3. Morbid Obesity 4. Type 2 DM 5. End Stage CHF last reported EF 20-25%, with AICD 6. Medication Non-Compliance Plan: -Cardiology consulted, Dr. Cuellar. -Amiodarone drip discontinued, rate controlled -Lasix per OCT -Strict I/O -PPM battery replacement planned for Thursday. Hold DVT prophylaxis and anticoagulation. Patient overdue since 02/2023. -Insulin sliding scale -Hgb A1c ordered, lipid panel ordered -Full Code Plan discussed with: Patient TED JAMESON DO Oct 02, 2024 10:54
[2024-10-02 12:10] LABS: Basophils # (auto) 0.1 10 ^3/uL (0-0.2); Basophils % (auto) 1.6 % (0.0-2.0); Eosinophils # (auto) 0.1 10 ^3/uL (0-0.8); Eosinophils % (auto) 1.6 % (0.0-7.0); Hematocrit 45.7 % (41.0-53.0); Hemoglobin 15.3 g/dL (13.5-17.5); Lymphocytes # (auto) 1.9 10 ^3/uL (0.4-5.4); Lymphocytes % (auto) 29.5 % (10.0-50.0); Mean Corpuscular Hemoglobin 28.4 pg (28.0-32.0); Mean Corpuscular Hgb Conc. 33.5 g/dL (32.0-36.0); Mean Corpuscular Volume 84.6 fL (80.0-100.0); Monocytes # (auto) 0.5 10 ^3/uL (0-1.3); Monocytes % (auto) 8.2 % (0.0-12.0); Neutrophils # (auto) 3.9 10 ^3/uL (1.6-8.6); Neutrophils % (auto) 59.1 % (37.0-80.0); Nucleated Red Blood Cells % 0.1 %; Platelet Count (auto) 190 10^3/uL (140-450); Red Cell Distribution Width 15.2 % (11.8-14.3); White Blood Cell 6.6 10^3/uL (4.4-10.8)
[2024-10-02 12:25] LABS: Alanine Aminotransferase 10 U/L (7-40); Albumin 4.3 g/dL (3.2-4.8); Anion Gap 8 (5-15); BUN/Creatinine Ratio 11.7 (10.0-20.0); Bilirubin, Total 0.4 mg/dL (0.2-1.0); Blood Urea Nitrogen 15 mg/dL (9-23); Calcium 9.7 mg/dL (8.7-10.4); Carbon Dioxide 31 mmol/L (20-31); Chloride 101 mmol/L (98-107); Cholesterol 148 mg/dL (< 200); LDL Cholesterol 83 mg/dL (< 100); Potassium 3.9 mmol/L (3.5-5.1); Sodium 140 mmol/L (136-145)
[2024-10-02 12:28] LABS: INR 1.02 (0.9-1.15); Prothrombin Time 10.8 sec (9.3-11.8)
[2024-10-02 12:34] LABS: Alkaline Phosphatase 120 U/L (46-116); Aspartate Aminotransferase 12 U/L (13-40); Glucose 206 mg/dL (74-106); HDL Cholesterol 33 mg/dL (40-59); Triglycerides 227 mg/dL (< 150)
--- NOTE | 2024-10-02 18:34 | DVHINCON2 ---
Date of service: Oct 02, [address] Cuellar Reason for Consultation Evaluation for ICD generator change History of Present Illness This is a 54 year old male known to Dr. Phillips who initially presented with generalized weakness subsequently admitted with atrial fibrillation with RVR. 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 At present, device interrogation was attempted however it appears device is at end-of-life and is without communication. It is of note patient was admitted in June of 2024 and at that time Echocardiogram had revealed a preserved LVEF of 65% (07/06/2024). As the patient presented and is known to have presence of a dual chamber ICD and is now found to be at end-of-life without communication, Electrophysiology services have now been involved by interventional cardiology request for EP aspects of care. Past Medical History Reviewed Past Surgical History Reviewed Family History: Asthma G8 MOTHER G8 BROTHER G8 SISTER Diabetes mellitus G8 MOTHER Other blood disorders G8 MOTHER Allergies: Coded Allergies: Penicillins (Verified Allergy, Unknown, 06/10/21) Home Meds Active Scripts Rivaroxaban (XARELTO) 10 Mg Tab, 1 TAB PO DAILY, #30 TAB Prov:TED JAMESON DO 10/04/24 Lisinopril (Lisinopril) 10 Mg Tab, 10 MG PO DAILY for 90 Days, #90 TAB Prov:TED JAMESON DO 10/04/24 Dapagliflozin Propanediol (Farxiga) 10 Mg Tab, 10 MG PO DAILY, #60 TAB Prov:TED JAMESON DO 10/04/24 Atorvastatin Calcium (ATORVASTATIN CALCIUM) 20 Mg Tab, 1 TAB PO HS, #30 TAB 2 Refills Prov:TED JAMESON DO 10/04/24 Sitagliptin Phosphate (Januvia) 100 Mg Tab, 1 TAB PO DAILY, #30 TAB 5 Refills Prov:TED JAMESON DO 10/04/24 Amiodarone HCl (Amiodarone HCl) 200 Mg Tab, 200 MG PO BID for 30 Days, #60 TAB 1 Refill Prov:TED JAMESON DO 10/04/24 Doxycycline (Monohydrate) (Doxycycline) 100 Mg Cap, 100 MG PO BID for 4 Days, #8 CAP 0 Refills Prov:TED JAMESON DO 10/04/24 Furosemide (Lasix) 80 Mg Tab, 80 TAB PO DAILY, #90 TAB 1 Refill Prov:TED JAMESON DO 10/04/24 Reported Medications Semaglutide (Ozempic) 2 Mg/3 Ml Inj, QWEEKLY 10/01/24 Metformin Hydrochloride (Metformin Hcl) 500 Mg Tab, 1000 MG PO BID 10/01/24 Aspirin (Aspir-81) 81 Mg Tab, 1 TAB PO DAILY, #30 TAB 5 Refills 06/11/21 Levetiracetam (KEPPRA TABLET) 500 Mg Tb, 500 MG PO BID, TAB 06/11/21 Hydralazine Hcl (Hydralazine Hcl) 50 Mg Tab, 25 MG PO TID, TAB 06/11/21 Spironolactone (Spironolactone) 25 Mg Tab, 1 TAB PO BID, #90 TAB 1 Refill 06/11/21 Carvedilol (Carvedilol) 12.5 Mg Tab, 1 TAB PO BID, #180 TAB 1 Refill 06/11/21 Allopurinol (ZYLOPRIM TABLET) 100 Mg Tb, 1 TAB PO DAILY, #30 TAB 5 Refills 06/11/21 Albuterol Sulfate (Albuterol Sulfate Hfa) 108 Mcg/Act Aer, 108 MCG IN, AER 06/11/21 Discontinued Reported Medications Amiodarone Hcl (Amiodarone Hcl) 200 Mg Tab, 1 TAB PO DAILY, #90 TAB 1 Refill 06/11/21 Hydrochlorothiazide (Hydrochlorothiazide) 25 Mg Tab, 1 TAB PO DAILY, #30 TAB 5 Refills 06/11/21 Current Medications Current Medications Medications (Trade) Dose Ordered Sig/Ju Route PRN Reason Start Time Stop Time Status Last Admin Lorazepam (Ativan Inj) 1 mg Q2HP PRN IV SEIZURES 10/02/24 01:45 Levetiracetam (Keppra Tablet) 500 mg BID PO 10/02/24 10:00 10/02/24 09:42 Furosemide (Lasix Injection) 40 mg BIDD IV 10/02/24 22:00 Review of Systems A 14-point review of systems is negative unless otherwise noted above Vital Signs Vital Signs Date Time Temp Pulse Resp B/P (MAP) Pulse Ox O2 Delivery O2 Flow Rate FiO2 10/02/24 18:28 85 20 99 10/02/24 18:22 Nasal Cannula* 2 28 10/02/24 17:00 97.7 147/91 (109) 97.7 Physical Exam Heart: S1 and S2 present. The patient is in atrial fibrillation with RVR Lungs: Scattered rhonchi. Abdomen: Benign. Extremities: Distal pulses palpable, 2+. With evidence for minimal peripheral edema Labs/Diagnostic Data Labs Test 10/02/24 16:59 10/02/24 11:50 09/30/24 06:15 09/30/24 02:27 Range/Units POC Glucose 157 H 70-106 mg/dl White Blood Count 6.6 # 4.4-10.8 10^3/uL Red Blood Count 5.40 4.5-5.90 10^6/uL Hemoglobin 15.3 13.5-17.5 g/dL Hematocrit 45.7 41.0-53.0 % Mean Corpuscular Volume 84.6 80.0-100.0 fL Mean Corpuscular Hemoglobin 28.4 28.0-32.0 pg Mean Corpuscular Hemoglobin Concent 33.5 32.0-36.0 g/dL Red Cell Distribution Width 15.2 H 11.8-14.3 % Platelet Count 190 140-450 10^3/uL Mean Platelet Volume 7.2 6.9-10.8 fL Neutrophils (%) (Auto) 59.1 37.0-80.0 % Lymphocytes (%) (Auto) 29.5 10.0-50.0 % Monocytes (%) (Auto) 8.2 0.0-12.0 % Eosinophils (%) (Auto) 1.6 0.0-7.0 % Basophils (%) (Auto) 1.6 0.0-2.0 % Neutrophils # (Auto) 3.9 1.6-8.6 10 ^3/uL Lymphocytes # (Auto) 1.9 0.4-5.4 10 ^3/uL Monocytes # (Auto) 0.5 0-1.3 10 ^3/uL Eosinophils # (Auto) 0.1 0-0.8 10 ^3/uL Basophils # (Auto) 0.1 0-0.2 10 ^3/uL Nucleated Red Blood Cells 0.1 % Prothrombin Time 10.8 9.3-11.8 sec Prothrombin Time INR 1.02 0.9-1.15 Sodium Level 140 136-145 mmol/L Potassium Level 3.9 3.5-5.1 mmol/L Chloride Level 101 98-107 mmol/L Carbon Dioxide Level 31 20-31 mmol/L Anion Gap 8 5-15 Blood Urea Nitrogen 15 9-23 mg/dL Creatinine 1.28 0.700-1.30 mg/dL Glomerular Filtration Rate Calc 67 >90 mL/min BUN/Creatinine Ratio 11.7 10.0-20.0 Serum Glucose 206 H 74-106 mg/dL Hemoglobin A1c 9.9 H <5.7 % A1C Calcium Level 9.7 8.7-10.4 mg/dL Total Bilirubin 0.4 0.2-1.0 mg/dL Aspartate Amino Transferase (AST) 12 L 13-40 U/L Alanine Aminotransferase (ALT) 10 7-40 U/L Alkaline Phosphatase 120 H 46-116 U/L Total Protein 7.0 5.7-8.2 g/dL Albumin 4.3 3.2-4.8 g/dL Triglycerides Level 227 H < 150 mg/dL Cholesterol Level 148 < 200 mg/dL LDL Cholesterol 83 < 100 mg/dL HDL Cholesterol 33 L 40-59 mg/dL Urine Color Light-yellow Yellow Urine Clarity Clear Clear Urine pH 5.0 5.0-9.0 Urine Specific [place] 1.015 1.001-1.035 Urine Protein Negative Negative Urine Ketones Negative Negative Urine Blood Negative Negative /uL Urine Nitrite Negative Negative Urine Bilirubin Negative Negative Urine Urobilinogen Normal Negative mg/dL Urine Leukocyte Esterase Negative Negative /uL Urine RBC None seen 0 - 3 /hpf Urine Microscopic WBC < 1 0-3 /HPF Urine Squamous Epithelial Cells Few <5 /hpf Urine Bacteria None seen None Seen /hpf Urine Hyaline Casts Mod 0 - 2 /lpf Urine Glucose Normal Normal mg/dL Troponin I High Sensitivity 39 </=54 ng/L Test 09/29/24 23:34 Range/Units Activated Partial Thromboplast Time 30.0 24.5-34.5 SEC Magnesium Level 1.5 L 1.6-2.6 mg/dL B-Type Natriuretic Peptide 20.77 0-100 pg/mL Plan/Recommendation ASSESSMENT: Presence of dual-chamber ICD, at end-of-life and without communication Preserved LVEF of 65% per Echocardiogram (07/06/2024) Atrial fibrillation, with rapid ventricular response Cardiomyopathy with prior history of dual AICD Morbid obesity CHF II Electrophysiology Suggestions for Management: Plan for dual-chamber ICD generator change tentatively this upcoming week Benefits, risks, and alternatives discussed at length which patient is agreeable to plan of care Patient to be consented and remains NPO night prior to procedure Proceed to hold anti-coagulation therapy at present IV Amiodarone for now Proceed with close rate and rhythm surveillance Proceed with close hemodynamic surveillance Proceed with optimized blood pressure control Transfuse to sustain HGB level above 7.0 Sustain Magnesium level greater than 2.0 Sustain Potassium level greater than 4.0 Follow up renal function and electrolytes Remainder of cardiac management as per Interventional Cardiology Management of co-morbidities as per primary team Management in telemetry Will proceed to follow from a cardiac perspective Further recommendations per clinical progression All available diagnostic labs, EKG's, and images were personally reviewed Plan of care discussed with and agreed upon by patient / primary RN Prognosis: Guarded Thank you for allowing me to participate in the care of this patient. Further recommendations based on patients clinical course and progression, primary attending, and other consultants. Will continue to follow with primary attending. If you have any questions or concerns, please do not hesitate to contact me. A total of 75 minutes was spent reviewing the patient record, examining the patient, making a diagnostic and therapeutic plan, discussing this plan with medical personnel, following up on diagnostic studies and following the patient for clinical stability excluding any and all procedures. At least 50% of this t ajay was spent in direct, [id number] contact. Plan discussed with: Patient (Patient and Primary RN) Plan discussed with: Patient (Patient and Primary RN ) CORAZON ORTEGA MD Oct 02, 2024 18:34
[2024-10-02] MEDS: FUROSEMIDE 40 MG/4 ML VIAL IV SCH (21:17)
[2024-10-03] VITALS (20 sets, daily range): BP systolic 128–152; BP diastolic 77–97; PULSE 75–106; RESP 12–20; TEMP 97.6–98.1; O2SAT 92–100
[2024-10-03] MEDS: VANCOMYCIN HCL 1000 MG VL ONE ×3 (07:29→16:21)
[2024-10-03] MEDS: LIDOCAINE 2%HCL (LOCAL ANESTH.) INJ 20ML MDV ONE ×5 (07:30→16:39)
[2024-10-03] MEDS: fentaNYL CITRATE 100 MCG/2 ML VL ONE ×3 (07:30→17:15)
[2024-10-03] MEDS: MIDAZOLAM HCL 2MG/2ML 2ml VIAL (1mg/ml) ONE ×2 (07:30→16:00)
[2024-10-03] MEDS: VANCOMYCIN 1GM/200ML PM 250 ML IV ONE ×3 (07:30→17:07)
--- NOTE | 2024-10-03 13:16 | DVHPN2 ---
Progress Note - Dictate Date Seen: Oct 03, 2024 Medical Necessity Reason Pt with a Central, PICC or Fol: No Subjective Patient resting comfortably. Discussed plan for PPM battery replacement. vital signs Vital Sign Date Time Temp Pulse Resp B/P (MAP) Pulse Ox O2 Delivery O2 Flow Rate FiO2 10/03/24 11:49 90 20 99 10/03/24 11:43 Nasal Cannula 2.0 10/03/24 11:43 28 10/03/24 10:27 142/77 10/03/24 09:00 97.6 97.6 Total Intake and Output 10/02/24 10/02/24 10/03/24 15:00 23:00 07:00 Intake Total 585 ml 800 ml 540 ml Output Total 750 ml 1400 ml 1150 ml Balance -165 ml -600 ml -610 ml medications Current Medications Medications Dose Ordered Sig/Ju Route Start Time Stop Time Status Last Admin Dose Admin Nitroglycerin 0.4 mg Q5MINP PRN SL 09/30/24 01:15 Morphine Sulfate 2 mg Q30M PRN IV 09/30/24 01:15 Diagnostic Test (Pha) 1 strip Q6HR 09/30/24 06:00 10/03/24 12:00 1 STRIP Insulin Human Regular Q6HR SC 09/30/24 06:00 10/03/24 12:05 6 UNITS Dextrose 50 ml UD PRN IV 09/30/24 01:15 Albuterol 2.5 mg Q6HR NEB 09/30/24 06:00 10/03/24 11:43 2.5 MG Ipratropium [place] 0.5 mg Q6HP NEB 09/30/24 06:00 10/03/24 11:43 0.5 MG Acetaminophen 650 mg Q4HP PRN PO 10/01/24 13:00 10/02/24 21:16 650 MG Lorazepam 1 mg Q2HP PRN IV 10/02/24 01:45 Levetiracetam 500 mg BID PO 10/02/24 10:00 10/03/24 09:30 500 MG Furosemide 40 mg BIDD IV 10/02/24 22:00 10/03/24 05:51 40 MG Amiodarone HCl 200 mg Q12HR PO 10/03/24 11:45 UNV objective General: Obese Lungs: CTA Cards: RRR. laboratory and microbiology Laboratory Tests 10/02/24 11:50 Test 10/02/24 11:50 Range/Units Serum Glucose 206 H 74-106 mg/dL Assessment/Plan 1. CHF Exacerbation 2. Atrial Fibrillation with RVR, now rate controlled 3. Morbid Obesity 4. Type 2 DM 5. End Stage CHF last reported EF 20-25%, with AICD 6. Medication Non-Compliance Plan: -Cardiology consulted, Dr. Cuellar. -Amiodarone drip discontinued, rate controlled. Will plan to transition to PO. -Lasix per OCT -Strict I/O -PPM battery replacement planned for Thursday. Hold DVT prophylaxis and anticoagulation. Patient overdue since 02/2023. -Insulin sliding scale -Patient needs follow up for sleep apnea/CPAP -Full Code Plan discussed with: Patient TRINOTED Savage DO Oct 03, 2024 13:16
[2024-10-03] MEDS: AMIODARONE HCL 200 MG TAB PO SCH (14:31)
--- NOTE | 2024-10-03 16:12 | DVHPN2 ---
Progress Note Date Seen: Oct 03, 2024 Medical Necessity Reason Pt with a Central, PICC or Fol: No Subjective Other Systems: EP consult for device change out Objective vital signs Vital Sign Date Time Temp Pulse Resp B/P (MAP) Pulse Ox O2 Delivery O2 Flow Rate FiO2 10/03/24 13:00 97.6 92 17 146/96 (113) 97 97.6 10/03/24 11:43 Nasal Cannula 2.0 10/03/24 11:43 28 Total Intake and Output 10/02/24 10/02/24 10/03/24 15:00 23:00 07:00 Intake Total 585 ml 800 ml 540 ml Output Total 750 ml 1400 ml 1150 ml Balance -165 ml -600 ml -610 ml medications Current Medications Medications Dose Ordered Sig/Ju Route Start Time Stop Time Status Last Admin Dose Admin Nitroglycerin 0.4 mg Q5MINP PRN SL 09/30/24 01:15 Morphine Sulfate 2 mg Q30M PRN IV 09/30/24 01:15 Diagnostic Test (Pha) 1 strip Q6HR 09/30/24 06:00 10/03/24 12:00 1 STRIP Insulin Human Regular Q6HR SC 09/30/24 06:00 10/03/24 12:05 6 UNITS Dextrose 50 ml UD PRN IV 09/30/24 01:15 Albuterol 2.5 mg Q6HR NEB 09/30/24 06:00 10/03/24 11:43 2.5 MG Ipratropium [place] 0.5 mg Q6HP NEB 09/30/24 06:00 10/03/24 11:43 0.5 MG Acetaminophen 650 mg Q4HP PRN PO 10/01/24 13:00 10/02/24 21:16 650 MG Lorazepam 1 mg Q2HP PRN IV 10/02/24 01:45 Levetiracetam 500 mg BID PO 10/02/24 10:00 10/03/24 09:30 500 MG Furosemide 40 mg BIDD IV 10/02/24 22:00 10/03/24 05:51 40 MG Amiodarone HCl 200 mg Q12HR PO 10/03/24 11:45 10/03/24 14:31 200 MG Examination: GENERAL:Abnormal, HEENT:Abnormal, LUNGS:Abnormal, CVS:Abnormal, ABDOMEN:Abnormal laboratory and microbiology Laboratory Tests 10/02/24 11:50 Test 10/02/24 11:50 Range/Units Serum Glucose 206 H 74-106 mg/dL Problem List/Assessment/Plan Problem List/Assessment/Plan morbid obesity NOAH non compliance afib rvr hold doac plan for device change out last year EF was preserved in june , proceed with change out fu with his cards after DC hold doac until cleared by EP Plan discussed with: Patient Date of Service: Oct 03, 2024 Billing Provider: DEMARIO HSIEH MD Common Visit Codes: NOT BILLABLE DEMARIO HSIEH MD Oct 03, 2024 16:12
[2024-10-03] MEDS: HYDROmorphone HCL 2 MG/ML VL/or syr ONE (16:47)
--- NOTE | 2024-10-03 16:59 | DVHPN2 ---
Progress Note - Dictate Date Seen: Oct 03, 2024 Medical Necessity Reason Pt with a Central, PICC or Fol: No Subjective Seen and examined at the bedside within telemetry. Chart reviewed. vital signs Vital Sign Date Time Temp Pulse Resp B/P (MAP) Pulse Ox O2 Delivery O2 Flow Rate FiO2 10/03/24 13:00 97.6 92 17 146/96 (113) 97 97.6 10/03/24 11:43 Nasal Cannula 2.0 10/03/24 11:43 28 Total Intake and Output 10/02/24 10/02/24 10/03/24 15:00 23:00 07:00 Intake Total 585 ml 800 ml 540 ml Output Total 750 ml 1400 ml 1150 ml Balance -165 ml -600 ml -610 ml medications Current Medications Medications Dose Ordered Sig/Ju Route Start Time Stop Time Status Last Admin Dose Admin Nitroglycerin 0.4 mg Q5MINP PRN SL 09/30/24 01:15 Morphine Sulfate 2 mg Q30M PRN IV 09/30/24 01:15 Diagnostic Test (Pha) 1 strip Q6HR 09/30/24 06:00 10/03/24 12:00 1 STRIP Insulin Human Regular Q6HR SC 09/30/24 06:00 10/03/24 12:05 6 UNITS Dextrose 50 ml UD PRN IV 09/30/24 01:15 Albuterol 2.5 mg Q6HR NEB 09/30/24 06:00 10/03/24 11:43 2.5 MG Ipratropium [place] 0.5 mg Q6HP NEB 09/30/24 06:00 10/03/24 11:43 0.5 MG Acetaminophen 650 mg Q4HP PRN PO 10/01/24 13:00 10/02/24 21:16 650 MG Lorazepam 1 mg Q2HP PRN IV 10/02/24 01:45 Levetiracetam 500 mg BID PO 10/02/24 10:00 10/03/24 09:30 500 MG Furosemide 40 mg BIDD IV 10/02/24 22:00 10/03/24 05:51 40 MG Amiodarone HCl 200 mg Q12HR PO 10/03/24 11:45 10/03/24 14:31 200 MG laboratory and microbiology Laboratory Tests 10/02/24 11:50 Test 10/02/24 11:50 Range/Units Serum Glucose 206 H 74-106 mg/dL Assessment/Plan ASSESSMENT: Presence of dual-chamber ICD, at end-of-life and without communication Preserved LVEF of 65% per Echocardiogram (09/05/2023) Atrial fibrillation, with rapid ventricular response Cardiomyopathy with prior history of dual AICD Morbid obesity CHF II Electrophysiology Suggestions for Management: Plan for dual-chamber ICD generator change with Dr. Westbrook (10/03/2024) Benefits, risks, and alternatives discussed at length which patient is agreeable to plan of care Patient to be consented and remains NPO status during the interim Transition to oral Amiodarone 200mg po twice daily for now Proceed to hold anti-coagulation therapy at present Proceed with close rate and rhythm surveillance Proceed with close hemodynamic surveillance Proceed with optimized blood pressure control Transfuse to sustain HGB level above 7.0 Sustain Magnesium level greater than 2.0 Sustain Potassium level greater than 4.0 Follow up renal function and electrolytes Remainder of cardiac management as per Interventional Cardiology Management of co-morbidities as per primary team Management in telemetry Will proceed to follow from a cardiac perspective Further recommendations per clinical progression All available diagnostic labs, EKG's, and images were personally reviewed Patient's status, findings, and plan of care was reviewed and discussed with supervising physician Dr. Westbrook, who is in agreement with current plan of care. Plan of care discussed with and agreed upon by patient / primary RN Prognosis: Guarded Thank you for allowing me to participate in the care of this patient. Further recommendations based on patients clinical course and progression, primary attending, and other consultants. Will continue to follow with primary attending. If you have any questions or concerns, please do not hesitate to contact me. A total of 75 minutes was spent reviewing the patient record, examining the patient, making a diagnostic and therapeutic plan, discussing this plan with medical personnel, following up on diagnostic studies and following the patient for clinical stability excluding any and all procedures. At least 50% of this time was spent in direct, [id number] contact. Plan discussed with: Patient (Patient and Primary RN) HEAVENDINESH Pedro ASLAS Oct 03, 2024 16:58
[2024-10-03] MEDS: GELATIN 1 SPONGE SIZE 50 TOP ONE (17:10)
[2024-10-03] MEDS: hydrALAZINE HCL 20 MG/ML VL ONE (17:14)
[2024-10-03] MEDS ORDERED: VANCOMYCIN 1GM/200ML PM 250 ML IV SCH (21:00)
--- NOTE | 2024-10-03 21:07 | DVHOP2 ---
Operative Report Procedure 10/03/24 Procedure Note Replacement of AICD generator INDICATIONS: 1. End of life of the dual ICD generator. Patient has not checked the device for two years 2. Cardiomyopathy with prior history of dual AICD, 3. CHF II 4. Conscious sedation with Fentanyl and versed for one hour PROCEDURES: 1. Explantation of the old dual chamber implantable defibrillator generator BS. RA lead non MRI 2. Implantation of the new dual implantable generator [employer]. 3. Fluoroscopy images and interpretation. 4. Interrogation and programming of the device. 5. Conscious sedation with fentanyl and versed for one hour PROCEDURE IN DETAILS: After obtaining informed consent with explanation of risks, benefits, and alternatives, the patient agreed upon the planned procedure, replacement of the dual implantable defibrillator generator. Patient understood and agreed the new company is [employer]. Under standard fashion, local and systemic anesthetic, left deltopectoral area was prepped and draped. Left deltopectoral pocket was opened and old dual implantable defibrillator from [employer] was removed from the pocket, it was very difficult to reach to the device due to morbid obesity and also, they implanted the device unnecessarily sub muscular. The new dual implantable defibrillator from [employer] was connected to the leads. The pocket was irrigated with antibiotic solution. Antibiotic powder was poured into the pocket. The skin was closed in 2 layers and at the end was stapled. Atrial lead and RV lead connected to new dual AICD generator. CONCLUSION: Status post successful replacement of the dual implantable defibrillator secondary to end of life of the dual implantable defibrillator. RECOMMENDATIONS: Continue with antibiotic therapy, doxycycline 100 mg twice a day. CORAZON ORTEGA MD Oct 03, 2024 21:06
[2024-10-03] MEDS: DOXYCYCLINE 100 MG TAB/CAP PO SCH (21:48)
[2024-10-04] VITALS (13 sets, daily range): BP systolic 120–143; BP diastolic 72–88; PULSE 102–124; RESP 18–20; TEMP 36.5; O2SAT 96–100
[2024-10-04] MEDS: VANCOMYCIN 1GM/200ML PM 200 ML IV SCH (03:55)
--- NOTE | 2024-10-04 07:02 | DVH ---
CHEST RADIOGRAPH Indication: s/p pacemaker generator change Technique: Single frontal view of the chest was obtained Comparison: None FINDINGS: Lines and Tubes: AICD noted. Lungs: Pulmonary vascular congestion noted. Pleura: No effusion. No pneumothorax. Cardiomediastinal contours: Cardiomegaly. Bones: No acute osseous abnormality. IMPRESSION: 1. Pulmonary vascular congestion.
[2024-10-04] MEDS: HYDROcodone-ACET 5/325MG TAB PO PRN (07:53)
[2024-10-04] MEDS: DOXYCYCLINE 100 MG TAB/CAP PO SCH (07:53)
[2024-10-04 08:03] LABS: Basophils # (auto) 0 10 ^3/uL (0-0.2); Basophils % (auto) 0.2 % (0.0-2.0); Eosinophils # (auto) 0.2 10 ^3/uL (0-0.8); Eosinophils % (auto) 4.1 % (0.0-7.0); Hematocrit 49.1 % (41.0-53.0); Lymphocytes # (auto) 0.6 10 ^3/uL (0.4-5.4); Lymphocytes % (auto) 11.7 % (10.0-50.0); Mean Corpuscular Hgb Conc. 34.6 g/dL (32.0-36.0); Mean Corpuscular Volume 83.8 fL (80.0-100.0); Monocytes # (auto) 0.2 10 ^3/uL (0-1.3); Monocytes % (auto) 3.8 % (0.0-12.0); Neutrophils # (auto) 4.3 10 ^3/uL (1.6-8.6); Neutrophils % (auto) 80.2 % (37.0-80.0); Nucleated Red Blood Cells % 0.1 %; Platelet Count (auto) 187 10^3/uL (140-450); Red Blood Cells 5.86 10^6/uL (4.5-5.90); Red Cell Distribution Width 15.6 % (11.8-14.3); White Blood Cell 5.4 10^3/uL (4.4-10.8)
[2024-10-04 08:36] LABS: Alanine Aminotransferase 11 U/L (7-40); Albumin 4.2 g/dL (3.2-4.8); Anion Gap 8 (5-15); Aspartate Aminotransferase 14 U/L (13-40); BUN/Creatinine Ratio 12.6 (10.0-20.0); Blood Urea Nitrogen 15 mg/dL (9-23); Calcium 9.8 mg/dL (8.7-10.4); Carbon Dioxide 31 mmol/L (20-31); Potassium 3.9 mmol/L (3.5-5.1)
[2024-10-04 08:37] LABS: Total Protein 6.8 g/dL (5.7-8.2)
[2024-10-04] MEDS: dilTIAZem 25 MG/5 ML VIAL IV ONE (08:52)
[2024-10-04 08:56] LABS: Alkaline Phosphatase 125 U/L (46-116); Chloride 97 mmol/L (98-107); Glucose 232 mg/dL (74-106); Sodium 136 mmol/L (136-145)
[2024-10-04] MEDS ORDERED: DOXY100C79 PO (10:37)
[2024-10-04] MEDS ORDERED: FURO1TAB32 PO (10:37)
[2024-10-04] MEDS ORDERED: AMIO200T13 PO (10:38)
[2024-10-04] MEDS ORDERED: LISI10TA34 PO (10:39)
[2024-10-04] MEDS ORDERED: RIVA10TA PO (10:39)
[2024-10-04] MEDS ORDERED: DAPA1TAB4 PO (10:39)
[2024-10-04] MEDS ORDERED: ATOR20TA50 PO (10:39)
[2024-10-04] MEDS ORDERED: SITA100T7 PO (10:39)
--- NOTE | 2024-10-04 10:54 | DVHPN2 ---
Progress Note - Dictate Date Seen: Oct 04, 2024 Medical Necessity Reason Pt with a Central, PICC or Fol: No Subjective Seen and examined at the bedside within telemetry. Chart reviewed. vital signs Vital Sign Date Time Temp Pulse Resp B/P (MAP) Pulse Ox O2 Delivery O2 Flow Rate FiO2 10/04/24 09:45 96 Nasal Cannula 2.0 10/04/24 09:45 28 10/04/24 09:11 97.7 109 20 120/72 (88) 97.7 Total Intake and Output 10/03/24 10/03/24 10/04/24 15:00 23:00 07:00 Intake Total 200 ml 480 ml 950 ml Output Total 250 ml 1200 ml 690 ml Balance -50 ml -720 ml 260 ml medications Current Medications Medications Dose Ordered Sig/Ju Route Start Time Stop Time Status Last Admin Dose Admin Nitroglycerin 0.4 mg Q5MINP PRN SL 09/30/24 01:15 Morphine Sulfate 2 mg Q30M PRN IV 09/30/24 01:15 Diagnostic Test (Pha) 1 strip Q6HR 09/30/24 06:00 10/04/24 05:50 1 STRIP Insulin Human Regular Q6HR SC 09/30/24 06:00 10/04/24 05:50 6 UNITS Dextrose 50 ml UD PRN IV 09/30/24 01:15 Albuterol 2.5 mg Q6HR NEB 09/30/24 06:00 10/04/24 05:39 2.5 MG Ipratropium [place] 0.5 mg Q6HP NEB 09/30/24 06:00 10/04/24 05:39 0.5 MG Acetaminophen 650 mg Q4HP PRN PO 10/01/24 13:00 10/04/24 02:23 650 MG Lorazepam 1 mg Q2HP PRN IV 10/02/24 01:45 Levetiracetam 500 mg BID PO 10/02/24 10:00 10/04/24 07:52 500 MG Furosemide 40 mg BIDD IV 10/02/24 22:00 10/04/24 05:32 40 MG Amiodarone HCl 200 mg Q12HR PO 10/03/24 11:45 10/04/24 07:53 200 MG Doxycycline Monohydrate 100 mg Q12HR PO 10/04/24 10:00 10/04/24 07:53 100 MG Vancomycin HCl 200 ml @ 200 mls/hr Q12H IV 10/04/24 04:00 10/04/24 16:59 10/04/24 03:55 200 MLS/HR Acetaminophen/ Hydrocodone Bitart 1 tab Q4HP PRN PO 10/03/24 17:45 10/04/24 07:53 1 TAB Doxycycline Monohydrate 100 mg Q12HR PO 10/03/24 22:00 10/10/24 22:00 10/03/24 21:48 100 MG Carvedilol 12.5 mg Q12HR PO 10/04/24 10:00 laboratory and microbiology Laboratory Tests 10/04/24 07:18 Test 10/04/24 07:18 Range/Units Serum Glucose 232 H 74-106 mg/dL Assessment/Plan ASSESSMENT: Status post explantation of previously present dual-chamber ICD, at end-of-life and without communication (10/03/2024) Status post implantation of new dual-chamber ICD generator ([employer] 10/03/2024) Preserved LVEF of 65% per Echocardiogram (09/05/2023) Atrial fibrillation, with rapid ventricular response Cardiomyopathy with prior history of dual AICD Morbid obesity CHF II Electrophysiology Suggestions for Management: Status-post dual-chamber ICD generator change with Dr. Westbrook (10/03/2024) Repeat chest imaging post ICD implantation reveals no evidence for pneumothorax To follow up with primary cardiology for staple removal within 7 days of device implantation (Dr. Phillips) Hold anti-coagulation for 7 days post device implantation to reduce chance of intra-pocket bleeding Continue Doxycycline 100mg po bid x 14 doses Status post Vancomycin infusion x 2 doses Dressing clean, dry, and intact Amiodarone 200mg po twice daily for now Resume Carvedilol 12.5mg twice daily Proceed with close rate and rhythm surveillance Proceed with close hemodynamic surveillance Proceed with optimized blood pressure control Transfuse to sustain HGB level above 7.0 Sustain Magnesium level greater than 2.0 Sustain Potassium level greater than 4.0 Follow up renal function and electrolytes Remainder of cardiac management as per Interventional Cardiology Management of co-morbidities as per primary team Management in telemetry Will proceed to follow from a cardiac perspective Further recommendations per clinical progression All available diagnostic labs, EKG's, and images were personally reviewed Patient's status, findings, and plan of care was reviewed and discussed with supervising physician Dr. Westbrook, who is in agreement with current plan of care. Plan of care discussed with and agreed upon by patient / primary RN Prognosis: Guarded Thank you for allowing me to participate in the care of this patient. Further recommendations based on patients clinical course and progression, primary attending, and other consultants. Will continue to follow with primary attending. If you have any questions or concerns, please do not hesitate to contact me. A total of 75 minutes was spent reviewing the patient record, examining the patient, making a diagnostic and therapeutic plan, discussing this plan with medical personnel, following up on diagnostic studies and following the patient for clinical stability excluding any and all procedures. At least 50% of this time was spent in direct, [id number] contact. Plan discussed with: Patient (Patient and Primary RN ) DINESH COLLADO Oct 04, 2024 10:54
[2024-10-04] MEDS ORDERED: METOPROLOL TARTRATE 1MG/1ML-5ML VIAL IV PRN (11:15)
[2024-10-04] MEDS: ONDANSETRON HCL 4 MG/2 ML VIAL IV ONE (11:40)
[2024-10-04] MEDS: FAMOTIDINE (10MG/ML) 2ML VL IV ONE (11:40)
[2024-10-04] MEDS: LIDOCAINE VISCOUS 2% 15ML UD MT ONE (11:41)
[2024-10-04] MEDS: CARVEDILOL 12.5 MG TAB PO SCH (11:41)
--- NOTE | 2024-10-04 15:42 | DVHDS2 ---
Discharge Summary Date of Admission Sep 30, 2024 at 01:14 Date of Discharge: Oct 04, 2024 Labs/Diagnostic Data: Laboratory Results Test 10/04/24 12:12 10/04/24 07:18 10/02/24 11:50 09/30/24 06:15 POC Glucose 274 mg/dl (70-106) White Blood Count 5.4 10^3/uL (4.4-10.8) Red Blood Count 5.86 10^6/uL (4.5-5.90) Hemoglobin 17.0 g/dL (13.5-17.5) Hematocrit 49.1 % (41.0-53.0) Mean Corpuscular Volume 83.8 fL (80.0-100.0) Mean Corpuscular Hemoglobin 29.0 pg (28.0-32.0) Mean Corpuscular Hemoglobin Concent 34.6 g/dL (32.0-36.0) Red Cell Distribution Width 15.6 % (11.8-14.3) Platelet Count 187 10^3/uL (140-450) Mean Platelet Volume 7.2 fL (6.9-10.8) Neutrophils (%) (Auto) 80.2 % (37.0-80.0) Lymphocytes (%) (Auto) 11.7 % (10.0-50.0) Monocytes (%) (Auto) 3.8 % (0.0-12.0) Eosinophils (%) (Auto) 4.1 % (0.0-7.0) Basophils (%) (Auto) 0.2 % (0.0-2.0) Neutrophils # (Auto) 4.3 10 ^3/uL (1.6-8.6) Lymphocytes # (Auto) 0.6 10 ^3/uL (0.4-5.4) Monocytes # (Auto) 0.2 10 ^3/uL (0-1.3) Eosinophils # (Auto) 0.2 10 ^3/uL (0-0.8) Basophils # (Auto) 0 10 ^3/uL (0-0.2) Nucleated Red Blood Cells 0.1 % Sodium Level 136 mmol/L (136-145) Potassium Level 3.9 mmol/L (3.5-5.1) Chloride Level 97 mmol/L (98-107) Carbon Dioxide Level 31 mmol/L (20-31) Anion Gap 8 (5-15) Blood Urea Nitrogen 15 mg/dL (9-23) Creatinine 1.19 mg/dL (0.700-1.30) Glomerular Filtration Rate Calc 73 mL/min (>90) BUN/Creatinine Ratio 12.6 (10.0-20.0) Serum Glucose 232 mg/dL (74-106) Calcium Level 9.8 mg/dL (8.7-10.4) Total Bilirubin 1.0 mg/dL (0.2-1.0) Aspartate Amino Transferase (AST) 14 U/L (13-40) Alanine Aminotransferase (ALT) 11 U/L (7-40) Alkaline Phosphatase 125 U/L (46-116) Total Protein 6.8 g/dL (5.7-8.2) Albumin 4.2 g/dL (3.2-4.8) Prothrombin Time 10.8 sec (9.3-11.8) Prothrombin Time INR 1.02 (0.9-1.15) Hemoglobin A1c 9.9 % A1C (<5.7) Triglycerides Level 227 mg/dL (< 150) Cholesterol Level 148 mg/dL (< 200) LDL Cholesterol 83 mg/dL (< 100) HDL Cholesterol 33 mg/dL (40-59) Urine Color Light-yellow (Yellow) Urine Clarity Clear (Clear) Urine pH 5.0 (5.0-9.0) Urine Specific [place] 1.015 (1.001-1.035) Urine Protein Negative (Negative) Urine Ketones Negative (Negative) Urine Blood Negative /uL (Negative) Urine Nitrite Negative (Negative) Urine Bilirubin Negative (Negative) Urine Urobilinogen Normal mg/dL (Negative) Urine Leukocyte Esterase Negative /uL (Negative) Urine RBC None seen /hpf (0 - 3) Urine Microscopic WBC < 1 /HPF (0-3) Urine Squamous Epithelial Cells Few /hpf (<5) Urine Bacteria None seen /hpf (None Seen) Urine Hyaline Casts Mod /lpf (0 - 2) Urine Glucose Normal mg/dL (Normal) Test 09/30/24 02:27 09/29/24 23:34 Troponin I High Sensitivity 39 ng/L (</=54) Activated Partial Thromboplast Time 30.0 SEC (24.5-34.5) Magnesium Level 1.5 mg/dL (1.6-2.6) B-Type Natriuretic Peptide 20.77 pg/mL (0-100) Other Laboratory Tests 10/04/24 07:18 Brief Hx & Hospital Course: Patient is a 54-year-old male with HFpEF, atrial fibrillation with dual-chamber pacemaker placed, type 2 diabetes, morbid obesity who presented to the ER with A-fib RVR. Patient was started on amiodarone and subsequently rate controlled. Patient has a history of noncompliance with following up with cardiology. Patient was supposed to have his pacemaker battery replaced over 9 months ago but was not answering follow-up appointment phone calls. Patient was evaluated by cardiology and underwent successful pacemaker battery replacement. Patient was treated with Lasix 40 mg IV 3 times daily and de-escalated to 40 mg IV twice daily. Patient's TTE last TTE was done 09/05/2023 and noted to have LVEF of 65%. Patient was discharged on Lasix 80 mg p.o. daily as he was taking at home. He was discharged on amiodarone 2 mg twice daily. His home medications were resumed. Patient is to follow-up with cardiology. [facility] case management to arrange follow-up appointments. Patient will need to follow up as well for sleep study/CPAP given history of atrial fibrillation. Condition at Discharge: Good Final Diagnosis/Problems List Dual Chamber Pacemaker Replacement Secondary Diagnosis: Morbid Obesity Type 2 Diabetes HFpEF Atrial Fibrillation Obesity Hypoventilation Syndrome Discharge Disposition: Home Discharge Instruct/Medications Diet: Consistent carbohydrate, Cardiac 2g Na,low cholest Activity: No Restrictions, As Tolerated Follow Up/Referral: Follow up with cardiology. Discharge Statement: "Patient was advised to return to the ER or call 911 if any headaches, dizziness, shortness of breath, chest pain, abdominal pain, bleeding, fevers, or worsening of medical condition. Patient was counseled about treatment plan, medications, possible side effects, patientverbalized understanding. All questions were answered to the best of my ability. This discharge took greater then 30 minutes in planning, reviewing documentation, counseling the patient, and discussing with other team members." ASSESSMENT ASSESSMENT Assessment Dual Chamber Pacemaker Replacement TED JAMESON DO Oct 04, 2024 15:42
== END 2024-10-04 15:30 | disposition home or self-care (01) | DRG 245 ==
LOC: EDBD 23:12 → ER 23:12 → TELE 09-30 01:14 → TELE-CENTR 09-30 23:23 → OVERFLOW 10-04 14:51 → CENTRAL 10-04 15:01
PROVIDERS: ADMIT Internal Medicine; ATTEND Internal Medicine
PROC: 0JPT0PZ Removal of Cardiac Rhythm Related Device from Trunk Subcutaneous Tissue and Fascia, Open Approach (ICD-10-PCS; principal; 2024-10-03)
PROC: 0JH608Z Insertion of Defibrillator Generator into Chest Subcutaneous Tissue and Fascia, Open Approach (ICD-10-PCS; 2024-10-03)
DX: T82.121A Displacement of cardiac pulse generator (battery), initial encounter (principal); Z68.44 Body mass index [BMI] 60.0-69.9, adult; E66.2 Morbid (severe) obesity with alveolar hypoventilation; I50.32 Chronic diastolic (congestive) heart failure; I42.9 Cardiomyopathy, unspecified; I48.91 Unspecified atrial fibrillation; I11.0 Hypertensive heart disease with heart failure; E11.9 Type 2 diabetes mellitus without complications; J44.89 Other specified chronic obstructive pulmonary disease; G40.909 Epilepsy, unspecified, not intractable, without status epilepticus; E83.42 Hypomagnesemia; E78.5 Hyperlipidemia, unspecified; Z79.84 Long term (current) use of oral hypoglycemic drugs; Z91.199 Patient's noncompliance with other medical treatment and regimen due to unspecified reason; Z83.3 Family history of diabetes mellitus; Z82.5 Family history of asthma and other chronic lower respiratory diseases; Z86.73 Personal history of transient ischemic attack (TIA), and cerebral infarction without residual deficits; Y83.8 Other surgical procedures as the cause of abnormal reaction of the patient, or of later complication, without mention of misadventure at the time of the procedure; Y92.098 Other place in other non-institutional residence as the place of occurrence of the external cause
CPT/HCPCS: 33263; 36415; 71045; 80053; 80061; 81001; 82962; 83036; 83735; 83880; 84484; 85025; 85610; 85730; 86850; 86900; 86901; 93005; 94640; 96365; 96375; 99152; 99291; G0378; J1815; J2250; J2405; J3490

== ENCOUNTER 2024-10-09 05:44 | Emergency (ER) | payer OTHER ==
[~2024-10-09] VITALS: Ht 170.2 cm; Wt 160.0 kg
[~2024-10-09 05:44] MED LIST changes: +AMIO200T13 PO; -AMIO200T33 PO; -ATOR20TA PO; +DOXY100C79 PO; -HYDR25TA4 PO; -ICOS1CAP OR; -LISI-275 PO; +METF-370 PO; -METF500S3 PO; +SEMA2INJ3
--- NOTE | 2024-10-09 07:01 | ECG ---
[facility] Test Date: 2024-10-09 Test Time: 05:51:31 Pat Name: SANDY SANCHEZ Department: ER Room: Gender: M Setter Induction Heating Equipment: : 1970 Requested By: KATY INIGUEZ Order Number: [id number] Reading MD: Royal Rutherford Measurements Intervals [place] Rate: 99 P: 65 MS: 162 QRS: 107 QRSD: 102 T: 33 QT: 354 QTc: 455 Interpretive Statements Sinus rhythm Right axis deviation Low voltage, precordial leads Consider anterior infarct Electronically Signed On 10-10-2024 8:27:51 PST by Royal Rutherford Please click the below link to view image of tracing.
[2024-10-09 07:10] LABS: Basophils # (auto) 0.1 10 ^3/uL (0-0.2); Basophils % (auto) 0.6 % (0.0-2.0); Eosinophils # (auto) 0.8 10 ^3/uL (0-0.8); Eosinophils % (auto) 8.2 % (0.0-7.0); Hematocrit 44.9 % (41.0-53.0); Hemoglobin 15.2 g/dL (13.5-17.5); Lymphocytes # (auto) 2.5 10 ^3/uL (0.4-5.4); Lymphocytes % (auto) 27.4 % (10.0-50.0); Mean Corpuscular Hemoglobin 28.3 pg (28.0-32.0); Mean Corpuscular Hgb Conc. 33.9 g/dL (32.0-36.0); Mean Corpuscular Volume 83.5 fL (80.0-100.0); Monocytes # (auto) 0.9 10 ^3/uL (0-1.3); Neutrophils # (auto) 4.9 10 ^3/uL (1.6-8.6); Neutrophils % (auto) 53.8 % (37.0-80.0); Nucleated Red Blood Cells % 0.1 %; Platelet Count (auto) 201 10^3/uL (140-450); Red Blood Cells 5.37 10^6/uL (4.5-5.90); Red Cell Distribution Width 15.6 % (11.8-14.3); White Blood Cell 9.1 10^3/uL (4.4-10.8)
[2024-10-09] MEDS: NITROGLYCERIN 0.4 MG SL TAB SL ONE (07:15)
--- NOTE | 2024-10-09 07:20 | ECG ---
[facility] Test Date: 2024-10-09 Test Time: 07:19:13 Pat Name: SANDY SANCHEZ Department: ER Room: Gender: M Clay Roaster: : 1970 Requested By: KATY INIGUEZ Order Number: [id number] Reading MD: Royal Rutherford Measurements Intervals [place] Rate: 95 P: 71 CO: 175 QRS: 107 QRSD: 106 T: 19 QT: 358 QTc: 450 Interpretive Statements Sinus rhythm Right axis deviation Low voltage, precordial leads Consider anterior infarct Electronically Signed On 10-10-2024 8:27:53 PST by Royal Rutherford Please click the below link to view image of tracing.
[2024-10-09 07:24] LABS: Anion Gap 14 (5-15); Calcium 9.7 mg/dL (8.7-10.4); Carbon Dioxide 26 mmol/L (20-31)
[2024-10-09 07:29] LABS: BUN/Creatinine Ratio 7.2 (10.0-20.0)
--- NOTE | 2024-10-09 07:37 | DVH ---
XY CHEST PORTABLE, HISTORY: sob COMPARISON: XY CHEST PORTABLE on DOS: 10/04/24, XY CHEST PORTABLE on DOS: 09/29/24, XY CHEST PORTABLE on DOS: 08/11/24 XY CHEST PORTABLE on DOS: 10/04/24, XY CHEST PORTABLE on DOS: 09/29/24, XY CHEST PORTABLE on DOS: TECHNICAL DATA: 1 view of the chest was obtained. FINDINGS: Lines and tubes: Stable cardiac pacer/defibrillator Cardiomediastinal silhouette: Enlarged Pulmonary vasculature: normal Lung expansion: normal Lung airspace: normal Lung interstitium: normal Pleura: normal Pneumothorax: no Bones: Unremarkable Other: no IMPRESSION: No acute intrathoracic abnormality. Cardiomegaly.
[2024-10-09] MEDS: ASPirin 325 MG TAB PO ONE (07:45)
[2024-10-09] MEDS: ONDANSETRON HCL 4 MG/2 ML VIAL IV ONE (07:46)
[2024-10-09 08:01] VITALS: TEMP 97.9
[2024-10-09 08:02] LABS: Blood Urea Nitrogen 63 mg/dL (9-23); Chloride 94 mmol/L (98-107); Glucose 223 mg/dL (74-106); Potassium 3.5 mmol/L (3.5-5.1); Sodium 134 mmol/L (136-145)
--- NOTE | 2024-10-09 08:09 | ED.PDOC ---
HPI Comments 54M BIBA w/ prior Hx of High Lipids, CHF, COPD, AFIB, Asthma, HTN, DM and using 2L of O2 at home which all may be associated to the c/c of CP. Per EMS, the pt recently had a Pacemaker operation on Thursday of 10/03/23, and ever since then the pt states that he has been having constant substernal CP associated w/ SOB and bilateral Edema. Denies chills, fever, N/V/D, or other associated symptom's, modifiers, or recent injuries or sick contact at this time. Chief Complaint: Chest Pain Time Seen by MD: 07:10 Primary Care Provider: UNKNOWN Reviewed Notes: Nurses Notes, Rug Cleaning Supervisor Notes, Medications, Allergies Allergies: Coded Allergies: Penicillins (Verified Allergy, Unknown, 06/10/21) Home Meds Active Scripts Rivaroxaban (XARELTO) 10 Mg Tab, 1 TAB PO DAILY, #30 TAB Prov:THANIAFIGUEROATED [facility] 10/04/24 Lisinopril (Lisinopril) 10 Mg Tab, 10 MG PO DAILY for 90 Days, #90 TAB Prov:THANIAFIGUEROAETD Savage DO 10/04/24 Dapagliflozin Propanediol (Farxiga) 10 Mg Tab, 10 MG PO DAILY, #60 TAB Prov:THANIATED MARTI 10/04/24 Atorvastatin Calcium (ATORVASTATIN CALCIUM) 20 Mg Tab, 1 TAB PO HS, #30 TAB 2 Refills Prov:THANIATED MARTI 10/04/24 Sitagliptin Phosphate (Januvia) 100 Mg Tab, 1 TAB PO DAILY, #30 TAB 5 Refills Prov:THANIATED MARTI 10/04/24 Amiodarone HCl (Amiodarone HCl) 200 Mg Tab, 200 MG PO BID for 30 Days, #60 TAB 1 Refill Prov:THANIATED MARTI 10/04/24 Doxycycline (Monohydrate) (Doxycycline) 100 Mg Cap, 100 MG PO BID for 4 Days, #8 CAP 0 Refills Prov:THANIATED MARTI 10/04/24 Furosemide (Lasix) 80 Mg Tab, 80 TAB PO DAILY, #90 TAB 1 Refill Prov:THANIAFIGUEROATED Savage 10/04/24 Reported Medications Semaglutide (Ozempic) 2 Mg/3 Ml Inj, QWEEKLY 10/01/24 Metformin Hydrochloride (Metformin Hcl) 500 Mg Tab, 1000 MG PO BID 10/01/24 Aspirin (Aspir-81) 81 Mg Tab, 1 TAB PO DAILY, #30 TAB 5 Refills 06/11/21 Levetiracetam (KEPPRA TABLET) 500 Mg Tb, 500 MG PO BID, TAB 06/11/21 Hydralazine Hcl (Hydralazine Hcl) 50 Mg Tab, 25 MG PO TID, TAB 06/11/21 Spironolactone (Spironolactone) 25 Mg Tab, 1 TAB PO BID, #90 TAB 1 Refill 06/11/21 Carvedilol (Carvedilol) 12.5 Mg Tab, 1 TAB PO BID, #180 TAB 1 Refill 06/11/21 Allopurinol (ZYLOPRIM TABLET) 100 Mg Tb, 1 TAB PO DAILY, #30 TAB 5 Refills 06/11/21 Albuterol Sulfate (Albuterol Sulfate Hfa) 108 Mcg/Act Aer, 108 MCG IN, AER 06/11/21 Discontinued Reported Medications Amiodarone Hcl (Amiodarone Hcl) 200 Mg Tab, 1 TAB PO DAILY, #90 TAB 1 Refill 06/11/21 Hydrochlorothiazide (Hydrochlorothiazide) 25 Mg Tab, 1 TAB PO DAILY, #30 TAB 5 Refills 06/11/21 Information Source: Patient, Emergency Med Personnel Mode of Arrival: EMS Severity: Moderate Timing: Days Duration: Since onset, Days Prehospital treatment: None Location: Substernal Radiation: No Radiation Quality: Aching Onset: At Rest Cardiac Risk Factors: HTN, Diabetes PE Risk Factors: None History of: Other (Pacemaker procedure on thursday) Associated Signs and Symptoms: SOB Past Medical History PAST MEDICAL HISTORY: Asthma, CHF, COPD, CVA, DM, High Lipids, HTN, Seizures Surgical History: Pacemaker (Recently operated on Thursday of 10/03/24) Family History Family History: Reviewed,noncontributory to illness, Unknown Social History Smoker: Non-Smoker, Quit Greater Than 1 Year Alcohol: Denies ETOH Use Drugs: Denies Drug Use Lives In: Home Constitutional: denies: chills, diaphoresis, fatigue, fever, malaise, sweats, weakness, others EENTM: denies: blurred vision, double vision, ear bleeding, ear discharge, ear drainage, ear pain, ear ringing, eye pain, eye redness, hearing loss, mouth pain, mouth swelling, nasal discharge, nose bleeding, nose congestion, nose pain, photophobia, tearing, throat pain, throat swelling, voice changes, others Respiratory: reports: shortness of breath; denies: cough, hemoptysis, orthopnea, SOB at rest, SOB with excertion, stridor, wheezing, others Cardiovascular: reports: chest pain, edema; denies: dizzy spells, diaphoresis, Dyspnea on exertion, irregular heart beat, left arm pain, lightheadedness, palpitations, PND, syncope, others Gastrointestinal: denies: abdomen distended, abdominal pain, blood streaked bowels, constipated, diarrhea, dysphagia, difficulty swallowing, hematemesis, melena, nausea, poor appetite, poor fluid intake, rectal bleeding, rectal pain, vomiting, others Genitourinary: denies: burning, dysuria, flank pain, frequency, hematuria, incontinence, penile discharge, penile sore, pain, testicle pain, testicle swelling, urgency, others Neurological: denies: dizziness, fainting, headache, left sided numbness, left sided weakness, numbness, paresthesia, pre-existing deficit, right sided numbness, right sided weakness, seizure, speech problems, tingling, tremors, weakness, others Musculoskeletal: denies: back pain, gout, joint pain, joint swelling, muscle pain, muscle stiffness, neck pain, others Integumetry: denies: bruises, change in color, change in hair/nails, dryness, laceration, lesions, lumps, rash, wounds, others Allergic/Immunocompromised: denies: Difficulty Healing, Frequent Infections, Hives, Itching, others Hematologic/Lymphatic: denies: anemia, blood clots, easy bleeding, easy bruising, swollen glands, others Endocrine: denies: excessive hunger, excessive sweating, excessive thirst, excessive urination, flushing, intolerance to cold, intolerance to heat, unexplained weight gain, unexplained weight loss, others Psychiatric: denies: anxiety, bipolar disorder, depression, hopeless, panic disorder, schizophrenia, sleepless, suicidal, others All Other Systems: Reviewed and Negative Physical Exam General Appearance: Moderate Distress, Normal HEENT: Normal ENT Inspection, Pharynx Normal, TMs Normal Neck: Full Range of Motion, Non-Tender, Normal, Normal Inspection Respiratory: Accessory Muscle Use, Chest Non-Tender, Other (Coarse breath sounds) Cardiovascular: No Edema, No JVD, No Murmur, No Gallop, Normal Peripheral Pulses, Regular Rate/Rhythm Breast Exam: Deferred Gastrointestinal: No Organomegaly, Non Tender, No Pulsatile Mass, Normal Bowel Sounds, Soft Genitalia: Deferred Pelvic: Deferred Rectal: Deferred Extremities: No calf tenderness, Normal capillary refill, Normal range of motion, Non-tender, Pedal edema, Swelling (Bilateral lower extremity) Musculoskeletal : Apperance: Normal Neurologic: Alert, bone tender II-XII nml as Tested, No Motor Deficits, Normal Affect, Normal Mood, No Sensory Deficits Cerebellar Function: NOT DONE Reflexes: NOT DONE Skin: Dry, Normal Color, Warm Peripheral Pulses: 3+ Radial (R), 3+ Radial (L) Lymphatic: No Adenopathy Was a procedure done? Was a procedure done?: No CP Differential Dx Differential Diagnosis: A-fib, A-Flutter, Angina, Anxiety / Panic Attack, Atrial Dysrhythmia, Electrolyte Disorder X-Ray, Labs, Meds, VS Vital Signs Date Time Temp Pulse Resp B/P (MAP) Pulse Ox O2 Delivery O2 Flow Rate FiO2 10/09/24 09:20 93 19 115/65 10/09/24 08:28 92 17 96 Room Air* 0 21 10/09/24 08:01 97.9 92 17 94/53 (67) 96 97.9 10/09/24 07:19 95 10/09/24 06:07 98.6 100 24 102/40 (60) 98 10/09/24 05:51 99 Lab Test 10/09/24 09:04 10/09/24 06:41 Range/Units Troponin I High Sensitivity 11 13 </=54 ng/L White Blood Count 9.1 # 4.4-10.8 10^3/uL Red Blood Count 5.37 4.5-5.90 10^6/uL Hemoglobin 15.2 13.5-17.5 g/dL Hematocrit 44.9 41.0-53.0 % Mean Corpuscular Volume 83.5 80.0-100.0 fL Mean Corpuscular Hemoglobin 28.3 28.0-32.0 pg Mean Corpuscular Hemoglobin Concent 33.9 32.0-36.0 g/dL Red Cell Distribution Width 15.6 H 11.8-14.3 % Platelet Count 201 140-450 10^3/uL Mean Platelet Volume 8.2 6.9-10.8 fL Neutrophils (%) (Auto) 53.8 37.0-80.0 % Lymphocytes (%) (Auto) 27.4 10.0-50.0 % Monocytes (%) (Auto) 10.0 0.0-12.0 % Eosinophils (%) (Auto) 8.2 H 0.0-7.0 % Basophils (%) (Auto) 0.6 0.0-2.0 % Neutrophils # (Auto) 4.9 1.6-8.6 10 ^3/uL Lymphocytes # (Auto) 2.5 0.4-5.4 10 ^3/uL Monocytes # (Auto) 0.9 0-1.3 10 ^3/uL Eosinophils # (Auto) 0.8 0-0.8 10 ^3/uL Basophils # (Auto) 0.1 0-0.2 10 ^3/uL Nucleated Red Blood Cells 0.1 % Sodium Level 134 L 136-145 mmol/L Potassium Level 3.5 3.5-5.1 mmol/L Chloride Level 94 L 98-107 mmol/L Carbon Dioxide Level 26 20-31 mmol/L Anion Gap 14 5-15 Blood Urea Nitrogen 63 H 9-23 mg/dL Creatinine 8.79 #H 0.700-1.30 mg/dL Glomerular Filtration Rate Calc 7 >90 mL/min BUN/Creatinine Ratio 7.2 L 10.0-20.0 Serum Glucose 223 H 74-106 mg/dL Calcium Level 9.7 8.7-10.4 mg/dL B-Type Natriuretic Peptide 25.95 0-100 pg/mL Current Medications Medications (Trade) Dose Ordered Sig/Ju Route Start Time Stop Time Status Last Admin Aspirin 325 mg ONCE ONCE PO 10/09/24 07:15 10/09/24 07:16 DC 10/09/24 07:45 Ondansetron HCl (Zofran) 4 mg ONCE ONCE IV 10/09/24 07:30 10/09/24 07:31 DC 10/09/24 07:46 Morphine Sulfate 4 mg ONCE ONCE IV 10/09/24 07:30 10/09/24 07:31 DC 10/09/24 09:20 Patient alert. Shortness of breath. He does not want to take Lasix. Kidney function elevated. Chest pain. Was given aspirin. Was given morphine. Was given Zofran. Cardiac marker within normal limits. EKG reviewed does not show any acute changes. Explained to the patient. Continue cardiac monitoring. Time of 1ST Reevaluation: 07:40 Reevaluation 1ST: Unchanged Patient Education/Counseling: Diagnosis, Treatment, Prognosis Family Education/Counseling: No Family Present Departure 1 Departure Time of Disposition: 10:20 Impression: Primary Impression: Diastolic heart failure Qualified Codes: I50.33 - Acute on chronic diastolic (congestive) heart failure Additional Impressions: COPD exacerbation Chest pain of unknown etiology Disposition: ADMITTED INPATIENT Admit to: Med Surg Condition: Guarded Critical Care Note Critical Care Time?: Yes (45 min-critical care time only) Critical care comment: Chest pain shortness a breath Stability Stability form required: No Heart Score Heart Score: Heart Score Response (Comments) Value History Slightly Suspicious 0 EKG Normal 0 Age 45-64 1 Risk Factors >3 or Hx ASHD 2 Troponin Normal limit 0 Total 3 I personally scribed for ELISHA HOFFMANN MD ([email or web address]) on 10/09/24 at 08:08. Electronically submitted by Douglas Roland ([email or web address]). ELISHA HOFFMANN MD Oct 09, 2024 08:08
[2024-10-09 08:28] VITALS: PULSE 92; RESP 17; O2SAT 96
[2024-10-09] MEDS: MORPHINE SULFATE 4 MG/ML SYR/VIAL IV ONE (09:20)
--- NOTE | 2024-10-09 12:24 | DVHDS2 ---
New Physician D'charge PN Admitting Diagnosis Admitting Diagnosis cp Discharge Diagnosis cp, trops negative Operations or Procedures none Reason(s) For Hospitalization Surgery Hospital Course 54 M who comes to ER for CP. He states he had his defibrillator battery changes last week here at this hospital and since then has been having CP. His troponin enzymes are negative x2 and cxr is clear. EKG shows no ischemic changes. BNP was noted to be 25 and not suggestive of CHF. 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 Treatment Plan Discharge Condition of Discharge Good Disposition Home Discharge Instructions Diet: Cardiac 2g Na,low cholest Activity: No Restrictions, As Tolerated Medications: see med sheet Follow Up Care Follow Up/Referral: pcp cardio Discharge Statement: "Patient was advised to return to the ER or call 911 if any headaches, dizziness, shortness of breath, chest pain, abdominal pain, bleeding, fevers, or worsening of medical condition. Patient was counseled about treatment plan, medications, possible side effects, patientverbalized understanding. All questions were answered to the best of my ability. This discharge took greater then 30 minutes in planning, reviewing documentation, counseling the patient, and discussing with other team members." KEZIA MICHAELS MD Oct 09, 2024 12:24
[2024-10-09] MEDS: SODIUM CHLORIDE 0.9% 1,000 ML IV ONE (13:00)
[2024-10-09 14:00] VITALS: BP 134/69; PULSE 87; RESP 16; O2SAT 95
[2024-10-09] MEDS: PANTOPRAZOLE 40 MG/10 ML VIAL INJ IV ONE (14:25)
== END 2024-10-09 16:05 | disposition home or self-care (01) ==
LOC: EDBD 05:44 → ER 05:44 → EDUNIT# 05:44 → ER 16:05
DX: J44.1 Chronic obstructive pulmonary disease with (acute) exacerbation (principal); I11.0 Hypertensive heart disease with heart failure; I50.33 Acute on chronic diastolic (congestive) heart failure; E11.9 Type 2 diabetes mellitus without complications; I48.91 Unspecified atrial fibrillation; Z79.01 Long term (current) use of anticoagulants; Z79.82 Long term (current) use of aspirin; Z79.84 Long term (current) use of oral hypoglycemic drugs; Z79.85 Long-term (current) use of injectable non-insulin antidiabetic drugs; Z79.899 Other long term (current) drug therapy; Z86.73 Personal history of transient ischemic attack (TIA), and cerebral infarction without residual deficits; Z88.0 Allergy status to penicillin; Z95.0 Presence of cardiac pacemaker; Z87.891 Personal history of nicotine dependence
CPT/HCPCS: 36415; 71045; 80048; 83880; 84484; 85025; 93005; 96361; 96374; 96375; 99291; J2270; J2405; J2470; J7030

== ENCOUNTER 2025-05-17 06:17 | Emergency (ER) | payer OTHER ==
[~2025-05-17] VITALS: Ht 170.2 cm; Wt 177.2 kg
--- NOTE | 2025-05-17 06:48 | ED.PDOC ---
General HPI Comments A 55 YEAR OLD MALE PRESENTS TO THE ED WITH COMPLAINT OF TESTICULAR PAIN AND STAPLE REMOVAL. PATIENT REPORTS THAT HE HAS BEEN EXPERIENCING LEFT LOW BACK PAIN THAT HAS BEEN RADIATING INTO HIS LEFT TESTICLE FOR THE PAST 10 DAYS. PATIENT RELAYS THAT HIS BACK PAIN HAS SINCE RESOLVED, BUT HIS TESTICULAR PAIN HAS CONTINUED. PATIENT STATES THAT HE HAS ALSO HAD VINITA IN HIS LEFT CHEST THAT HAVE NOT BEEN REMOVED FOR A YEAR AFTER HAVING HIS DEFIBRILLATOR PLACED, NEEDING THEM REMOVED NOW. PATIENT DENIES FEVER, CHILLS, SHORTNESS OF BREATH, CHEST PAIN, ABDOMINAL PAIN, NAUSEA, VOMITING, HEADACHE, OR OTHER COMPLAINTS. NO OTHER SYMPTOMS OR MODIFYING FACTORS AT THIS TIME. PATIENT IS ALERT, ORIENTED X 4, AND HAS STEADY GAIT. Chief Complaint: Testicle Pain Time Seen by MD: 06:36 Primary Care Provider: UNKNOWN Reviewed notes: Nurses Notes, Medications, Allergies Allergies: Coded Allergies: Penicillins (Verified Allergy, Unknown, 06/10/21) Home Meds Active Scripts Indomethacin (Indomethacin) 50 Mg Cap, 1 CAP PO TID, #30 CAP Prov:LISA AMAYA 05/17/25 Rivaroxaban (XARELTO) 10 Mg Tab, 1 TAB PO DAILY, #30 TAB Prov:TED JAMESON DO 10/04/24 Lisinopril (Lisinopril) 10 Mg Tab, 10 MG PO DAILY for 90 Days, #90 TAB Prov:TED JAMESON DO 10/04/24 Dapagliflozin Propanediol (Farxiga) 10 Mg Tab, 10 MG PO DAILY, #60 TAB Prov:TED JAMESON DO 10/04/24 Atorvastatin Calcium (ATORVASTATIN CALCIUM) 20 Mg Tab, 1 TAB PO HS, #30 TAB 2 Refills Prov:TED JAMESON DO 10/04/24 Sitagliptin Phosphate (Januvia) 100 Mg Tab, 1 TAB PO DAILY, #30 TAB 5 Refills Prov:TED JAMESON DO 10/04/24 Amiodarone HCl (Amiodarone HCl) 200 Mg Tab, 200 MG PO BID for 30 Days, #60 TAB 1 Refill Prov:TED JAMESON DO 10/04/24 Doxycycline (Monohydrate) (Doxycycline) 100 Mg Cap, 100 MG PO BID for 4 Days, #8 CAP 0 Refills Prov:TED JAMESON DO 10/04/24 Furosemide (Lasix) 80 Mg Tab, 80 TAB PO DAILY, #90 TAB 1 Refill Prov:TED JAMESON DO 10/04/24 Reported Medications Semaglutide (Ozempic) 2 Mg/3 Ml Inj, QWEEKLY 10/01/24 Metformin Hydrochloride (Metformin Hcl) 500 Mg Tab, 1000 MG PO BID 10/01/24 Aspirin (Aspir-81) 81 Mg Tab, 1 TAB PO DAILY, #30 TAB 5 Refills 06/11/21 Levetiracetam (KEPPRA TABLET) 500 Mg Tb, 500 MG PO BID, TAB 06/11/21 Hydralazine Hcl (Hydralazine Hcl) 50 Mg Tab, 25 MG PO TID, TAB 06/11/21 Spironolactone (Spironolactone) 25 Mg Tab, 1 TAB PO BID, #90 TAB 1 Refill 06/11/21 Carvedilol (Carvedilol) 12.5 Mg Tab, 1 TAB PO BID, #180 TAB 1 Refill 06/11/21 Allopurinol (ZYLOPRIM TABLET) 100 Mg Tb, 1 TAB PO DAILY, #30 TAB 5 Refills 06/11/21 Albuterol Sulfate (Albuterol Sulfate Hfa) 108 Mcg/Act Aer, 108 MCG IN, AER 06/11/21 Information Source: Patient Mode of Arrival: Wheelchair Severity: Moderate Inability to void: None Timing: Days Duration: Since onset, Days Prehospital treatment: None Onset: Spontaneous Symptoms: None History of: None Location: Other (LEFT LOW BACK ) Location male: L Scrotum Penile discharge: None Modifying factors: None associated signs and symptoms: Back Pain Past Medical History PAST MEDICAL HISTORY: Asthma, CHF, COPD, CVA, DM, High Lipids, HTN, Seizures Surgical History: Pacemaker Family History Family History: Reviewed,noncontributory to illness, Unknown Social History Smoker: Non-Smoker, Quit Greater Than 1 Year Alcohol: Denies ETOH Use Drugs: Denies Drug Use Lives In: Home Constitutional: denies: chills, diaphoresis, fatigue, fever, malaise, sweats, weakness, others EENTM: denies: blurred vision, double vision, ear bleeding, ear discharge, ear drainage, ear pain, ear ringing, eye pain, eye redness, hearing loss, mouth pain, mouth swelling, nasal discharge, nose bleeding, nose congestion, nose pain, photophobia, tearing, throat pain, throat swelling, voice changes, others Respiratory: denies: cough, hemoptysis, orthopnea, SOB at rest, shortness of breath, SOB with excertion, stridor, wheezing, others Cardiovascular: denies: chest pain, dizzy spells, diaphoresis, Dyspnea on exertion, edema, irregular heart beat, left arm pain, lightheadedness, palpitations, PND, syncope, others Gastrointestinal: denies: abdomen distended, abdominal pain, blood streaked bowels, constipated, diarrhea, dysphagia, difficulty swallowing, hematemesis, melena, nausea, poor appetite, poor fluid intake, rectal bleeding, rectal pain, vomiting, others Genitourinary: reports: testicle pain, testicle swelling; denies: burning, dysuria, flank pain, frequency, hematuria, incontinence, penile discharge, penile sore, pain, urgency, others Neurological: denies: dizziness, fainting, headache, left sided numbness, left sided weakness, numbness, paresthesia, pre-existing deficit, right sided numbness, right sided weakness, seizure, speech problems, tingling, tremors, weakness, others Musculoskeletal: reports: back pain, muscle pain; denies: gout, joint pain, joint swelling, muscle stiffness, neck pain, others Integumetry: denies: bruises, change in color, change in hair/nails, dryness, laceration, lesions, lumps, rash, wounds, others Allergic/Immunocompromised: denies: Difficulty Healing, Frequent Infections, Hives, Itching, others Hematologic/Lymphatic: denies: anemia, blood clots, easy bleeding, easy bruisi ng, swollen glands, others Endocrine: denies: excessive hunger, excessive sweating, excessive thirst, exce ssive urination, flushing, intolerance to cold, intolerance to heat, unexplained weight gain, unexplained weight loss, others Psychiatric: denies: anxiety, bipolar disorder, depression, hopeless, panic disorder, schizophrenia, sleepless, suicidal, others All Other Systems: Reviewed and Negative Physical Exam General Appearance: No Apparent Distress, Obese HEENT: Normal ENT Inspection, PERRL/EOMI Neck: Full Range of Motion, Non-Tender, Normal, Normal Inspection Respiratory: Chest Non-Tender, Lungs Clear, No Accessory Muscle Use, No Respiratory Distress, Normal Breath Sounds Cardiovascular: No Edema, No JVD, No Murmur, No Gallop, Normal Peripheral Pulses, Regular Rate/Rhythm Breast Exam: Deferred Gastrointestinal: No Organomegaly, Non Tender, No Pulsatile Mass, Normal Bowel Sounds, Soft Genitalia: Scrotum (TENDERNESS AND MILD SWELLING ON LEFT SCROTUM, NO REDNESS AND INFECTION SIGNS. ), Testicle (TENDERNESS LEFT TESTICLE, NO TESTICLE TORSION, BILATERAL TESTICLE DESCENDING. ), Deferred Pelvic: Normal External Exam Rectal: Deferred Extremities: No calf tenderness, Normal capillary refill, Normal inspection, Normal range of motion, Non-tender, No pedal edema Musculoskeletal : Apperance: Normal Neurologic: Alert, boot turner II-XII nml as Tested, No Motor Deficits, Normal Affect, Normal Mood, No Sensory Deficits Cerebellar Function: Normal Reflexes: Normal Skin: Dry, Normal Color, Warm, Other (VINITA OMN LEFT UPPER CHEST WALL, HEALED INCISION WOUND, NO INFECTION SIGNS. ) Peripheral Pulses: 2+ carotid (R), 2+ carotid (L) Lymphatic: No Adenopathy Was a procedure done? Was a procedure done?: No Differential Diagnosis Kidney stone (Female): N/A Kidney stone (Male): Urolithiasis, Urinary tract infection Penile/Scrotal: Epidiymitis, UTI, Hydrocele, Testicular Torsion, Urolithiasis Urinary Problem (Male): Epididymitis, Urethritis X-Ray, Labs, Meds, VS Vital Signs Date Time Temp Pulse Resp B/P (MAP) Pulse Ox O2 Delivery O2 Flow Rate FiO2 05/17/25 09:36 98.0 85 20 145/83 (103) 94 98.0 05/17/25 09:36 85 20 94 Room Air 2.0 05/17/25 06:27 97.9 91 20 122/63 90 97.9 Lab Test 05/17/25 08:22 Range/Units White Blood Count 7.1 4.4-10.8 10^3/uL Red Blood Count 5.15 4.5-5.90 10^6/uL Hemoglobin 15.1 13.5-17.5 g/dL Hematocrit 45.1 41.0-53.0 % Mean Corpuscular Volume 87.7 80.0-100.0 fL Mean Corpuscular Hemoglobin 29.3 28.0-32.0 pg Mean Corpuscular Hemoglobin Concent 33.4 32.0-36.0 g/dL Red Cell Distribution Width 16.3 H 11.8-14.3 % Platelet Count 203 140-450 10^3/uL Mean Platelet Volume 7.3 6.9-10.8 fL Neutrophils (%) (Auto) 54.5 37.0-80.0 % Lymphocytes (%) (Auto) 34.2 10.0-50.0 % Monocytes (%) (Auto) 7.6 0.0-12.0 % Eosinophils (%) (Auto) 2.1 0.0-7.0 % Basophils (%) (Auto) 1.6 0.0-2.0 % Neutrophils # (Auto) 3.9 1.6-8.6 10 ^3/uL Lymphocytes # (Auto) 2.4 0.4-5.4 10 ^3/uL Monocytes # (Auto) 0.5 0-1.3 10 ^3/uL Eosinophils # (Auto) 0.1 0-0.8 10 ^3/uL Basophils # (Auto) 0.1 0-0.2 10 ^3/uL Nucleated Red Blood Cells 0.2 % Sodium Level 141 136-145 mmol/L Potassium Level 4.4 3.5-5.1 mmol/L Chloride Level 100 98-107 mmol/L Carbon Dioxide Level 32 H 20-31 mmol/L Anion Gap 9 5-15 Blood Urea Nitrogen 20 9-23 mg/dL Creatinine 1.73 H 0.700-1.30 mg/dL Glomerular Filtration Rate Calc 46 >90 mL/min BUN/Creatinine Ratio 11.6 10.0-20.0 Serum Glucose 178 H 74-106 mg/dL Calcium Level 9.5 8.7-10.4 mg/dL [facility] [id number] [place] [address] Ph: [phone] DIAGNOSTIC IMAGING Diagnostic Imaging Report : [id number] Signed PATIENT: SANDY SANCHEZ ACCT: [id number] UNIT: [id number] : 1970 LOC: ER ROOM / BED: / AGE / SEX: 55 / M ADM STATUS: REG ER SERVICE [id number] ORDERING PHYSICIAN: LISA AMAYA PROCEDURE(s): TESUS - TESTICULAR ULTRASOUND REASON: LEFT TESTICLE PAIN ORDER NUMBER(s): [id number], ACCESSION NUMBER(s): [id number] ULTRASOUND OF SCROTUM AND CONTENTS. INDICATION: LEFT TESTICLE PAIN COMPARISON: None TECHNIQUE: Multiple real-time grayscale sonographic and color and duplex Doppler images of the scrotum and its contents were obtained. FINDINGS: The right testicle measures 4.3 x 3.1 x 2.6 cm. The left testicle measures 3.9 x 2.9 x 2.4 cm. Both testicles demonstrate homogeneous echotexture without evidence of focal lesions. The right epididymal head measures 3.5 cm. The left epididymal head measures 0.9 cm. Subsequent color and duplex Doppler interrogation of the testes demonstrated symmetric normal vascular flow to both testicles. No focal areas of hyperemia were seen. Moderate to large bilateral hydroceles. IMPRESSION: 1. No evidence of torsion, epididymitis, and/or orchitis. Moderate to large bilateral hydroceles. ATED BY: LUCY CORNEJO MD DICTATED DATE/TIME: 05/17/25839 SIGNED BY: LUCY CORNEJO MD SIGNED DATE/TIME: 05/17/25839 CC: [place] [id number] Ph: [phone] DIAGNOSTIC IMAGING Diagnostic Imaging Report : [id number] Signed PATIENT: SANDY SANCHEZ ACCT: [id number] UNIT: [id number] : 1970 LOC: ER ROOM / BED: / AGE / SEX: 55 / M ADM STATUS: REG ER SERVICE [id number] ORDERING PHYSICIAN: LISA AMAYA PROCEDURE(s): ABPL - CT AB PEL WO CON-NO ORAL OR IV REASON: LEFT LOW BACK PAIN TO LEFT TESTICLE ORDER NUMBER(s): [id number], ACCESSION NUMBER(s): [id number] CLINICAL HISTORY: LEFT LOW BACK PAIN TO LEFT TESTICLE TECHNIQUE: CT of the abdomen and pelvis was performed without IV contrast. This exam was performed according to our departmental dose optimization program. Up-to-date CT equipment and radiation dose reduction techniques are utilized as appropriate. CTDI 28 DLP 1718 COMPARISON: [facility] on DOS: 10/08/22 FINDINGS: Abdomen/Pelvis: The spleen, pancreas, adrenal glands, kidneys, bladder, and prostate gland are grossly unremarkable. There is diffuse hepatic steatosis. There is sludge within the gallbladder. The abdominal aorta is normal in course and caliber. There are minimal aortic atherosclerotic calcifications. There is no free intraperitoneal air or fluid. There is no enlarged abdominal pelvic lymph node. There is no bowel wall thickening or dilatation. The appendix is normal. There i s a moderate size fat containing umbilical hernia. Other: The imaged lower thorax demonstrates mosaic appearance of the lung bases, likely representing air trapping. There are coronary artery calcifications, prominent in the LAD distribution. There are pacer wires noted. No acute osseous abnormality is evident. Impression: No acute noncontrast CT abnormality in the abdomen or pelvis. Diffuse hepatic steatosis. Moderate fat containing umbilical hernia. Suspected bilateral lower lung air trapping, compatible with reactive and/or small airway disease. Coronary artery calcifications, advanced for patient age. ATED BY: ISABELLA MCCLAIN MD DICTATED DATE/TIME: 05/17/25843 SIGNED BY: ISABELLA MCCLAIN MD SIGNED DATE/TIME: 05/17/25843 CC: X-Ray, Labs, Meds, VS Comment EXTERNAL MEDICAL RECORDS REVIEWED: [NONE] INDEPENDENT HISTORIANS: [NONE] SOCIAL DETERMINANTS OF HEALTH: [NONE] LABS ORDERED: CBC, BMP, UA REVIEWED AND INTERPRETED RESULTS: TESTICULAR US IMAGING ORDERED: TESTICULAR US TREATMENTS ORDERED: PT DECLINED PROCEDURES PERFORMED: NONE CRITICAL CARE TIME: NONE I HAVE DISCUSSED THE PATIENT WITH THE ATTENDING PHYSICIAN, DR. MOSQUERA, HE AGREES WITH THE PATIENT'S PLAN OF CARE AND DISPOSITION. BASED ON HISTORY OF PRESENT ILLNESS, AND PHYSICAL EXAM, PATIENT WILL BE DISCHARGED HOME. DISCUSSED PLAN FOR DISCHARGE HOME WITH RX []. MEDICATION WARNINGS GIVEN. SHARED DECISION MAKING: DISCUSSED WITH PATIENT THAT THEIR WORKUP WAS NORMAL. PATIENT INSTRUCTED TO FOLLOW UP WITH PRIMARY CARE PROVIDER IN 1-2 DAYS FOR RE- EVALUATION OF SYMPTOMS. PATIENT VERBALIZES UNDERSTANDING TO RETURN TO ED FOR NEW OR WORSENING SYMPTOMS OR IF FOLLOW UP WITH PCP CANNOT BE OBTAINED. PATIENT FEELS COMFORTABLE GOING HOME AT THIS TIME. ALL QUESTIONS ADDRESSED AT TIME OF DISCHARGE. Images Reviewed?: Images reviewed and evaluated by me Time of 1ST Reevaluation: 09:39 Reevaluation 1ST: Improved Patient Education/Counseling: Diagnosis, Treatment, Need For Follow Up Family Education/Counseling: Diagnosis, Treatment, Need For Follow Up Medical Screening: No EMC Exist At This Time SEPSIS Sepsis Screen Date sepsis recognized/suspect: May 17, 2025 Time Sepsis recognized/suspect: 629 Recent Procedure: No On Antibiotic Therapy: No Respiratory Rate >20: No Heart Rate >90: Yes Temp<36 C (96.8 F) or >38.3 C: No SBP <90 or MAP <65 mmHG: No New Acute Mental Status Change: No Is the patient on CPAP, BIPAP,: No Physician Orders Urinalysis (05/17/25 06:48) Testicular Ultrasound (05/17/25 06:48) Ct Ab Pel Wo Con-No Oral Or Iv (05/17/25 07:14) Vital Signs Date Time Temp Pulse Resp B/P (MAP) Pulse Ox O2 Delivery O2 Flow Rate FiO2 05/17/25 09:36 98.0 85 20 145/83 (103) 94 98.0 05/17/25 09:36 85 20 94 Room Air 2.0 05/17/25 06:27 97.9 91 20 122/63 90 97.9 Laboratory Tests Test 05/17/25 08:22 White Blood Count 7.1 10^3/uL (4.4-10.8) Departure 1 Departure Time of Disposition: 09:39 Impression: Primary Impression: Bilateral hydrocele Additional Impressions: Umbilical hernia Qualified Codes: K42.9 - Umbilical hernia without obstruction or gangrene Morbid obesity Disposition: 01 HOME / SELF CARE / HOMELESS Condition: Stable Additional Instructions: FOLLOW-UP WITH PCP IN 1 TO 2 DAYS. TAKE MEDICATIONS PRESCRIBED. RETURN TO ED FOR ANY NEW OR WORSENING SYMPTOMS. e-Prescriptions Indomethacin (Indomethacin) 50 Mg Cap 1 CAP PO TID, #30 CAP Prov: LISA AMAYA 05/17/25 Discharged With: Self, Relative Critical Care Note Critical Care Time?: No Stability Stability form required: No Heart Score Heart Score: Heart Score Response (Comments) Value History N/A 0 EKG N/A 0 Age N/A 0 Risk Factors N/A 0 Troponin N/A 0 Total 0 I personally scribed for LISA AMAYA ([email or web address]) on 05/17/25 at 06:48. Electronically submitted by Manjit Torrez ([email or web address]). I personally scribed for LISA AMAYA ([email or web address]) on 05/17/25 at 07:04. Electronically submitted by Manjit Torrez ([email or web address]). I personally scribed for LISA AMAYA ([email or web address]) on 05/17/25 at 08:52. Electronically submitted by Manjit Torrez ([email or web address]). I personally scribed for LISA AMAYA ([email or web address]) on 05/17/25 at 09:06. Electronically submitted by Manjit Torrez ([email or web address]). LISA AMAYA May 17, 2025 06:48
[2025-05-17 08:32] LABS: Hematocrit 45.1 % (41.0-53.0); Hemoglobin 15.1 g/dL (13.5-17.5); Mean Corpuscular Hemoglobin 29.3 pg (28.0-32.0); Mean Corpuscular Volume 87.7 fL (80.0-100.0); Nucleated Red Blood Cells % 0.2 %
[2025-05-17 08:41] LABS: Anion Gap 9 (5-15); Chloride 100 mmol/L (98-107); Potassium 4.4 mmol/L (3.5-5.1); Sodium 141 mmol/L (136-145)
[2025-05-17 08:42] LABS: Calcium 9.5 mg/dL (8.7-10.4)
--- NOTE | 2025-05-17 08:42 | DVH ---
ULTRASOUND OF SCROTUM AND CONTENTS. INDICATION: LEFT TESTICLE PAIN COMPARISON: None TECHNIQUE: Multiple real-time grayscale sonographic and color and duplex Doppler images of the scrotu m and its contents were obtained. FINDINGS: The right testicle measures 4.3 x 3.1 x 2.6 cm. The left testicle measures 3.9 x 2.9 x 2.4 cm. Both testicles demonstrate homogeneous echotexture without evidence of focal lesions. The right epididymal head measures 3.5 cm. The left epididymal head measures 0.9 cm. Subsequent color and duplex Doppler interrogation of the testes demonstrated symmetric normal vascula r flow to both testicles. No focal areas of hyperemia were seen. Moderate to large bilateral hydroceles. IMPRESSION: 1. No evidence of torsion, epididymitis, and/or orchitis. Moderate to large bilateral hydroceles.
[2025-05-17 08:43] LABS: Carbon Dioxide 32 mmol/L (20-31)
[2025-05-17 08:47] LABS: BUN/Creatinine Ratio 11.6 (10.0-20.0); Blood Urea Nitrogen 20 mg/dL (9-23)
--- NOTE | 2025-05-17 08:47 | DVH ---
CLINICAL HISTORY: LEFT LOW BACK PAIN TO LEFT TESTICLE TECHNIQUE: CT of the abdomen and pelvis was performed without IV contrast. This exam was performed ac cording to our departmental dose optimization program. Up-to-date CT equipment and radiation dose red uction techniques are utilized as appropriate. CTDI 28 DLP 1718 COMPARISON: [facility] on DOS: 10/08/22 FINDINGS: Abdomen/Pelvis: The spleen, pancreas, adrenal glands, kidneys, bladder, and prostate gland are grossly unremarkable. There is diffuse hepatic steatosis. There is sludge within the gallbladder. The abdominal aorta is normal in course and caliber. There are minimal aortic atherosclerotic calcifi cations. There is no free intraperitoneal air or fluid. There is no enlarged abdominal pelvic lymph node. There is no bowel wall thickening or dilatation. The appendix is normal. There is a moderate size fat containing umbilical hernia. Other: The imaged lower thorax demonstrates mosaic appearance of the lung bases, likely representing air tra pping. There are coronary artery calcifications, prominent in the LAD distribution. There are pacer w ires noted. No acute osseous abnormality is evident. Impression: No acute noncontrast CT abnormality in the abdomen or pelvis. Diffuse hepatic steatosis. Moderate fat containing umbilical hernia. Suspected bilateral lower lung air trapping, compatible with reactive and/or small airway disease. Coronary artery calcifications, advanced for patient age.
[2025-05-17 08:48] LABS: Glucose 178 mg/dL (74-106)
[2025-05-17] MEDS ORDERED: INDO50CA82 PO (09:27)
[2025-05-17 09:36] VITALS: BP 145/83; PULSE 85; RESP 20; TEMP 98; O2SAT 94
== END 2025-05-17 09:37 | disposition home or self-care (01) ==
LOC: ER 06:17
DX: N43.3 Hydrocele, unspecified (principal); K42.9 Umbilical hernia without obstruction or gangrene; E66.01 Morbid (severe) obesity due to excess calories; I11.0 Hypertensive heart disease with heart failure; I50.9 Heart failure, unspecified; E11.9 Type 2 diabetes mellitus without complications; I25.10 Atherosclerotic heart disease of native coronary artery without angina pectoris; J44.89 Other specified chronic obstructive pulmonary disease; Z79.01 Long term (current) use of anticoagulants; Z79.82 Long term (current) use of aspirin; Z79.84 Long term (current) use of oral hypoglycemic drugs; Z79.899 Other long term (current) drug therapy; Z95.0 Presence of cardiac pacemaker; Z86.73 Personal history of transient ischemic attack (TIA), and cerebral infarction without residual deficits; Z88.0 Allergy status to penicillin; Z48.02 Encounter for removal of sutures
CPT/HCPCS: 36415; 74176; 76870; 80048; 85025

== ENCOUNTER 2025-07-21 12:29 | Emergency (ER) | payer OTHER ==
[~2025-07-21] VITALS: Ht 198.1 cm; Wt 181.5 kg
[~2025-07-21 12:29] MED LIST changes: +INDO50CA82 PO
[2025-07-21 12:49] VITALS: TEMP 98.3
--- NOTE | 2025-07-21 13:10 | ED.PDOC ---
History of Present Illness HPI Comments 55-year-old male brought by paramedics from home because of palpitations which started about an hour ago. He was sitting down when he started to have palpitations pain He does have a defibrillator in place. Defibrillator never fired. History of atrial fibrillation with a rate of 120 on arrival. He does have a history of CHF hypertension CVA COPD. EKG shows sinus tachycardia. Denies any other symptoms. Chief Complaint: Palpitations Time Seen by MD: 12:44 Primary Care Provider: UNKNOWN Reviewed Notes: Nurses Notes, Medications, Allergies Allergies: Coded Allergies: Penicillins (Verified Allergy, Unknown, 06/10/21) Home Meds Active Scripts Indomethacin (Indomethacin) 50 Mg Cap, 1 CAP PO TID, #30 CAP Prov:LISA AMAYA 05/17/25 Rivaroxaban (XARELTO) 10 Mg Tab, 1 TAB PO DAILY, #30 TAB Prov:TED JAMESON DO 10/04/24 Lisinopril (Lisinopril) 10 Mg Tab, 10 MG PO DAILY for 90 Days, #90 TAB Prov:TED JAMESON DO 10/04/24 Dapagliflozin Propanediol (Farxiga) 10 Mg Tab, 10 MG PO DAILY, #60 TAB Prov:THANIATED MARTI DO 10/04/24 Atorvastatin Calcium (ATORVASTATIN CALCIUM) 20 Mg Tab, 1 TAB PO HS, #30 TAB 2 Refills Prov:TED JAMESON DO 10/04/24 Sitagliptin Phosphate (Januvia) 100 Mg Tab, 1 TAB PO DAILY, #30 TAB 5 Refills Prov:TED JAMESON DO 10/04/24 Amiodarone HCl (Amiodarone HCl) 200 Mg Tab, 200 MG PO BID for 30 Days, #60 TAB 1 Refill Prov:TED JAMESON DO 10/04/24 Doxycycline (Monohydrate) (Doxycycline) 100 Mg Cap, 100 MG PO BID for 4 Days, #8 CAP 0 Refills Prov:TED JAMESON DO 10/04/24 Furosemide (Lasix) 80 Mg Tab, 80 TAB PO DAILY, #90 TAB 1 Refill Prov:TED JAMESON DO 10/04/24 Reported Medications Semaglutide (Ozempic) 2 Mg/3 Ml Inj, QWEEKLY 10/01/24 Metformin Hydrochloride (Metformin Hcl) 500 Mg Tab, 1000 MG PO BID 10/01/24 Aspirin (Aspir-81) 81 Mg Tab, 1 TAB PO DAILY, #30 TAB 5 Refills 06/11/21 Levetiracetam (KEPPRA TABLET) 500 Mg Tb, 500 MG PO BID, TAB 06/11/21 Hydralazine Hcl (Hydralazine Hcl) 50 Mg Tab, 25 MG PO TID, TAB 06/11/21 Spironolactone (Spironolactone) 25 Mg Tab, 1 TAB PO BID, #90 TAB 1 Refill 06/11/21 Carvedilol (Carvedilol) 12.5 Mg Tab, 1 TAB PO BID, #180 TAB 1 Refill 06/11/21 Allopurinol (ZYLOPRIM TABLET) 100 Mg Tb, 1 TAB PO DAILY, #30 TAB 5 Refills 06/11/21 Albuterol Sulfate (Albuterol Sulfate Hfa) 108 Mcg/Act Aer, 108 MCG IN, AER 06/11/21 Information Source: Patient, Emergency Med Personnel Mode of Arrival: EMS Severity: Moderate Timing: Hours Duration: Since onset Past Medical History PAST MEDICAL HISTORY: Asthma, CHF, COPD, CVA, DM, High Lipids, HTN, Seizures Surgical History: Pacemaker Family History Family History: Reviewed,noncontributory to illness, Unknown Social History Smoker: Non-Smoker, Quit Greater Than 1 Year Alcohol: Denies ETOH Use Drugs: Denies Drug Use Lives In: Home Constitutional: denies: chills, diaphoresis, fatigue, fever, malaise, sweats, weakness, others EENTM: denies: blurred vision, double vision, ear bleeding, ear discharge, ear drainage, ear pain, ear ringing, eye pain, eye redness, hearing loss, mouth pain, mouth swelling, nasal discharge, nose bleeding, nose congestion, nose pain, photophobia, tearing, throat pain, throat swelling, voice changes, others Respiratory: denies: cough, hemoptysis, orthopnea, SOB at rest, shortness of breath, SOB with excertion, stridor, wheezing, others Cardiovascular: reports: palpitations; denies: chest pain, dizzy spells, diaphoresis, Dyspnea on exertion, edema, irregular heart beat, left arm pain, lightheadedness, PND, syncope, others Gastrointestinal: denies: abdomen distended, abdominal pain, blood streaked bowels, constipated, diarrhea, dysphagia, difficulty swallowing, hematemesis, melena, nausea, poor appetite, poor fluid intake, rectal bleeding, rectal pain, vomiting, others Genitourinary: denies: burning, dysuria, flank pain, frequency, hematuria, incontinence, penile discharge, penile sore, pain, testicle pain, testicle swelling, urgency, others Neurological: denies: dizziness, fainting, headache, left sided numbness, left sided weakness, numbness, paresthesia, pre-existing deficit, right sided numbness, right sided weakness, seizure, speech problems, tingling, tremors, weakness, others Musculoskeletal: denies: back pain, gout, joint pain, joint swelling, muscle pain, muscle stiffness, neck pain, others Integumetry: denies: bruises, change in color, change in hair/nails, dryness, laceration, lesions, lumps, rash, wounds, others Allergic/Immunocompromised: denies: Difficulty Healing, Frequent Infections, Hives, Itching, others Hematologic/Lymphatic: denies: anemia, blood clots, easy bleeding, easy bruising, swollen glands, others Endocrine: denies: excessive hunger, excessive sweating, excessive thirst, excessive urination, flushing, intolerance to cold, intolerance to heat, unexplained weight gain, unexplained weight loss, others Psychiatric: denies: anxiety, bipolar disorder, depression, hopeless, panic disorder, schizophrenia, sleepless, suicidal, others Physical Exam General Appearance: Moderate Distress, Obese HEENT: Normal ENT Inspection, Pharynx Normal, TMs Normal Neck: Full Range of Motion, Non-Tender, Normal, Normal Inspection Respiratory: Chest Non-Tender, Lungs Clear, No Accessory Muscle Use, No Respiratory Distress, Normal Breath Sounds Cardiovascular: Tachycardia Breast Exam: Deferred Gastrointestinal: No Organomegaly, Non Tender, No Pulsatile Mass, Normal Bowel Sounds, Soft Genitalia: Deferred Pelvic: Deferred Rectal: Deferred Extremities: No calf tenderness, Pedal edema Musculoskeletal : Apperance: Normal Neurologic: Alert, No Motor Deficits, No Sensory Deficits Cerebellar Function: NOT DONE Reflexes: NOT DONE Skin: Dry, Normal Color, Warm Peripheral Pulses: 3+ Radial (R), 3+ Radial (L) Lymphatic: No Adenopathy Was a procedure done? Was a procedure done?: No EKG EKG : Pulse Rate (adult): 117 Cardiac Rhythm: ST Differential Dx Considerations may include: Anemia Electrolyte imbalance X-Ray, Labs, Meds, VS Vital Signs Date Time Temp Pulse Resp B/P (MAP) Pulse Ox O2 Delivery O2 Flow Rate FiO2 07/21/25 15:42 79 12 118/54 (75) 95 07/21/25 15:42 79 12 95 Nasal Cannula* 4 36 07/21/25 15:22 74 07/21/25 13:32 77 07/21/25 13:10 117 07/21/25 12:49 98.3 85 18 154/87 90 98.3 07/21/25 12:33 117 Lab Test 07/21/25 16:17 07/21/25 14:17 07/21/25 13:13 Range/Units Troponin I High Sensitivity 20 23 20 </=54 ng/L White Blood Count 4.5 4.4-10.8 10^3/uL Red Blood Count 5.37 4.5-5.90 10^6/uL Hemoglobin 15.6 13.5-17.5 g/dL Hematocrit 47.9 41.0-53.0 % Mean Corpuscular Volume 89.3 80.0-100.0 fL Mean Corpuscular Hemoglobin 29.0 28.0-32.0 pg Mean Corpuscular Hemoglobin Concent 32.5 32.0-36.0 g/dL Red Cell Distribution Width 17.4 H 11.8-14.3 % Platelet Count 169 140-450 10^3/uL Mean Platelet Volume 8.1 6.9-10.8 fL Neutrophils (%) (Auto) 52.3 37.0-80.0 % Lymphocytes (%) (Auto) 34.0 10.0-50.0 % Monocytes (%) (Auto) 8.9 0.0-12.0 % Eosinophils (%) (Auto) 3.3 0.0-7.0 % Basophils (%) (Auto) 1.5 0.0-2.0 % Neutrophils # (Auto) 2.3 1.6-8.6 10 ^3/uL Lymphocytes # (Auto) 1.5 0.4-5.4 10 ^3/uL Monocytes # (Auto) 0.4 0-1.3 10 ^3/uL Eosinophils # (Auto) 0.1 0-0.8 10 ^3/uL Basophils # (Auto) 0.1 0-0.2 10 ^3/uL Nucleated Red Blood Cells 0.2 % Sodium Level 140 136-145 mmol/L Potassium Level 4.9 3.5-5.1 mmol/L Chloride Level 104 98-107 mmol/L Carbon Dioxide Level 30 20-31 mmol/L Anion Gap 6 5-15 Blood Urea Nitrogen 24 H 9-23 mg/dL Creatinine 1.87 H 0.700-1.30 mg/dL Glomerular Filtration Rate Calc 42 >90 mL/min BUN/Creatinine Ratio 12.8 10.0-20.0 Serum Glucose 233 H 74-106 mg/dL Calcium Level 9.2 8.7-10.4 mg/dL B-Type Natriuretic Peptide 76.00 0-100 pg/mL Patient alert. Vitals stable. Morbidly obese. Answering questions. Does have mild swelling of the extremities. Was given Lasix. EKG reviewed does show tachycardic. There was a lead questionable. Spoke with Cardiology. Agreed patient should be admitted for further studies. Continue to monitor. Heritage is falling the patient. Time of 1ST Reevaluation: 13:08 Reevaluation 1ST: Unchanged Patient Education/Counseling: Diagnosis, Treatment, Prognosis Family Education/Counseling: No Family Present SEPSIS Sepsis Screen Date sepsis recognized/suspect: Jul 21, 2025 Time Sepsis recognized/suspect: 1234 Recent Procedure: No On Antibiotic Therapy: No Respiratory Rate >20: No Heart Rate >90: No Temp<36 C (96.8 F) or >38.3 C: No SBP <90 or MAP <65 mmHG: No New Acute Mental Status Change: No Is the patient on CPAP, BIPAP,: No Physician Orders Chest Portable (07/21/25 12:59) Urinalysis (07/21/25 12:59) Electrocardigram (07/21/25 16:38) Vital Signs Date Time Temp Pulse Resp B/P (MAP) Pulse Ox O2 Delivery O2 Flow Rate FiO2 07/21/25 15:42 79 12 118/54 (75) 95 07/21/25 15:42 79 12 95 Nasal Cannula* 4 36 07/21/25 15:22 74 07/21/25 13:32 77 07/21/25 13:10 117 07/21/25 12:49 98.3 85 18 154/87 90 98.3 07/21/25 12:33 117 Laboratory Tests Test 07/21/25 13:13 White Blood Count 4.5 10^3/uL (4.4-10.8) Departure 1 Departure Time of Disposition: 13:09 Impression: Primary Impression: Congestive heart failure (CHF) Qualified Codes: I50.43 - Acute on chronic combined systolic (congestive) and diastolic (congestive) heart failure Additional Impressions: CHF exacerbation Qualified Codes: I50.43 - Acute on chronic combined systolic (congestive) and diastolic (congestive) heart failure Hypertension Qualified Codes: I10 - Essential (primary) hypertension Disposition: 09 ADMITTED INPATIENT Admit to: Med Surg Condition: Guarded Critical Care Note Critical Care Time?: Yes (90 min-critical care time only) Stability Stability form required: No Heart Score Heart Score: Heart Score Response (Comments) Value History Slightly Suspicious 0 EKG Normal 0 Age 45-64 1 Risk Factors >3 or Hx ASHD 2 Troponin Normal limit 0 Total 3 ELISHA HOFFMANN MD Jul 21, 2025 13:10
[2025-07-21 13:30] LABS: Hematocrit 47.9 % (41.0-53.0); Hemoglobin 15.6 g/dL (13.5-17.5); Mean Corpuscular Hemoglobin 29.0 pg (28.0-32.0); Mean Corpuscular Volume 89.3 fL (80.0-100.0); Nucleated Red Blood Cells % 0.2 %
[2025-07-21 13:44] LABS: Chloride 104 mmol/L (98-107); Potassium 4.9 mmol/L (3.5-5.1); Sodium 140 mmol/L (136-145)
[2025-07-21 13:45] LABS: Anion Gap 6 (5-15); Calcium 9.2 mg/dL (8.7-10.4); Carbon Dioxide 30 mmol/L (20-31)
[2025-07-21 13:50] LABS: BUN/Creatinine Ratio 12.8 (10.0-20.0)
[2025-07-21 13:52] LABS: Blood Urea Nitrogen 24 mg/dL (9-23); Glucose 233 mg/dL (74-106)
--- NOTE | 2025-07-21 15:22 | DVH ---
XY CHEST PORTABLE, HISTORY: sob COMPARISON: XY CHEST PORTABLE on DOS: 10/09/24, XY CHEST PORTABLE on DOS: 10/04/24, XY CHEST PORTABLE on DOS: 09/29/24 XY CHEST PORTABLE on DOS: 10/09/24, XY CHEST PORTABLE on DOS: 10/04/24, XY CHEST PORTABLE on DOS: 09/29/24 TECHNICAL DATA: 1 view of the chest was obtained. FINDINGS: Lines and tubes: Cardiac pacer is noted. Cardiomediastinal silhouette: enlarged Pulmonary vasculature: normal Lung expansion: normal Lung airspace: normal Lung interstitium: normal Pleura: normal Pneumothorax: no Bones: Unremarkable Other: no IMPRESSION: No acute intrathoracic abnormality.
[2025-07-21 15:42] VITALS: PULSE 79; RESP 12; O2SAT 95
--- NOTE | 2025-07-21 15:51 | ECG ---
[facility] Test Date: 2025-07-21 Test Time: 13:32:50 Pat Name: SANDY SANCHEZ Department: [facility] ED Patient ID: [facility]-[id number] Room: Gender: M Licensed Clinician: gilma : 1970 Requested By: ELISHA HOFFMANN Order Number: [id number] Reading MD: Royal Rutherford Measurements Intervals [place] Rate: 77 P: 62 TN: 190 QRS: 108 QRSD: 108 T: 57 QT: 404 QTc: 458 Interpretive Statements Sinus rhythm Probable left atrial enlargement Lateral infarct, old Electronically Signed On 07-25-2025 14:58:30 PST by Royal Rutherford Please click the below link to view image of tracing.
--- NOTE | 2025-07-21 15:51 | ECG ---
[facility] Test Date: 2025-07-21 Test Time: 15:22:30 Pat Name: SANDY SANCHEZ Department: [facility] ED Patient ID: [facility]-[id number] Room: Gender: M Station Attendant: JIMMIE : 1970 Requested By: ELISHA HOFFMANN Order Number: [id number] Reading MD: Royal Rutherford Measurements Intervals [place] Rate: 74 P: 64 NV: 175 QRS: 117 QRSD: 107 T: 59 QT: 412 QTc: 457 Interpretive Statements Sinus rhythm Lateral infarct, old Electronically Signed On 07-25-2025 14:58:38 PST by Royal Rutherford Please click the below link to view image of tracing.
--- NOTE | 2025-07-21 16:03 | DVHHP2 ---
History of Present Illness Home Meds Active Scripts Indomethacin (Indomethacin) 50 Mg Cap, 1 CAP PO TID, #30 CAP Prov:JOSE LUISABELGRACE PA 05/17/25 Rivaroxaban (XARELTO) 10 Mg Tab, 1 TAB PO DAILY, #30 TAB Prov:TED JAMESON DO 10/04/24 Lisinopril (Lisinopril) 10 Mg Tab, 10 MG PO DAILY for 90 Days, #90 TAB Prov:TED JAMESON DO 10/04/24 Dapagliflozin Propanediol (Farxiga) 10 Mg Tab, 10 MG PO DAILY, #60 TAB Prov:TED JAMESON DO 10/04/24 Atorvastatin Calcium (ATORVASTATIN CALCIUM) 20 Mg Tab, 1 TAB PO HS, #30 TAB 2 Refills Prov:TED JAMESON DO 10/04/24 Sitagliptin Phosphate (Januvia) 100 Mg Tab, 1 TAB PO DAILY, #30 TAB 5 Refills Prov:TED JAMESON DO 10/04/24 Amiodarone HCl (Amiodarone HCl) 200 Mg Tab, 200 MG PO BID for 30 Days, #60 TAB 1 Refill Prov:TED JAMESON DO 10/04/24 Doxycycline (Monohydrate) (Doxycycline) 100 Mg Cap, 100 MG PO BID for 4 Days, #8 CAP 0 Refills Prov:TED JAMESON DO 10/04/24 Furosemide (Lasix) 80 Mg Tab, 80 TAB PO DAILY, #90 TAB 1 Refill Prov:TED JAMESON DO 10/04/24 Reported Medications Semaglutide (Ozempic) 2 Mg/3 Ml Inj, QWEEKLY 10/01/24 Metformin Hydrochloride (Metformin Hcl) 500 Mg Tab, 1000 MG PO BID 10/01/24 Aspirin (Aspir-81) 81 Mg Tab, 1 TAB PO DAILY, #30 TAB 5 Refills 06/11/21 Levetiracetam (KEPPRA TABLET) 500 Mg Tb, 500 MG PO BID, TAB 06/11/21 Hydralazine Hcl (Hydralazine Hcl) 50 Mg Tab, 25 MG PO TID, TAB 06/11/21 Spironolactone (Spironolactone) 25 Mg Tab, 1 TAB PO BID, #90 TAB 1 Refill 06/11/21 Carvedilol (Carvedilol) 12.5 Mg Tab, 1 TAB PO BID, #180 TAB 1 Refill 06/11/21 Allopurinol (ZYLOPRIM TABLET) 100 Mg Tb, 1 TAB PO DAILY, #30 TAB 5 Refills 06/11/21 Albuterol Sulfate (Albuterol Sulfate Hfa) 108 Mcg/Act Aer, 108 MCG IN, AER 06/11/21 Past Medical History Patient Family History: Asthma G8 MOTHER G8 BROTHER G8 SISTER Diabetes mellitus G8 MOTHER Other blood disorders G8 MOTHER H&P Exam Vital Signs Vital Signs Date Time Temp Pulse Resp B/P (MAP) Pulse Ox O2 Delivery O2 Flow Rate FiO2 07/21/25 15:22 74 07/21/25 12:49 98.3 18 154/87 90 98.3 SEPSIS Sepsis Screen Date sepsis recognized/suspect: Jul 21, 2025 Time Sepsis recognized/suspect: 1234 Recent Procedure: No On Antibiotic Therapy: No Respiratory Rate >20: No Heart Rate >90: No Temp<36 C (96.8 F) or >38.3 C: No SBP <90 or MAP <65 mmHG: No New Acute Mental Status Change: No Is the patient on CPAP, BIPAP,: No Physician Orders Chest Portable (07/21/25 12:59) Urinalysis (07/21/25 12:59) Troponin-I Hs (07/21/25 15:59) Electrocardigram (07/21/25 16:38) Vital Signs Date Time Temp Pulse Resp B/P (MAP) Pulse Ox O2 Delivery O2 Flow Rate FiO2 07/21/25 15:22 74 07/21/25 13:32 77 07/21/25 13:10 117 07/21/25 12:49 98.3 85 18 154/87 90 98.3 07/21/25 12:33 117 Laboratory Tests Test 07/21/25 13:13 White Blood Count 4.5 10^3/uL (4.4-10.8) Labs/Xrays Labs Test 07/21/25 14:17 07/21/25 13:13 Range/Units Troponin I High Sensitivity 23 </=54 ng/L White Blood Count 4.5 4.4-10.8 10^3/uL Red Blood Count 5.37 4.5-5.90 10^6/uL Hemoglobin 15.6 13.5-17.5 g/dL Hematocrit 47.9 41.0-53.0 % Mean Corpuscular Volume 89.3 80.0-100.0 fL Mean Corpuscular Hemoglobin 29.0 28.0-32.0 pg Mean Corpuscular Hemoglobin Concent 32.5 32.0-36.0 g/dL Red Cell Distribution Width 17.4 H 11.8-14.3 % Platelet Count 169 140-450 10^3/uL Mean Platelet Volume 8.1 6.9-10.8 fL Neutrophils (%) (Auto) 52.3 37.0-80.0 % Lymphocytes (%) (Auto) 34.0 10.0-50.0 % Monocytes (%) (Auto) 8.9 0.0-12.0 % Eosinophils (%) (Auto) 3.3 0.0-7.0 % Basophils (%) (Auto) 1.5 0.0-2.0 % Neutrophils # (Auto) 2.3 1.6-8.6 10 ^3/uL Lymphocytes # (Auto) 1.5 0.4-5.4 10 ^3/uL Monocytes # (Auto) 0.4 0-1.3 10 ^3/uL Eosinophils # (Auto) 0.1 0-0.8 10 ^3/uL Basophils # (Auto) 0.1 0-0.2 10 ^3/uL Nucleated Red Blood Cells 0.2 % Sodium Level 140 136-145 mmol/L Potassium Level 4.9 3.5-5.1 mmol/L Chloride Level 104 98-107 mmol/L Carbon Dioxide Level 30 20-31 mmol/L Anion Gap 6 5-15 Blood Urea Nitrogen 24 H 9-23 mg/dL Creatinine 1.87 H 0.700-1.30 mg/dL Glomerular Filtration Rate Calc 42 >90 mL/min BUN/Creatinine Ratio 12.8 10.0-20.0 Serum Glucose 233 H 74-106 mg/dL Calcium Level 9.2 8.7-10.4 mg/dL B-Type Natriuretic Peptide 76.00 0-100 pg/mL TED JAMESON DO Jul 21, 2025 16:03
--- NOTE | 2025-07-21 16:15 | DVHDS2 ---
Discharge Summary Date of Admission Date of Discharge: Jul 21, 2025 Labs/Diagnostic Data: Laboratory Results Test 07/21/25 14:17 07/21/25 13:13 Troponin I High Sensitivity 23 ng/L (</=54) White Blood Count 4.5 10^3/uL (4.4-10.8) Red Blood Count 5.37 10^6/uL (4.5-5.90) Hemoglobin 15.6 g/dL (13.5-17.5) Hematocrit 47.9 % (41.0-53.0) Mean Corpuscular Volume 89.3 fL (80.0-100.0) Mean Corpuscular Hemoglobin 29.0 pg (28.0-32.0) Mean Corpuscular Hemoglobin Concent 32.5 g/dL (32.0-36.0) Red Cell Distribution Width 17.4 % (11.8-14.3) Platelet Count 169 10^3/uL (140-450) Mean Platelet Volume 8.1 fL (6.9-10.8) Neutrophils (%) (Auto) 52.3 % (37.0-80.0) Lymphocytes (%) (Auto) 34.0 % (10.0-50.0) Monocytes (%) (Auto) 8.9 % (0.0-12.0) Eosinophils (%) (Auto) 3.3 % (0.0-7.0) Basophils (%) (Auto) 1.5 % (0.0-2.0) Neutrophils # (Auto) 2.3 10 ^3/uL (1.6-8.6) Lymphocytes # (Auto) 1.5 10 ^3/uL (0.4-5.4) Monocytes # (Auto) 0.4 10 ^3/uL (0-1.3) Eosinophils # (Auto) 0.1 10 ^3/uL (0-0.8) Basophils # (Auto) 0.1 10 ^3/uL (0-0.2) Nucleated Red Blood Cells 0.2 % Sodium Level 140 mmol/L (136-145) Potassium Level 4.9 mmol/L (3.5-5.1) Chloride Level 104 mmol/L (98-107) Carbon Dioxide Level 30 mmol/L (20-31) Anion Gap 6 (5-15) Blood Urea Nitrogen 24 mg/dL (9-23) Creatinine 1.87 mg/dL (0.700-1.30) Glomerular Filtration Rate Calc 42 mL/min (>90) BUN/Creatinine Ratio 12.8 (10.0-20.0) Serum Glucose 233 mg/dL (74-106) Calcium Level 9.2 mg/dL (8.7-10.4) B-Type Natriuretic Peptide 76.00 pg/mL (0-100) Other Laboratory Tests 07/21/25 13:13 Brief Hx & Hospital Course: Patient is a 55M with PMH of atrial fibrillation with pacemaker in place who presents with complaints of palpitations. Patient presented with sinus tachycardia to 117. No ST changes noted on EKG. Troponin non-elevated x2. CBC and BMP within normal limits. CXR did not show any acute abnormalities. Patient was monitored for several hours. Noted to be in sinus rhythm with resolution of palpitations. Patient to be discharged home with follow up to be arranged for Thursday with cardiology. Patient given ER return precautions. Discharged in stable condition. Condition at Discharge: Good Final Diagnosis/Problems List Palpitations Secondary Diagnosis: History of Pacemaker History of Atrial Fibrilation Discharge Disposition: Home Discharge Instruct/Medications Scheduled Allopurinol (Zyloprim Tablet), 1 TAB PO DAILY, (Reported) Amiodarone HCl (Amiodarone HCl), 200 MG PO BID Aspirin (Aspir-81), 1 TAB PO DAILY, (Reported) Atorvastatin Calcium (Atorvastatin Calcium), 1 TAB PO HS Carvedilol (Carvedilol), 1 TAB PO BID, (Reported) Dapagliflozin Propanediol (Farxiga), 10 MG PO DAILY Doxycycline (Monohydrate) (Doxycycline), 100 MG PO BID Furosemide (Lasix), 80 TAB PO DAILY Hydralazine Hcl (Hydralazine Hcl), 25 MG PO TID, (Reported) Indomethacin (Indomethacin), 1 CAP PO TID Levetiracetam (Keppra Tablet), 500 MG PO BID, (Reported) Lisinopril (Lisinopril), 10 MG PO DAILY Metformin Hydrochloride (Metformin Hcl), 1,000 MG PO BID, (Reported) Rivaroxaban (Xarelto), 1 TAB PO DAILY Semaglutide (Ozempic), QWEEKLY, (Reported) Sitagliptin Phosphate (Januvia), 1 TAB PO DAILY Spironolactone (Spironolactone), 1 TAB PO BID, (Reported) Miscellaneous Medications Albuterol Sulfate (Albuterol Sulfate Hfa), 108 MCG IN, (Reported) Discharge Statement: "Patient was advised to return to the ER or call 911 if any headaches, dizziness, shortness of breath, chest pain, abdominal pain, bleeding, fevers, or worsening of medical condition. Patient was counseled about treatment plan, medications, possible side effects, patientverbalized understanding. All questions were answered to the best of my ability. This discharge took greater then 30 minutes in planning, reviewing documentation, counseling the patient, and discussing with other team members." ASSESSMENT ASSESSMENT Assessment TED JAMESON DO Jul 21, 2025 16:15
[2025-07-21 17:30] VITALS: BP 154/87; PULSE 73; RESP 14
[2025-07-21 17:59] VITALS: O2SAT 93
--- NOTE | 2025-07-24 07:16 | ECG ---
[facility] Test Date: 2025-07-21 Test Time: 12:33:37 Pat Name: SANDY SANCHEZ Department: [facility] ED Patient ID: [id number] Room: Gender: M Self Storage Manager: gilma : 1970 Requested By: ELISHA HOFFMANN Order Number: [id number] Reading MD: Royal Rutherford Measurements Intervals Mallie Rate: 117 P: 0 DE: 72 QRS: -109 QRSD: 145 T: 64 QT: 393 QTc: 549 Interpretive Statements Sinus tachycardia Probable left atrial enlargement Right bundle branch block Probable inferior infarct, acute Lateral leads are also involved Electronically Signed On 07-25-2025 14:58:22 PST by Royal Rutherford Please click the below link to view image of tracing.
== END 2025-07-21 19:02 | disposition home or self-care (01) ==
LOC: ER 12:29 → EDBD 12:29 → ER 19:00
DX: I11.0 Hypertensive heart disease with heart failure (principal); I50.43 Acute on chronic combined systolic (congestive) and diastolic (congestive) heart failure; E11.9 Type 2 diabetes mellitus without complications; I48.91 Unspecified atrial fibrillation; J44.89 Other specified chronic obstructive pulmonary disease; Z79.82 Long term (current) use of aspirin; Z79.84 Long term (current) use of oral hypoglycemic drugs; Z79.85 Long-term (current) use of injectable non-insulin antidiabetic drugs; Z79.899 Other long term (current) drug therapy; Z86.73 Personal history of transient ischemic attack (TIA), and cerebral infarction without residual deficits; Z88.0 Allergy status to penicillin; Z95.810 Presence of automatic (implantable) cardiac defibrillator
CPT/HCPCS: 36415; 71045; 80048; 83880; 84484; 85025; 93005; 99291; 99292